=== PATIENT | female | born 1975 | race Caucasian/White ===

== ENCOUNTER 2019-06-28 21:01 | Emergency (ER) | payer SELFPAY ==
[2019-06-28 21:26] VITALS: BP 158/90; PULSE 108; RESP 18; TEMP 36.6; O2SAT 98; BMI 19.5
--- NOTE | 2019-06-28 21:28 | W.ED.SKABFB ---
HPI - Skin/Abscess/Foreign Bdy General: Chief complaint: General Medical Stated complaint: skin irritation on scalp Time Seen by Provider: 06/28/19 21:28 Source: patient Mode of arrival: ambulatory Limitations: no limitations History of Present Illness: HPI narrative: 43-year-old female states she had irritation to her posterior scalp roughly 2 hours ago. She said it was very pruritic in nature and some pain to. States that it is gradually resolved and now is very minimal pain. Denies any use of dye. MD complaint: rash Onset (ago): hour(s) Tetanus up to date: yes Location: head Severity: mild Quality: burning Pain Consistency: now resolved Relieving factors: none Exacerbating factors: none Context: none Associated symptoms: Reports itching; Deny chills, fever(s), nausea or vomiting Review of Systems Const: Denies: fever, chills, body aches or change in appetite Eyes: Denies: blurry vision or eye discomfort ENMT: Denies: throat pain or dental pain Card: Denies: chest pain Resp: Denies: shortness of breath GI: Denies: abdominal pain, nausea, vomiting or diarrhea : Denies: painful urination Musc: Denies: neck pain or back pain Skin/Breast: Reports: rash Neuro: Denies: headache Psych: Denies: depression Ervin/Lymph: Denies: easy bruising All/Imm: Denies: hives PFSH ED PFSH: Social History Smoking and tobacco status: current every day smoker Physical Exam Const: COMMON NORMALS: no apparent distress, oriented x3 and healthy appearing HENMT: COMMON NORMALS: normocephalic and head/scalp atraumatic HEAD & SCALP: normocephalic and atraumatic Eye: COMMON NORMALS: PERRL and EOMs intact bilaterally PUPIL: Yes PERRL Neck/C-Spine: COMMON NORMALS: full ROM and supple Chest: COMMONS NORMALS: inspection of chest normal and palpation of chest normal Resp: COMMON NORMALS: normal respiratory effort, no retractions, no use of accessory muscles and clear to auscultation bilaterally AUSCULTATION: clear to auscultation bilaterally Cardio: COMMON NORMALS: regular rate, regular rhythm and no murmurs RATE: regular rate RHYTHM: regular rhythm GI: COMMON NORMALS: normal to inspection, nondistended, normoactive bowel sounds, soft to palpation, non-tender and no masses PALPATION: Yes soft Extremity: COMMON NORMALS: normal to inspection and full ROM Neuro: COMMON NORMALS: oriented x3, moves all extremities and no focal motor deficits Psych: COMMON NORMALS: mental status grossly normal, thought process normal and cooperative THOUGHT PROCESS: normal thought process Skin: COMMON NORMALS: no rashes or lesions noted and no wounds NARRATIVE SKIN EXAM: Irritation to posterior scalp. Very minimal area the very base of her hairline. No signs of abscess or infection. Appears to be dry skin in nature. GENERAL SKIN EXAM: no rashes or lesions noted MDM - Skin/Abscess/Foreign Bdy MDM Narrative: Medical decision making narrative: Patient presents for scalp irritation likely dry skin. Patient has no signs of major rash or abscess. Patient is to use lotion. She is stable for discharge and return if worsening. Discharge Plan Discharge Patient Disposition: Home, Self-Care Clinical Impression: Scalp irritation Condition: Stable Prescriptions: No Action Prilosec OTC 20 mg Tablet,Delayed Release (Dr/Ec) 20 mg PO DAILY RF: 0 Discharge Orders: Discharge Order (Routine); Ordered 06/28/19 Ordered By: Colleen Garcia Discharge Diet: Advance as tolerated Discharge Activity: Resume usual activity Patient Instructions: Acute Rash (ED) Coding Level of Care Code ED Executive Vice President for Dax Min
[2019-06-28] MEDS: diphenhydrAMINE 50 mg Capsule PO (21:36)
[2019-06-28 21:44] VITALS: BP 120/67; PULSE 74; RESP 18; O2SAT 99
== END 2019-06-28 21:44 | disposition home or self-care (01) ==
PROVIDERS: Emergency Provider Emergency Medicine
DX: R23.8 Other skin changes (principal); F17.200 Nicotine dependence, unspecified, uncomplicated
CPT/HCPCS: 12345; 99281; 99283; Q0163

== ENCOUNTER 2019-07-28 17:17 | Emergency (ER) | payer SELFPAY ==
[2019-07-28 18:09] VITALS: BP 145/77; PULSE 114; RESP 18; TEMP 36.6; O2SAT 99; BMI 19.5
--- NOTE | 2019-07-28 18:39 | W.ED.GENADLT ---
HPI - General Adult General: Chief complaint: General Medical Stated complaint: spot on neck Time Seen by Provider: 07/28/19 18:20 Source: patient Mode of arrival: ambulatory Limitations: no limitations History of Present Illness: HPI narrative: Patient is a 43-year-old female who presents to ED today with complaints of pain to the left posterior scalp that she has had for at least 6 months now. Patient tells me pain seems to be intermittent and describes as a sharp brief sensation. Patient tells me she has shaved her head because she thought the hair touching the area caused pain. She has not noticed any rashes or lesions to the area. She does not describe any radicular symptoms into her face or down her back or arm. She has not sought any evaluation as an outpatient for this. Onset (ago): month(s) Location: head and neck Radiation: non-radiation Severity: moderate Quality: stabbing and sharp Pain Consistency: intermittent Relieving factors: none Associated symptoms: Reports no associated symptoms; Deny chest pain, dyspnea, headache(s), malaise, nausea, rash, palpitations, syncope or vomiting Treatments prior to arrival: none Review of Systems Const: Denies: fever, chills, body aches, change in appetite, change in weight, fatigue or malaise Eyes: Denies: change in vision, blurry vision, photophobia, eye discomfort, eye discharge, eye redness, floaters or seeing flashes ENMT: Denies: throat pain, enlarged tonsils, painful swallowing, hoarseness, mouth pain, oral sores/lesions, dental pain, ear pain, tinnitus, disequilibrium, nasal discharge, nasal congestion or nose bleeds Card: Denies: chest pain, palpitations, irregular heart rhythm, edema, lightheadedness, syncope or pre-syncope Resp: Denies: shortness of breath GI: Denies: nausea or vomiting Musc: Reports: neck pain; Denies: back pain, extremity pain, extremity swelling, joint pain or joint swelling Skin/Breast: Denies: rash Neuro: Denies: headache, numbness in extremities, weakness in extremities, changes in sensation, lack of coordination, difficulty walking, frequent falls, dizziness, vertigo or slurred speech PFS ED PFSH: Social History Smoking and tobacco status: current every day smoker Female Reproductive History: Date of last menstrual period: 06/13/19 Physical Exam Const: COMMON NORMALS: no apparent distress, average body habitus, oriented x3, no limitations, healthy appearing, alert and well nourished ORIENTATION/CONSCIOUSNESS: Yes oriented to person, Yes oriented to place and Yes oriented to time HENMT: COMMON NORMALS: normocephalic, head/scalp atraumatic, hearing grossly normal bilaterally, external ears normal, EAC's normal, TM's normal bilaterally, external nose normal, nasal mucous membranes and turbinates normal, moist oral mucous membranes, oropharynx normal and gingiva normal HEAD & SCALP: normal to inspection, normocephalic and atraumatic FACE & SINUS: normal facial exam and sinuses nontender NOSE: external nose normal and nasal mucous membranes and turbinates normal EXTERNAL EAR: Yes external ears normal EXTERNAL AUDITORY CANAL: EAC's normal TYMPANIC MEMBRANE: TM's normal bilaterally MOUTH: lip normal and tongue normal THROAT: posterior oropharynx normal, tonsils normal and uvula midline Eye: COMMON NORMALS: PERRL, EOMs intact bilaterally, conjunctivae normal and no scleral icterus CONJUNCTIVA: Yes conjunctivae normal PUPIL: Yes PERRL Neck/C-Spine: COMMON NORMALS: full ROM, no lymphadenopathy and no meningeal signs OTHER: Patient not having any pain currently but points to the area of pain about her left occipital region. She does have a few 1-2 cm cysts along the left cervical spine a little further down that she states are chronic Resp: COMMON NORMALS: normal respiratory effort and clear to auscultation bilaterally AUSCULTATION: clear to auscultation bilaterally Cardio: COMMON NORMALS: regular rate and regular rhythm RATE: regular rate RHYTHM: regular rhythm Neuro: MAGALY COMA SCALE: document GCS findings Magaly coma scale eye opening: Spontaneous Hewett coma scale verbal response: Orientated Magaly coma scale motor response: Obey commands Hewett coma scale total score: 15 COMMON NORMALS: oriented x3, CN's II-XII intact bilaterally, moves all extremities, no focal motor deficits, no sensory deficits noted and gait normal SENSORIUM/ORIENTATION: Yes alert, Yes oriented to person, Yes oriented to place and Yes oriented to time MENINGEAL SIGNS: Yes no meningeal signs Skin: COMMON NORMALS: no rashes or lesions noted GENERAL SKIN EXAM: no rashes or lesions noted Course Vital Signs: Vital signs: Vital Signs Temperature 98 F 07/28/19 18:09 Pulse Rate 114 H 07/28/19 18:09 Respiratory Rate 18 07/28/19 18:09 Blood Pressure 145/77 07/28/19 18:09 Pulse Oximetry 99 07/28/19 18:09 MDM - General Adult MDM Narrative: Medical decision making narrative: What patient describes sounds like an occipital neuralgia. She has had these symptoms intermittently for approximately 6 months. Ultimately I recommend she follow-up with PCP for further evaluation so they can start medications such as Tegretol/Gabapentin if indicated. She also has some additional cysts to the left of her lower cervical spine. I do not palpate any cystic-like structures near her occipital region that could be causing symptoms. I do not feel patient needs any ED work-up today as her complaint is non-emergent in nature. Her information was placed with case management for further follow-up. Discharge Plan Discharge Patient Disposition: Home, Self-Care Clinical Impression: Occipital neuralgia of left side Condition: Stable Prescriptions: No Action Prilosec OTC 20 mg Tablet,Delayed Release (Dr/Ec) 20 mg PO DAILY RF: 0 Discharge Orders: Discharge Order (Routine); Ordered 07/28/19 Ordered By: Honey Quintana Discharge Diet: Usual diet Discharge Activity: Resume usual activity Activity Restrictions/Additional Instructions: As discussed case management should contact you to set you up with a primary care provider for further evaluation. Discharge Date/Time: 07/28/19 19:37 Coding Level of Care Code ED Regional Owner Operator Truck Driver for Dax Min
--- NOTE | 2019-07-29 13:14 | DCPLANNER ---
quality compliance manager had message to speak with patient about getting established with a primary care physician. quality compliance manager was unable to speak with patient at this time, a voicemail was left for patient to return onsite case manager phone call.
== END 2019-07-28 19:37 | disposition home or self-care (01) ==
PROVIDERS: Emergency Provider Physician Assistant
DX: M54.81 Occipital neuralgia (principal); F17.210 Nicotine dependence, cigarettes, uncomplicated
CPT/HCPCS: 12345; 99281

== ENCOUNTER 2019-09-13 15:02 | Emergency (ER) | payer SELFPAY ==
[2019-09-13 15:47] VITALS: BP 121/62; PULSE 69; RESP 18; TEMP 36.4; O2SAT 99; BMI 19.5
--- NOTE | 2019-09-13 17:08 | W.ED.EYEPROB ---
HPI - Eye Problem General: Chief complaint: Eye Problems Stated complaint: cant see out of r eye Time Seen by Provider: 09/13/19 16:55 History of Present Illness: HPI Narrative: 43-year-old female who was washing her hair today got some soap in her eye and is been unable to open her eyes since then is been extremely photophobic and tender. She denies any other trauma or injury to the eye when she is able to open her eyes she can distinguish light and see with it. chief complaint: eye pain Onset (ago): hour(s) Onset description: sudden Duration: constant Location: right eye Eye Symptoms: burning, redness, pain, foreign body sensation, blurry vision and photophobia Place: home Mechanism: chemical exposure Severity: severe If Pain, Quality: sharp Associated symptoms: Reports no associated symptoms; Denies fever(s) Treatments Prior to Arrival: none Review of Systems Const: Denies: fever(s), chills, body aches, change in appetite, fatigue or malaise ENMT: Denies: throat pain, ear or mastoid pain, nasal discharge or nasal congestion Card: Denies: chest pain, edema, dyspnea on exertion or orthopnea Resp: Denies: dyspnea, productive cough or non-productive cough Skin/Breast: Denies: rash or pruritus PFSH ED PFSH: Social History Smoking and tobacco status: current every day smoker Female Reproductive History: Date of last menstrual period: 09/10/19 Physical Exam Const: COMMON NORMALS: no acute distress GENERAL APPEARANCE: cooperative and comfortable ORIENTATION/CONSCIOUSNESS: Yes awake, Yes oriented to person, Yes oriented to place and Yes oriented to time HENMT: COMMON NORMALS: normocephalic, atraumatic, hearing grossly normal bilaterally, external ears normal, EAC's normal, TM's normal bilaterally, Normal nasal mucous membranes and turbinates present, moist oral mucous membranes and oropharynx normal HEAD & SCALP: normocephalic and atraumatic NOSE: Normal nasal mucous membranes and turbinates present EXTERNAL EAR: Yes external ears normal EXTERNAL AUDITORY CANAL: EAC's normal TYMPANIC MEMBRANE: TM's normal bilaterally Eye: OTHER: Moderate swelling of the right upper eyelid the patient is holding her eyes shut when eyes open sclera and conjunctiva mildly reddened pupil reactive patient is able to distinguish light and dark but she has moderately photophobic. Subsequently tetracaine topical applied and then fluorescein applied I examined with Wood's lamp. No foreign bodies no corneal abrasions. Neck/C-Spine: COMMON NORMALS: full ROM, no lymphadenopathy, supple and no JVD Lymph: LYMPHATIC: no lymphadenopathy noted and no lymphedema noted Resp: COMMON NORMALS: normal respiratory effort, No retractions, No use of accessory muscles and clear to auscultation bilaterally AUSCULTATION: clear to auscultation bilaterally Cardio: COMMON NORMALS: no JVD, regular rate, regular rhythm and No murmurs present (Cardio) RATE: regular rate RHYTHM: regular rhythm GI: COMMON NORMALS: Soft to palpation and No hepatosplenomegaly present AUSCULTATION: Yes normoactive bowel sounds PALPATION: Yes Soft to palpation, No Tenderness to palpation present (GI), No Guarding due to palpation present (GI) and Yes No hepatosplenomegaly present Extremity: COMMON NORMALS: normal to inspection, capillary refill normal, no clubbing, cyanosis or edema, no calf tenderness and no pedal edema Neuro: SENSORIUM/ORIENTATION: Yes oriented to person, Yes oriented to place and Yes oriented to time Skin: COMMON NORMALS: no rashes or lesions noted GENERAL SKIN EXAM: no rashes or lesions noted Course Vital Signs: Vital signs: Vital Signs Temperature 97.6 F 09/13/19 15:47 Pulse Rate 70 09/13/19 18:00 Respiratory Rate 15 09/13/19 18:00 Blood Pressure 112/64 09/13/19 18:00 Pulse Oximetry 98 09/13/19 18:00 MDM - Eye Problem MDM Narrative: Medical decision making narrative: Acute iritis. He was started on topical TobraDex. Have her follow-up with ophthalmology or optometry in the next 2 to 3 days return if worsens Discharge Plan Discharge Patient Disposition: Home, Self-Care Clinical Impression: Acute iritis Condition: Stable Prescriptions: New TobraDex 0.3-0.1 % drops,suspension 2 drop ophthalmic (eye) Q6H 5 Days Qty: 10 RF: 0 No Action Prilosec OTC 20 mg Tablet,Delayed Release (Dr/Ec) 20 mg PO DAILY RF: 0 Discharge Orders: Discharge Order (Routine); Ordered 09/13/19 Ordered By: Poncho Mason Activity Restrictions/Additional Instructions: This management will call to refer you to the electrician apprentice powerhouse Discharge Date/Time: 09/13/19 18:01 Coding Level of Care Code ED Drywall Metal Stud Worker for Chg Fwd Exam Comprehensive
[2019-09-13] MEDS: tetanus-dipt-pertussis 0.5 mL SDV IM (17:43)
[2019-09-13 18:00] VITALS: BP 112/64; PULSE 70; RESP 15; O2SAT 98
--- NOTE | 2019-09-13 18:02 | PC.NURSE ---
Read and agree with assessment
--- NOTE | 2019-09-14 11:16 | DCPLANNER ---
business change manager had message to schedule a follow up appointment for patient with an consumer analyst. business change manager called the phone number [phone], was told that the wireless customer is unavailable at this time. business change manager was unable to speak with patient at this time, and unable to leave a voicemail for patient.
== END 2019-09-13 18:01 | disposition home or self-care (01) ==
PROVIDERS: Emergency Provider Family Medicine
DX: H20.00 Unspecified acute and subacute iridocyclitis (principal); F17.210 Nicotine dependence, cigarettes, uncomplicated; Z23 Encounter for immunization
CPT/HCPCS: 12345; 90715; 99281; 99283

== ENCOUNTER 2020-01-19 11:27 | Emergency (ER) | payer SELFPAY ==
[2020-01-19 11:44] VITALS: BP 124/69; PULSE 96; RESP 14; TEMP 36.4; O2SAT 100; BMI 19.5
--- NOTE | 2020-01-19 11:51 | ED_ITS ---
HPI - Eye Problem General: Chief complaint: Eye Problems Stated complaint: left eye pain Time Seen by Provider: 01/19/20 11:48 Source: patient Mode of arrival: ambulatory Limitations: no limitations History of Present Illness: HPI Narrative: Eunice is a very nice 44-year-old female who presents to the ER with a complaint of left eye pain. She states she woke up this way. She has a history of similar symptoms that she said she had to be placed on an antibiotic for. She thinks it is possible she could have scratched her eye but does not remember anything specifically flying into her eye. Patient has no headache or nausea or vomiting. She states her vision is just blurry but she does have photophobia associated with this. Patient states this is like when she had similar pain in the past. Associated symptoms: Denies fever(s), headache(s), nausea, neck pain or vomiting Review of Systems Const: Denies: fever(s), chills, body aches, fatigue, malaise or diaphoresis Eyes: Reports: blurry vision, photophobia, eye discomfort, eye discharge and eye redness ENMT: Denies: throat pain, odynophagia, hoarseness, swelling of lips/tongue, ear or mastoid pain, ear discharge, change in hearing or nasal discharge Card: Denies: chest pain, palpitations, irregular heart rhythm, edema, lightheadedness, syncope, pre-syncope, dyspnea on exertion or orthopnea Resp: Denies: dyspnea, productive cough, non-productive cough, wheezing, hemoptysis or chest congestion GI: Denies: abdominal pain, nausea, vomiting, hematemesis, coffee ground emesis, heartburn, diarrhea, constipation, GI cramping, hematochezia or melena : Denies: flank pain, dysuria, urinary frequency, urinary urgency or jim turia Musc: Denies: neck pain, back pain, extremity pain, extremity swelling, joint pain, joint swelling, joint redness, joint warmth or joint stiffness Skin/Breast: Denies: rash, pruritus, erythema, skin pain or skin tenderness Neuro: Denies: headache(s), numbness in extremities, weakness in extremities, sensory changes, lack of coordination, difficulty walking, dizziness, vertigo, confusion, Slurred speech present or seizure-like activity Jim/Lymph: Denies: easy bruising, easy bleeding, petechiae, purpura or enlarged lymph nodes All/Imm: Denies: urticaria, throat swelling, tongue swelling, facial swelling or acute wheezing PFSH ED PFSH: Medical History (Updated 01/19/20 @ 12:19 by Keiry Littlejohn) No pertinent past medical history Social History Smoking and tobacco status: current every day smoker Female Reproductive History: Date of last menstrual period: 09/10/19 Physical Exam Const: COMMON NORMALS: no acute distress, patient oriented x3, no limitations and alert GENERAL APPEARANCE: cooperative HENMT: COMMON NORMALS: normocephalic, atraumatic, external ears normal, EAC's normal and Normal external nose present HEAD & SCALP: normal to inspection, normocephalic and atraumatic FACE & SINUS: normal facial exam and face symmetric NOSE: Normal external nose present and Normal nares present EXTERNAL EAR: Yes external ears normal EXTERNAL AUDITORY CANAL: EAC's normal MOUTH: Normal oral and palatal mucosa present, lip normal and tongue normal Eye: COMMON NORMALS: Equal, round and reactive pupils present, EOMs intact bilaterally, conjunctivae normal, no scleral icterus and normal visual chester by confrontation VISUAL ACUITY: Yes acuity normal (Once tetracaine given normal vision acuity from the left eye) ALIGNMENT: Yes alignment normal PERIORBITAL: periorbital findings normal EYELID: eyelids normal CONJUNCTIVA: Yes conjunctivae normal PUPIL: Yes Equal, round and reactive pupils present SLIT LAMP EXAM: Yes slit lamp exam performed with fluorescein OTHER: Large corneal abrasion noted in the r inferior portion of the cornea to the lateral aspect of the left eye. No definitive evidence of foreign body present. Neck/C-Spine: COMMON NORMALS: full ROM, no lymphadenopathy, supple, no meningeal signs and no JVD GENERAL: Yes normal visual inspection and Yes trachea midline Chest: COMMONS NORMALS: normal inspection of the chest and normal palpation of entire chest wall Resp: COMMON NORMALS: normal respiratory effort, No retractions, No use of accessory muscles and clear to auscultation bilaterally EFFORT & INSPECTION: Yes able to speak in complete sentences and Yes symmetric chest movement AUSCULTATION: clear to auscultation bilaterally, no crackles, no rales, no rhonchi and no wheezes Cardio: COMMON NORMALS: no JVD, regular rate, regular rhythm, S1 normal heart sound present and S2 normal heart sound present RATE: regular rate RHYTHM: regular rhythm HEART SOUNDS: S1 normal heart sound present, S2 normal heart sound present, no click, no gallops, no murmurs and no rubs GI: COMMON NORMALS: Soft to palpation and No hepatosplenomegaly present PALPATION: Yes Soft to palpation, No Tenderness to palpation present (GI), No Guarding due to palpation present (GI), No Rigid due to palpation, Yes No hepatosplenomegaly present, No Hernia present, No Palpable mass present and No Pulsatile mass present : COMMON NORMALS: Yes no CVA tenderness BLADDER/KIDNEY EXAM: Yes no CVA tenderness EXTERNAL FEMALE EXAM: No Hernia present Back/Pelvis: COMMON NORMALS: no CVA tenderness, thoracic and lumbar spine normal to inspection, no thoracic nor lumbar tenderness and thoraco-lumbar ROM normal Extremity: COMMON NORMALS: normal to inspection, full ROM, capillary refill normal, no joint enlargement, no clubbing, cyanosis or edema and no calf tenderness Neuro: COMMON NORMALS: patient oriented x3, CN's II-XII intact bilaterally, moves all extremities, no focal motor deficits and no sensory deficits noted SENSORIUM/ORIENTATION: Yes alert MENINGEAL SIGNS: Yes no meningeal signs SPEECH: speech normal Psych: COMMON NORMALS: mental status grossly normal, Normal thought process present, cooperative, normal affect, speech normal and activity/motor behavior normal SPEECH: Yes normal speech THOUGHT PROCESS: Normal thought process present Skin: COMMON NORMALS: no rashes or lesions noted, turgor normal, no jaundice, no petechiae and no mottling GENERAL SKIN EXAM: no rashes or lesions noted and turgor normal Course Vital Signs: Vital signs: Vital Signs Temperature 97.5 F L 01/19/20 11:44 Pulse Rate 96 01/19/20 11:44 Respiratory Rate 14 01/19/20 11:44 Blood Pressure 124/69 01/19/20 11:44 Pulse Oximetry 100 01/19/20 11:44 MDM - Eye Problem MDM Narrative: Medical decision making narrative: The case was reviewed with ASUNCION Rai, on-call for Dr. Malagon. He agrees that the patient can be seen in the office today for recheck. Concern is the degree of corneal abrasion that is present plus the purulent discharge. Patient agrees that she can make this appointment and we will discharge her to Dr. Malagon's office soon as that time was given to us. Dr. Malagon's office is called back and they will see the patient today at 2:00. Patient declines to wait here for further numbing medicine but would take 1 or 2 drops just before she goes and she will follow-up with Dr. Malagon today for recheck. Discharge Plan Discharge Patient Disposition: Home Clinical Impression: Corneal abrasion Qualifiers: Encounter type: initial encounter Laterality: left Qualified Code(s): S05.02XA - Injury of conjunctiva and corneal abrasion without foreign body, left eye, initial encounter Condition: Stable Prescriptions: No Action Prilosec OTC 20 mg Tablet,Delayed Release (Dr/Ec) 20 mg PO DAILY RF: 0 Discharge Orders: Discharge Order (Routine); Ordered 01/19/20 Ordered By: Keiry Littlejohn Discharge Diet: Usual diet Discharge Activity: Limit activity as instructed Patient Instructions: Corneal Abrasion (ED) Activity Restrictions/Additional Instructions: Please return to the ER immediately for any of the signs or symptoms listed on your discharge instruction sheets, worsening/changing of your symptoms, you are not getting better as quickly as expected, or for ANY other cause or concerns. Go directly to Dr. Malagon office for an appointment to be seen at 2:00. You should be there early so they can be certain that you can see him immediately at 2 PM. If for any reason this falls through return to the ER for recheck. Discharge Date/Time: 01/19/20 12:44 Coding Level of Care Code ED Gear Machine Operator General for Dax Fwrinku Exam Comprehensive
[2020-01-19] MEDS: fluorescein 1 mg Strip EYE-LEFT (11:59)
[2020-01-19] MEDS: tetracaine 0.5% Op Soln 4 mL Btl 1 DROP EYE-LEFT (12:00)
--- NOTE | 2020-01-19 12:37 | PC.NURSE ---
slit lamp in room along with the monson lamp
== END 2020-01-19 12:44 | disposition home or self-care (01) ==
PROVIDERS: Emergency Provider Emergency Medicine
DX: S05.02XA Injury of conjunctiva and corneal abrasion without foreign body, left eye, initial encounter (principal); F17.210 Nicotine dependence, cigarettes, uncomplicated; X58.XXXA Exposure to other specified factors, initial encounter
CPT/HCPCS: 12345; 99281; 99282

== ENCOUNTER 2021-05-07 04:17 | Emergency (ER) | payer SELFPAY ==
[2021-05-07 04:30] VITALS: BP 115/51; PULSE 108; RESP 18; TEMP 37.3; O2SAT 99; BMI 20.3
--- NOTE | 2021-05-07 04:40 | W.ED.NECK ---
HPI - Neck Pain/Injury General: Chief Complaint: Neck Pain/Injury Stated Complaint: Knots on back of neck Time Seen by Provider: 05/07/21 04:37 Source: patient Mode of arrival: ambulatory Limitations: no limitations History of Present Illness: 45-year-old female who states she has had a knot to her left upper neck has been going on for 5 to 6 years. States its been slowly growing is currently the size of a large marble she states that she started to get concerned that was going to go into her neck states it does cause some slight pain at times but typically it is pain-free she denies any drainage from it denies any erythema or fevers denies any drainage. Associated symptoms: Denies headache(s) or nausea Review of Systems Const: Denies: fever(s), chills, body aches or change in appetite Eyes: Denies: blurry vision or eye discomfort ENMT: Denies: throat pain or dental pain Card: Denies: chest pain Resp: Denies: dyspnea GI: Denies: abdominal pain, nausea, vomiting or diarrhea : Denies: dysuria Musc: Denies: neck pain or back pain Skin/Breast: Reports: lesions; Denies: rash Neuro: Denies: headache(s) Psych: Denies: depression Ervin/Lymph: Denies: easy bruising All/Imm: Denies: urticaria PFSH ED PFSH: Medical History (Updated 05/07/21 @ 04:43 by Colleen Garcia MD) No pertinent past medical history Social History Smoking and tobacco status: current every day smoker Female Reproductive History: Date of last menstrual period: 09/10/19 Physical Exam Const: COMMON NORMALS: no acute distress, patient oriented x3 and healthy appearing HENMT: COMMON NORMALS: normocephalic and atraumatic HEAD & SCALP: normocephalic and atraumatic Eye: COMMON NORMALS: Equal, round and reactive pupils present and EOMs intact bilaterally PUPIL: Yes Equal, round and reactive pupils present Neck/C-Spine: COMMON NORMALS: full ROM and supple Chest: COMMONS NORMALS: normal inspection of the chest and normal palpation of entire chest wall Resp: COMMON NORMALS: normal respiratory effort, No retractions, No use of accessory muscles and clear to auscultation bilaterally AUSCULTATION: clear to auscultation bilaterally Cardio: COMMON NORMALS: regular rate, regular rhythm and No murmurs present (Cardio) RATE: regular rate RHYTHM: regular rhythm GI: COMMON NORMALS: Normal to inspection, nondistended, normoactive bowel sounds present, Soft to palpation, non-tender and no masses PALPATION: Yes Soft to palpation Extremity: COMMON NORMALS: normal to inspection and full ROM Neuro: COMMON NORMALS: patient oriented x3, moves all extremities and no focal motor deficits Psych: COMMON NORMALS: mental status grossly normal, Normal thought process present and cooperative THOUGHT PROCESS: Normal thought process present Skin: COMMON NORMALS: no rashes or lesions noted and no wounds NARRATIVE SKIN EXAM: Large marble size lipoma to the left side of her upper back no warmth or erythema GENERAL SKIN EXAM: no rashes or lesions noted Course Vital Signs: Vital signs: Vital Signs Temperature 99.2 F 05/07/21 04:30 Pulse Rate 108 H 05/07/21 04:30 Respiratory Rate 18 05/07/21 04:30 Blood Pressure 115/51 05/07/21 04:30 Pulse Oximetry 99 05/07/21 04:30 MDM - Neck Pain/Injury Medical Decision Making Patient presents here with a likely lipoma to the back of her neck that is been there for roughly 5 to 6 years soft no signs of abscess or cellulitis we will get her follow-up with dermatology for likely removal she was stable for discharge. Discharge Plan Discharge Patient Disposition: Home Clinical Impression: Lipoma Condition: Stable Prescriptions: No Action Prilosec OTC 20 mg Tablet,Delayed Release (Dr/Ec) 20 mg PO DAILY 0RF Discharge Orders: Discharge ED (Routine); Ordered 05/07/21 Ordered By: Colleen Garcia Referrals: Shobha Burden DO [Physician] - 1-3 days Discharge Diet: Advance as tolerated Discharge Activity: Resume usual activity Patient Instructions: Lipoma (ED) Coding Level of Care Code ED Peat Shredder Tender for Dax Min
--- NOTE | 2021-05-07 09:15 | DCPLANNER ---
Addendum entered by Halima Delgado 05/10/21 05:33: Patient has a follow up appointment scheduled with Dermatology scheduled for Sunday, June 13, [address] at 2:[address] Burden. Clinic will call patient with appointment information. Original Note: manager of sustainability had message to schedule a follow up appointment for patient with dermatology. manager of sustainability called the dermatology clinic, spoke with Mary, gave clinic patients information. manager of sustainability was told that patients information would be printed and reviewed. Clinic will call patient with appointment information.
== END 2021-05-07 04:51 | disposition home or self-care (01) ==
PROVIDERS: Emergency Provider Emergency Medicine
DX: D17.9 Benign lipomatous neoplasm, unspecified (principal); F17.210 Nicotine dependence, cigarettes, uncomplicated
CPT/HCPCS: 99281

== ENCOUNTER 2023-01-10 16:54 | Inpatient (IN) | payer MEDICAID, SELFPAY ==
[2023-01-10] VITALS (8 sets, daily range): BP systolic 115–128; BP diastolic 61–98; PULSE 100–129; RESP 18–24; TEMP 36.4–36.7; O2SAT 9–100; BMI 19.5
--- NOTE | 2023-01-10 17:21 | XRR_ITS ---
PROCEDURE INFORMATION: Exam: XR Chest Exam date and time: 01/10/2023 5:41 PM Age: 47 years old Clinical indication: Shortness of breath; Additional info: Dyspnea/cough TECHNIQUE: Imaging protocol: Radiologic exam of the chest. Views: 1 view. COMPARISON: CR XR KUB [id number] 05/15/2018 10:06 PM FINDINGS: Lungs: Irregular opacities in the lung bases bilaterally. Pleural spaces: Unremarkable. No pleural effusion. No pneumothorax. Heart/Mediastinum: Unremarkable. No cardiomegaly. Bones/joints: Unremarkable. XR/XR chest 1V portable [id number] IMPRESSION: Irregular opacities in the lung bases bilaterally.
--- NOTE | 2023-01-10 17:21 | ED_ITS ---
HPI - SOB/Dyspnea General: Chief Complaint: Shortness of Breath/Dyspnea Stated Complaint: SOB/anxiety Time Seen by Provider: 01/10/23 17:19 Source: patient Mode of arrival: ambulatory History of Present Illness: Associated symptoms: Deny abdominal pain, chest pain or fever(s) Review of Systems Const: Denies: fever(s) or chills Card: Denies: chest pain Resp: Reports: dyspnea, non-productive cough and wheezing GI: Denies: abdominal pain : Denies: dysuria, urinary frequency or urinary urgency Musc: Denies: neck pain or back pain Skin/Breast: Denies: rash PFSH ED PFSH: Medical History No pertinent past medical history Social History Smoking and tobacco/nicotine status: current every day tobacco/nicotine user Physical Exam Const: COMMON NORMALS: no acute distress GENERAL APPEARANCE: cooperative and comfortable ORIENTATION/CONSCIOUSNESS: Yes awake, Yes oriented to person, Yes oriented to place and Yes oriented to time HENMT: COMMON NORMALS: normocephalic, atraumatic and hearing grossly normal bilaterally HEAD & SCALP: normocephalic and atraumatic Resp: COMMON NORMALS: normal respiratory effort, No retractions, No use of accessory muscles and clear to auscultation bilaterally AUSCULTATION: clear to auscultation bilaterally Cardio: COMMON NORMALS: regular rate, regular rhythm and No murmurs present (Cardio) RATE: regular rate RHYTHM: regular rhythm GI: COMMON NORMALS: Soft to palpation and No hepatosplenomegaly present AUSCULTATION: Yes normoactive bowel sounds PALPATION: Yes Soft to palpation, No Tenderness to palpation present (GI), No Guarding due to palpation present (GI) and Yes No hepatosplenomegaly present Extremity: COMMON NORMALS: normal to inspection, capillary refill normal, no clubbing, cyanosis or edema, no calf tenderness and no pedal edema Neuro: SENSORIUM/ORIENTATION: Yes oriented to person, Yes oriented to place and Yes oriented to time Skin: COMMON NORMALS: no rashes or lesions noted GENERAL SKIN EXAM: no ra shes or lesions noted Course Vital Signs: Vital signs: Vital Signs Temperature 97.5 F L 01/10/23 17:10 Pulse Rate 129 H 01/10/23 17:10 Respiratory Rate 18 01/10/23 17:10 Blood Pressure 120/61 01/10/23 17:10 Pulse Oximetry 93 01/10/23 17:10 Oxygen Delivery Me thod Room Air 01/10/23 17:10 Discharge Plan Discharge Condition: Stable Prescriptions: No Action Prilosec OTC 20 mg Tablet,Delayed Release (Dr/Ec) 20 mg PO DAILY Coding Level of Care Code ED Toggle Press Folder And Feeder for Dax Min
[2023-01-10] MEDS: ipratropium-albuterol 3 mL Neb INHALATION (17:56)
--- NOTE | 2023-01-10 17:58 | ECG_ITS ---
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 Measurements Intervals [place] Rate: 108 P: 44 [place]: 165 QRS: -50 QRSD: 169 T: 108 QT: 385 QTc: 516 Interpretive Statements SINUS TACHYCARDIA LEFT ATRIAL ENLARGEMENT [-0.15mV P-WAVE IN V1/V2] LEFT AXIS DEVIATION [QRS AXIS < -30] LEFT BUNDLE BRANCH BLOCK [120+ ms QRS DURATION, 80+ ms Q/S IN V1/V2, 85+ ms R IN I/aVL/V5/V6] No previous ECG available for comparison Electronically Signed On 01-10-2023 21:27:54 CDT by Ron Graham M.D. [id number]
--- NOTE | 2023-01-10 17:59 | W.ED.SOB ---
HPI - SOB/Dyspnea General: Chief Complaint: Shortness of Breath/Dyspnea Stated Complaint: SOB/anxiety Time Seen by Provider: 01/10/23 17:19 Source: patient Mode of arrival: ambulatory Limitations: no limitations History of Present Illness: HPI Narrative: 47-year-old female who has a history of asthma states that she had ran out of her inhaler states been having some shortness of breath for 2 weeks it got much worse this morning at 7 AM. She is wheezing here she has had a slight cough she denies any fever she denies any chest pain she denies any worsening improving factors. Associated symptoms: Deny abdominal pain, chest pain, fever(s), nausea or vomiting Review of Systems Const: Denies: fever(s), chills, body aches or change in appetite Eyes: Denies: blurry vision or eye discomfort ENMT: Denies: throat pain or dental pain Card: Denies: chest pain Resp: Reports: dyspnea, non-productive cough and wheezing GI: Denies: abdominal pain, nausea, vomiting or diarrhea : Denies: dysuria Musc: Denies: neck pain or back pain Skin/Breast: Denies: rash Neuro: Denies: headache(s) Psych: Denies: depression Ervin/Lymph: Denies: easy bruising All/Imm: Denies: urticaria PFSH ED PFSH: Medical History No pertinent past medical history Social History Smoking and tobacco/nicotine status: current every day tobacco/nicotine user Physical Exam Const: COMMON NORMALS: patient oriented x3 HENMT: COMMON NORMALS: normocephalic and atraumatic HEAD & SCALP: normocephalic and atraumatic Eye: COMMON NORMALS: Equal, round and reactive pupils present and EOMs intact bilaterally PUPIL: Yes Equal, round and reactive pupils present Neck/C-Spine: COMMON NORMALS: full ROM and supple Chest: COMMONS NORMALS: normal inspection of the chest and normal palpation of entire chest wall Resp: COMMON NORMALS: No retractions and No use of accessory muscles AUSCULTATION: wheezes Cardio: COMMON NORMALS: regular rhythm and No murmurs present (Cardio) RATE: tachycardic RHYTHM: regular rhythm GI: COMMON NORMALS: Normal to inspection, nondistended, normoactive bowel sounds present, Soft to palpation, non-tender and no masses PALPATION: Yes Soft to palpation Extremity: COMMON NORMALS: normal to inspection and full ROM Neuro: COMMON NORMALS: patient oriented x3, moves all extremities and no focal motor deficits Psych: COMMON NORMALS: mental status grossly normal, Normal thought process present and cooperative THOUGHT PROCESS: Normal thought process present Skin: COMMON NORMALS: no rashes or lesions noted and no wounds GENERAL SKIN EXAM: no rashes or lesions noted Course Vital Signs: Vital signs: Vital Signs Temperature 97.5 F L 01/10/23 17:10 Pulse Rate 114 H 01/10/23 19:07 Respiratory Rate 22 H 01/10/23 19:07 Blood Pressure 128/98 01/10/23 19:07 Pulse Oximetry 93 01/10/23 19:07 Oxygen Delivery Me thod Room Air 01/10/23 19:07 MDM - SOB/Dyspnea Medical Decision Making Patient presents here with dyspnea likely from new onset CHF CT shows vascular congestion with cardiomegaly her BNP is elevated she had no chest pain here we will treat with Ave almeida to the hospitalist will admit to [facility] Medical Records I reviewed the patient's medical records. Lab Data I reviewed the patient's lab results. 01/10/23 17:50 01/10/23 17:50 Labs/Radiology: Radiology Impressions Chest X-Ray 01/10/23 17:21 IMPRESSION: Irregular opacities in the lung bases bilaterally. Chest CTA 01/10/23 18:11 IMPRESSION: 1. No pulmonary embolus. 2. Cardiomegaly with bilateral pleural effusions and pulmonary vascular congestion consistent with CHF exacerbation. Laboratory Results WBC 7.38 10^3/uL (3.29-11.43) 01/10/23 17:50 RBC 4.64 10^6/uL (3.85-5.65) 01/10/23 17:50 Hgb 12.30 g/dL (11.27-16.99) 01/10/23 17:50 Hct 40.4 % (36-47) 01/10/23 17:50 MCV 87.1 fl (85-98) 01/10/23 17:50 MCH 26.5 pg (27-33) L 01/10/23 17:50 MCHC 30.4 g/dL (30-55) 01/10/23 17:50 RDW 17.2 % (12.1-15.1) H 01/10/23 17:50 Plt Count 474 10^3/cmm (157-399) H 01/10/23 17:50 MPV 8.2 fL (7.4-10.4) 01/10/23 17:50 Neut % (Auto) 74.0 % 01/10/23 17:50 Lymph % (Auto) 17.9 % 01/10/23 17:50 [place] % (Auto) 6.1 % 01/10/23 17:50 Eos % (Auto) 1.1 % 01/10/23 17:50 Baso % (Auto) 0.4 % 01/10/23 17:50 Neut # (Auto) 5.46 10^3/uL (1.8-7.7) 01/10/23 17:50 Lymph # (Auto) 1.3 10^3/uL (0.8-4.8) 01/10/23 17:50 [place] # (Auto) 0.5 10^3/uL (0.2-0.9) 01/10/23 17:50 Eos # (Auto) 0.1 10^3/uL (0.0-0.8) 01/10/23 17:50 Baso # (Auto) 0.0 10^3/uL (0.0-0.1) 01/10/23 17:50 Nucleated RBC % (auto) 0 % 01/10/23 17:50 Nucleated RBCs # 0.0 /100WBC 01/10/23 17:50 Sodium 137 mmol/L (136-145) 01/10/23 17:50 Potassium 4.3 mmol/L (3.5-5.1) 01/10/23 17:50 Chloride 104 mmol/L (98-107) 01/10/23 17:50 Carbon Dioxide 24 mmol/L (22-29) 01/10/23 17:50 Anion Gap 13.3 (5-19) 01/10/23 17:50 BUN 15 mg/dL (6-20) 01/10/23 17:50 Creatinine 0.6 mg/dL (0.5-0.9) 01/10/23 17:50 GFR Calculation 106.7 mL/min (90-130) 01/10/23 17:50 Glucose 116 mg/dL (65-115) H 01/10/23 17:50 Calculated Osmolality 286 mOsm/kg (285-295) 01/10/23 17:50 Calcium 8.6 mg/dL (8.5-10.5) 01/10/23 17:50 Total Bilirubin 0.3 mg/dL (0.15-1.2) 01/10/23 17:50 AST 37 U/L (0-32) H 01/10/23 17:50 ALT 40 U/L (0-33) H 01/10/23 17:50 Alkaline Phosphatase 112 U/L (35-105) H 01/10/23 17:50 Troponin T Baseline 26 ng/L (0-10) H 01/10/23 17:50 NT-Pro-B Natriuret Pep 09850 pg/mL (0-125) H 01/10/23 17:50 Total Protein 6.3 g/dL (6.6-8.7) L 01/10/23 17:50 Albumin 3.7 g/dL (3.5-5.2) 01/10/23 17:50 Globulin 2.6 g/dL (1.3-4.6) 01/10/23 17:50 All radiology interpretation(s) finalized by discharge Critical Care Time Critical Care Time: Critical Care Time: Yes Total Critical Care Time: 45 Attestation: The high probability of a clinically significant, sudden or life threatening deterioration of the patient's cv system(s) required my full and direct attention, intervention and personal management. The critical care time is as shown. This time is in addition to time spent performing any reported procedures but includes the following: [x] Data and vital sign review and interpretation [x] Patient assessment, examination and intervention [x] Documentation [x] Medication orders and management Discharge Plan Discharge Patient Disposition: Admitted As Inpatient Clinical Impression: CHF exacerbation Condition: Stable Prescriptions: No Action Prilosec OTC 20 mg Tablet,Delayed Release (Dr/Ec) 20 mg PO DAILY Coding Level of Care Code ED Supervisor Beater Room for Dax Min
[2023-01-10] MEDS: dexamethasone 10 mg/mL INJ IM (18:06)
--- NOTE | 2023-01-10 18:11 | CTR_ITS ---
PROCEDURE INFORMATION: Exam: CTA Chest With Contrast Exam date and time: 01/10/2023 6:27 PM Age: 47 years old Clinical indication: Shortness of breath; Additional info: SOB TECHNIQUE: Imaging protocol: Computed tomographic angiography of the chest with contrast. Exam focused on the arteries. 3D rendering (Not supervised by radiologist): MIP and/or 3D reconstructed images were created by the technologist. Radiation optimization: All CT scans at this facility use at least one of these dose optimization techniques: automated exposure control; mA and/or kV adjustment per patient size (includes targeted exams where dose is matched to clinical indication); or iterative reconstruction. Contrast material: OMNI 350; Contrast volume: 81 ml; Contrast route: INTRAVENOUS (IV); REPORTING DATA: Count of CT and Cardiac NM exams in prior 12 months: This patient has received 0 known CTs and 0 known cardiac nuclear medicine studies in the 12 months prior to the current study. COMPARISON: CR (CHEST, ) 01/10/2023 5:41 PM RADIATION DOSE METRICS: Total DLP (mGy-cm): 211.66 FINDINGS: Pulmonary arteries: No pulmonary embolus. Aorta: Unremarkable. No aortic aneurysm. No aortic dissection. Lungs: Large right and small left pleural effusions with diffuse smooth increased septal markings throughout both lungs. No focal consolidation. The heart is enlarged. Pleural spaces: See Lungs finding. Heart: Cardiomegaly with bilateral pleural effusions and pulmonary vascular congestion consistent with CHF exacerbation. Lymph nodes: Unremarkable. No enlarged lymph nodes. Bones/joints: Unremarkable. No acute fracture. Soft tissues: Unremarkable. CT/CT angio chest PE protcl [id number] IMPRESSION: 1. No pulmonary embolus. 2. Cardiomegaly with bilateral pleural effusions and pulmonary vascular congestion consistent with CHF exacerbation.
[2023-01-10 18:26] LABS: Basophils % 0.4 %; Eosinophils # 0.1 10^3/uL (0.0-0.8); Eosinophils % 1.1 %; Hematocrit 40.4 % (36-47); Lymphocytes # 1.3 10^3/uL (0.8-4.8); Lymphocytes % 17.9 %; Mean Corpuscular HGB Conc 30.4 g/dL (30-55); Mean Corpuscular Hemoglobin 26.5 pg (27-33); Mean Corpuscular Volume 87.1 fl (85-98); Mean Platelet Volume 8.2 fL (7.4-10.4); Monocytes # 0.5 10^3/uL (0.2-0.9); Monocytes % 6.1 %; Neutrophils # 5.46 10^3/uL (1.8-7.7); Nucleated Red Blood Cells % 0 %; Platelet Count 474 10^3/cmm (157-399); Red Blood Count 4.64 10^6/uL (3.85-5.65); Red Cell Distribution Width 17.2 % (12.1-15.1); White Blood Count 7.38 10^3/uL (3.29-11.43)
[2023-01-10] MEDS: iohexol 350 mg/mL 500 mL Btl (per mL) IV (18:31)
[2023-01-10 18:37] LABS: Troponin(5th) Baseline 26 ng/L (0-10)
[2023-01-10 18:39] LABS: Alanine Aminotransferase 40 U/L (0-33); Albumin Level 3.7 g/dL (3.5-5.2); Alkaline Phosphatase 112 U/L (35-105); Anion Gap 13.3 (5-19); Aspartate Amino Transferase 37 U/L (0-32); Blood Urea Nitrogen 15 mg/dL (6-20); Calcium 8.6 mg/dL (8.5-10.5); Carbon Dioxide 24 mmol/L (22-29); Chloride 104 mmol/L (98-107); Globulin 2.6 g/dL (1.3-4.6); Glomerular Filtration Rate 106.7 mL/min (90-130); Glucose 116 mg/dL (65-115); Osmolality Calculated 286 mOsm/kg (285-295); Potassium 4.3 mmol/L (3.5-5.1); Sodium 137 mmol/L (136-145); Total Bilirubin 0.3 mg/dL (0.15-1.2); Total Protein 6.3 g/dL (6.6-8.7)
[2023-01-10 19:14] LABS: NT Pro B Type Natriuretic Pept 19060 pg/mL (0-125)
[2023-01-10] MEDS: FUROsemide 10 mg/mL SDV 4mL 40 MG IVP (19:23)
--- NOTE | 2023-01-10 20:11 | ECG_ITS ---
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 Measurements Intervals [place] Rate: 103 P: 51 [place]: 178 QRS: -53 QRSD: 170 T: 108 QT: 406 QTc: 532 Interpretive Statements SINUS TACHYCARDIA LEFT ATRIAL ENLARGEMENT [-0.15mV P-WAVE IN V1/V2] LEFT AXIS DEVIATION [QRS AXIS < -30] LEFT BUNDLE BRANCH BLOCK [120+ ms QRS DURATION, 80+ ms Q/S IN V1/V2, 85+ ms R IN I/aVL/V5/V6] Compared to ECG 01/10/2023 18:06:28 No significant changes Electronically Signed On 01-10-2023 21:30:09 CDT by Ron Graham M.D. [id number]
[2023-01-10 20:23] LABS: Troponin 5 2HR 45.79 ng/L (0-10)
[2023-01-10 20:25] LABS: Troponin 5 2HR Delta 19.79 ABS# (0-10)
[2023-01-10] MEDS: enoxaparin 60 mg/0.6 mL Syringe 50 MG SUBCUT (20:33)
[2023-01-10 20:46] LABS: Adenovirus Not Detected (NOT DETECT); Chlamydia Pneumoniae Not Detected (NOT DETECT); Coronavirus 229E,HKU1,NL63,OC4 Not Detected (NOT DETECT); Human Metapneumovirus Not Detected (NOT DETECT); Human Rhinovirus/Enterovirus Not Detected (NOT DETECT); Influenza A Not Detected (NOT DETECT); Influenza A H1 Not Detected (NOT DETECT); Influenza A H1-2009 Not Detected (NOT DETECT); Influenza A H3 Not Detected (NOT DETECT); Influenza B Not Detected (NOT DETECT); Mycoplasma Pneumoniae Not Detected (NOT DETECT); Parainfluenza Virus Type 1 Not Detected (NOT DETECT); Parainfluenza Virus Type 2 Not Detected (NOT DETECT); Parainfluenza Virus Type 3 Not Detected (NOT DETECT); Parainfluenza Virus Type 4 Not Detected (NOT DETECT); Respiratory Syncytial Virus A Not Detected (NOT DETECT); Respiratory Syncytial Virus B Not Detected (NOT DETECT); SARS-COV-2 Not Detected (NOT DETECT)
--- NOTE | 2023-01-10 21:23 | P.HP_ITS ---
Providers/Chief Complaint Admitting Physician: Thi Burnette MD Chief Complaint: SOB/anxiety History of Present Illness Eunice Miranda is a 47 year old female with history of GERD active smoker 1 pack/day, presented with complaint of shortness of breath gradually progressing since 2 weeks. She reports she usually has shortness of breath secondary to her panic attack but this was different than her usual episode. Shortness of breath was associated with dizziness and substernal chest discomfort. She denied any fever cold cough abdominal pain or urinary complaints. Last visit to PCP was 2 years ago. He denied any history of heart disease/asthma. He also reports smoking marijuana. In ER utox was positive for amphetamine and marijuana. Review of Systems Narrative: As per HPI Medications/Allergies Home Medications Medication Instructions Recorded Confirmed Last Taken Type omeprazole magnesium 20 mg 20 mg PO DAILY 06/28/19 01/10/23 06/28/19 History tablet,delayed release (Prilosec OTC) Allergies Allergy/AdvReac Type Severity Reaction Status Date / Time Penicillins Allergy Unresponsiv Verified 06/28/19 21:30 e PFSH Acute PFSH: Medical History (Updated 01/10/23 @ 21:30 by Thi Burnette MD) GERD (gastroesophageal reflux disease) No pertinent past medical history Social History Smoking and tobacco/nicotine status: current every day tobacco/nicotine user Vitals/I&O/Wt Last Vital Signs Temp 97.5 F L 01/10/23 17:10 Pulse 105 H 01/10/23 20:39 Resp 22 H 01/10/23 20:39 BP 125/86 01/10/23 20:39 Pulse Ox 93 01/10/23 20:39 O2 Del Method Room Air 01/10/23 19:38 Weight last 48 hrs Weight 49.895 kg Physical Exam Narrative: She is alert awake oriented x3 not in acute distress Chest clear to auscultation bilaterally decreased air entry in bilateral bases Cardiovascular normal heart sounds no murmurs Abdomen NAD Extremities 1+ pitting bilateral lower extremity edema Data 01/10/23 17:50 01/10/23 17:50 CXR: Radiologist's impression: IMPRESSION: Irregular opacities in the lung bases bilaterally. ? CTA Chest: Radiologist's impression: IMPRESSION: 1. ? No pulmonary embolus. 2. ? Cardiomegaly with bilateral pleural effusions and pulmonary vascular congestion consistent with CHF exacerbation. EKG 1: My Interpretation: Normal sinus rhythm Left axis deviation Left bundle branch block No acute ST-T changes EKG 2: My Interpretation: Normal sinus rhythm Left axis deviation Left bundle branch block No acute ST-T changes No new changes compared to EKG 1 A&P Assessment and plan (1) CHF exacerbation: 47 year old female with history of GERD active smoker 1 pack/day, presented with complaint of shortness of breath gradually progressing since 2 weeks associated with dizziness and chest discomfort since this morning and was found to have elevated troponins EKG consistent with left bundle branch block and BNP of 19,000, chest x-ray and CT chest consistent with bilateral pleural effusions cardiomegaly and pulmonary vascular congestion likely secondary to new onset con gestive heart failure. Will need further cardiac work-up to evaluate for new onset CHF Check 2D echo in a.m. Follow-up troponins Will give IV Lasix 40 mg every 8 hours for diuresis Give PO aspirin 324mg stat. Start aspirin 81 mg daily P.o. atorvastatin 20 mg daily, check lipid profile in a.m. Cardiology consult in a.m. DuoNeb every 6 hours as needed (2) GERD (gastroesophageal reflux disease): Will give IV Pepcid 20 mg twice a day for now (3) Smoker: Counseled and educated about risk of smoking and smoking cessation. Plan Subcutaneous Lovenox 30 mg daily for DVT prophylaxis She is full code for now. Attestations Medical Necessity Statement*: She might need more than 2 days of continued hospitalization for further cardiac work-up for new onset congestive heart failure and diuresis. Time Spent in Patient Care: 30 minutes Coding Level of Care Code Acute Code for Chg Fwd Diagnoses CHF exacerbation I50.9 GERD (gastroesophageal reflux disease) K21.9 Smoker F17.200 Time Spent (min) 30
[2023-01-10] MEDS: famotidine 20 mg/2 mL INJ IVP (22:41)
[2023-01-10] MEDS: atorvastatin 40 mg Tablet 20 MG PO (22:41)
[2023-01-10] MEDS: cyclobenzaprine 10 mg Tablet 5 MG PO (23:04)
[2023-01-10 23:40] LABS: Magnesium 1.8 mg/dL (1.7-2.3)
[2023-01-11] VITALS (39 sets, daily range): BP systolic 90–137; BP diastolic 62–78; PULSE 0–157; RESP 12–28; TEMP 36.2–37.3; O2SAT 88–97
--- NOTE | 2023-01-11 00:40 | ECG_ITS ---
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 Measurements Intervals [place] Rate: 110 P: 27 [place]: 168 QRS: -60 QRSD: 169 T: 99 QT: 399 QTc: 540 Interpretive Statements SINUS TACHYCARDIA LEFT ATRIAL ENLARGEMENT [-0.15mV P-WAVE IN V1/V2] LEFT AXIS DEVIATION [QRS AXIS < -30] LEFT BUNDLE BRANCH BLOCK [120+ ms QRS DURATION, 80+ ms Q/S IN V1/V2, 85+ ms R IN I/aVL/V5/V6] Compared to ECG 01/10/2023 20:12:45 No significant changes Electronically Signed On 01-11-2023 19:26:33 CDT by Ron Graham M.D. [id number]
[2023-01-11 00:53] LABS: Troponin 5 6HR Delta 126.8 ng/L (0-12)
[2023-01-11 00:54] LABS: Troponin 5 6HR 152.8 ng/L (0-10)
--- NOTE | 2023-01-11 01:01 | PC.NURSE ---
Spoke with regarding patients 6hr troponin. Received order to give one time dose of 60mg Lovenox. D/C the order for daily 30mg Lovenox.
--- NOTE | 2023-01-11 01:32 | PC.NURSE ---
Clarified with , patient received dose of 50mg Lovenox in ED. said hold the 60mg dose and recheck Trop with am labs. May need heparin gtt depending on am Trop.
[2023-01-11] MEDS: aspirin 325 mg Tablet PO (04:11)
[2023-01-11 05:20] LABS: Basophils % 0.4 %; Hematocrit 41.9 % (36-47); Lymphocytes # 0.9 10^3/uL (0.8-4.8); Lymphocytes % 19.7 %; Mean Corpuscular Hemoglobin 26.1 pg (27-33); Mean Platelet Volume 8.3 fL (7.4-10.4); Monocytes # 0.2 10^3/uL (0.2-0.9); Monocytes % 4.3 %; Neutrophils # 3.49 10^3/uL (1.8-7.7); Neutrophils % 75.4 %; Nucleated Red Blood Cells % 0 %; Platelet Count 498 10^3/cmm (157-399); Red Blood Count 4.99 10^6/uL (3.85-5.65); Red Cell Distribution Width 16.7 % (12.1-15.1); White Blood Count 4.63 10^3/uL (3.29-11.43)
[2023-01-11 05:32] LABS: Estmated Average Glucose 114; Hemoglobin A1C 5.6 % (4.0-6.0); Troponin T (5th) Once 281 ng/L (0-10)
[2023-01-11 05:36] LABS: Alanine Aminotransferase 35 U/L (0-33); Albumin Level 3.3 g/dL (3.5-5.2); Alkaline Phosphatase 105 U/L (35-105); Anion Gap 12.8 (5-19); Aspartate Amino Transferase 49 U/L (0-32); Blood Urea Nitrogen 13 mg/dL (6-20); Calcium 8.4 mg/dL (8.5-10.5); Carbon Dioxide 26 mmol/L (22-29); Chloride 98 mmol/L (98-107); Globulin 2.9 g/dL (1.3-4.6); Glomerular Filtration Rate 89.3 mL/min (90-130); Glucose 119 mg/dL (65-115); Magnesium 1.7 mg/dL (1.7-2.3); Osmolality Calculated 277 mOsm/kg (285-295); Phosphorus 4.8 mg/dL (2.5-4.5); Potassium 3.8 mmol/L (3.5-5.1); Sodium 133 mmol/L (136-145); Total Bilirubin 0.6 mg/dL (0.15-1.2); Total Protein 6.2 g/dL (6.6-8.7)
[2023-01-11 05:44] LABS: Chol HDL Ratio 3.87 mg/dL (0.0-4.40); Cholesterol 174 mg/dL (0-200); HDL Cholesterol 45 mg/dL (60-100); LDL Cholesterol Calculated 116 mg/dL (50-129); LDL HDL Ratio 2.58 RATIO (0.00-3.22); Triglycerides 66 mg/dL (0-150)
[2023-01-11] MEDS: heparin 5,000 unit/mL INJ 1 mL IV ×3 (06:28→21:58)
[2023-01-11] MEDS: heparin drip 25,000 UNIT/500 ML PREMIX 16 UNIT IV (06:30)
[2023-01-11] MEDS: famotidine 20 mg/2 mL INJ IVP ×2 (09:04→20:39)
[2023-01-11] MEDS: FUROsemide 10 mg/mL SDV 4mL 40 MG IVP ×3 (09:04→20:38)
[2023-01-11] MEDS: aspirin 81 mg EC Tablet PO (09:04)
--- NOTE | 2023-01-11 09:14 | USCV_ITS ---
Eunice Miranda Age: 47 Gender: F : 1975 Exam Date: 01/11/2023 09:44 Ordering Phys: Catalino Cote MD Technologist: Aniket Chahal [place]am [place] [facility] [place]: AMI BP: 122 / 69 HR: 110 Rhythm: Sinus Technical Quality: Adequate MEASUREMENTS (Male / Female) Normal Values 2D ECHO LVOT Diameter 2.1 cm LV Ejection Fraction MOD 2C 14.3 % LV Ejection Fraction 2C AL 15.2 % LA Diameter 4.2 cm LA Width 4.1 cm LA Height 6.3 cm RA Width 3.2 cm RA Height 4.8 cm Aorta at Sinotubular Diameter 2.1 cm IVC Diameter 1.7 cm M-MODE Aortic Annulus Diameter 2.4 cm LA Ao Ratio MM 1.8 MV E Point Septal Separation 3.3 cm DOPPLER AV Peak Velocity 113.7 cm/s LVOT Peak Velocity 67.0 cm/s AV Area Cont Eq vti 1.8 cm squared AV Area Cont Eq pk 2.0 cm squared MV E' Velocity 3.0 cm/s TR Peak Velocity 180.1 cm/s TR Peak Gradient 13.0 mmHg TR Mean Velocity 145.7 cm/s TR Mean Gradient 9.1 mmHg TR Velocity Time Integral 50.4 cm Right Atrial Pressure 3.0 mmHg Pulmonary Artery Systolic Pressu 16.0 mmHg PV Peak Velocity 99.3 cm/s RV Acceleration Time 0.1 s RV Ejection Time 0.2 s RV AcT/ET 0.3 FINDINGS Left Ventricle Markedly dilated left-ventricular to severe diffuse hypokinesia. LV ejection fraction of 15%. Thinned out penaloza. Right Ventricle Appears to be mildly dilated with a slightly diminished ejection fraction Right Atrium Mildly dilated Left Atrium Moderately increased left atrial size. Mitral Valve Mild-moderate mitral valve regurgitation. Aortic Valve No gross abnormalities noted Tricuspid Valve Mild tricuspid valve regurgitation. Pulmonic Valve Trace pulmonary valve regurgitation. Pericardium No pericardial effusion. Aorta Normal aortic annulus size. IVC Normal size with diminished respiratory rate CONCLUSIONS Markedly dilated left-ventricular to severe diffuse hypokinesia. LV ejection fraction of 15%. Thinned out penaloza. Moderately increased left atrial size. Mildly dilated right atrium Right ventricular appears to be mildly dilated with a slightly diminished ejection fraction Mild-moderate mitral valve regurgitation. Mild tricuspid valve regurgitation. Estimated pulmonary artery peak systolic pressure probably within normal limits-poor Doppler signals There is no pericardial effusion. No obvious intracardiac masses. No similar previous studies are available for comparison Features may suggest some form of nonischemic cardiomyopathy Dr Ron Graham MD [facility] (Electronically Signed) Final Date: 11 January 2023 10:20 S
[2023-01-11 13:37] LABS: Partial Thromboplastin Time 27.1 SECONDS (23.9-36.7)
--- NOTE | 2023-01-11 14:52 | P.CONIM_ITS ---
Providers/Reason For Consult Consulting Physician/Specialty*: ADRI Graham MD/cardiology Reason for Consult*: The patient will chest pain, irregular troponin T, left bundle branch block by EKG Requesting Physician: Dr. Cote Attending Physician: Catalino Cote History of Present Illness History of Present Illness Eunice Miranda is a 47 year old female is admitted to hospital through the emergency room, where she presented with complaints of progressive shortness of breath. She was found to have elevated troponin T. She also was found to have an abnormal EKG. Cardiology consult is requested for further cardiac evaluation recommendations. This patient is a very poor historian. According to her, she denies shortness of breath for the last more than 6 months. The shortness of breath has been gradually getting worse. For the last few days, she been getting short of breath even with minimal activities. She also is having some chest discomfort/tightness lately. Did not have any palpitation, dizziness or syncopal episodes. No fever or chills. No severe cough. For the last 3 to 4 months, she also has been noticing swelling of the lower extremities. She may have some amount of orthopnea as well. She has no previous history for coronary disease, myocardial infarction or congestive heart failure. No history for any cardiac arrhythmia. No history for hypertension, diabetes or dyslipidemia. He has a questionable history of reactive airway disease. Also questionable history of anxiety disorder. Been smoking marijuana for the last 30 years or so. She also uses methamphetamine off and on. Smokes 1 to 1/2 pack a day for the last 30+ years. Drinks over the weekend. No other substance abuse. She has not been to any physician for the last more than 2 years since that her primary care physician retired Review of Systems Narrative: CONSTITUTIONAL: No fever or chills. EYES: No blurring of vision or other visual disturbances lately. ENT: No hoarseness of voice, auditory disturbances or sore throat. CARDIOVASCULAR: As mentioned above. RESPIRATORY: Shortness of breath as mentioned above GASTROINTESTINAL: No hematemesis or melena. GENITOURINARY: No dysuria or hematuria. INTEGUMENTARY: No skin rashes or history of skin cancer. NEURO: No transient ischemic attacks or amaurosis. PSYCHIATRIC:? Anxiety disorder HEMATOLOGIC: No bleeding disorders or significant anemia. ENDOCRINE: No history of polyuria or polydipsia. MUSCULOSKELETAL: Bilateral lower extremity swelling ALLERGY/IMMUNOLOGY: As mentioned above. Medications/Allergies Home Medications Medication Instructions Recorded Confirmed Last Taken Type omeprazole magnesium 20 mg 20 mg PO DAILY 06/28/19 01/10/23 06/28/19 History tablet,delayed release (Prilosec OTC) Allergies Allergy/AdvReac Type Severity Reaction Status Date / Time Penicillins Allergy Unresponsiv Verified 06/28/19 21:30 e Current Medications Generic Name Dose Route Start Last Admin Trade Name Freq PRN Reason Stop Dose Admin Aspirin 81 mg 01/11/23 09:00 01/11/23 09:04 Aspirin 81 Mg Ec Tablet PO 81 mg DAILY CHANNING Administration Atorvastatin Calcium 20 mg 01/10/23 21:45 01/10/23 22:41 Atorvastatin 40 Mg Tablet PO 20 mg BEDTIME CHANNING Administration Cyclobenzaprine HCl 5 mg 01/10/23 22:47 01/10/23 23:04 Cyclobenzaprine 10 Mg Tablet PO 5 mg ONCE PRN Administration MUSCLE SPASMS Famotidine 20 mg 01/10/23 21:45 01/11/23 09:04 Famotidine 20 Mg/2 Ml Inj IVP 20 mg Q12H CHNANING Administration Furosemide 40 mg 01/11/23 09:00 01/11/23 09:04 Furosemide 10 Mg/Ml Sdv 4ml IVP 40 mg TID CHANNING Administration Heparin Sodium (Porcine) 0 unit 01/11/23 05:45 01/11/23 06:28 Heparin 5,000 Unit/Ml Inj 1 Ml IV 2,800 unit PRN PRN Administration Heparin weight-base protocol Protocol Heparin Sodium/Sodium Chloride 25,000 unit in 500 mls @ 0 mls/hr 01/11/23 05:45 01/11/23 06:30 Heparin Drip IV 14.36 unit/kg/hr .Q0M CHANNING 16 mls/hr Administration Protocol Per Protocol PFSH Acute PFSH: Medical History GERD (gastroesophageal reflux disease) No pertinent past medical history Social History Smoking and tobacco/nicotine status: current every day tobacco/nicotine user Vitals/I&O/Wt Last Vital Signs Temp 99.1 F 01/11/23 13:29 Pulse 117 H 01/11/23 13:29 Resp 22 H 01/11/23 13:29 BP 90/74 01/11/23 13:29 Pulse Ox 97 01/11/23 13:29 O2 Del Method Nasal Cannula 01/11/23 04:00 O2 Flow Rate 2 01/11/23 04:00 01/10/23 01/11/23 01/11/23 22:59 06:59 14:59 Intake Total 60 / 60 240 / 300 Output Total 400 / 400 900 / 900 Balance 60 / 60 -160 / -100 -900 / -900 Weight last 48 hrs Weight 122 lb 12.8 oz Weight 110 lb Physical Exam Narrative: GENERAL: The patient is alert and oriented times three. Not in any acute distress. HEENT: No significant pallor, icterus or lymphadenopathy.Oral cavity: There are no mucous membrane lesions. NECK: Trachea appears to be central. No masses noted. No JVD or thyromegaly appreciated. RESPIRATORY: Chest is symmetrical. No intercostals muscle retraction or any accessory muscle activation. There is no chest wall tenderness. Breath sounds are heard bilaterally. No rales or rhonchi heard. No evidence of any consolidation. BREASTS: Deferred. HEART: Patient has a healing apical impulse. First Significant heart sounds are normal. She has a soft S3. Short systolic murmur in the left sternal border. No diastolic murmurs. No pericardial rub ABDOMEN: No vessel pulsations or distention. No tenderness. No organomegaly appreciated. Bowel sounds are normally heard. : Deferred. RECTAL: Deferred. LYMPHATIC: No lymphadenopathy noted in the neck. EXTREMITIES: 1-2+ edema both lower extremities with no cyanosis MUSCULOSKELETAL: No acute joint deformities or swelling SKIN: There are no significant rashes or ecchymosis NEUROPSYCHIATRIC: The patient is alert and oriented x3. Appears to be in a good mood. No tremors or rigidity noted. Data 01/11/23 04:26 01/11/23 04:26 Micro: Laboratory Last Values WBC 4.63 10^3/uL (3.29-11.43) 01/11/23 04:26 RBC 4.99 10^6/uL (3.85-5.65) 01/11/23 04:26 Hgb 13.00 g/dL (11.27-16.99) 01/11/23 04:26 Hct 41.9 % (36-47) 01/11/23 04:26 MCV 84.0 fl (85-98) L 01/11/23 04:26 MCH 26.1 pg (27-33) L 01/11/23 04:26 MCHC 31.0 g/dL (30-55) 01/11/23 04:26 RDW 16.7 % (12.1-15.1) H 01/11/23 04:26 Plt Count 498 10^3/cmm (157-399) H 01/11/23 04:26 MPV 8.3 fL (7.4-10.4) 01/11/23 04:26 Neut % (Auto) 75.4 % 01/11/23 04:26 Lymph % (Auto) 19.7 % 01/11/23 04:26 [place] % (Auto) 4.3 % 01/11/23 04:26 Eos % (Auto) 0.0 % 01/11/23 04:26 Baso % (Auto) 0.4 % 01/11/23 04:26 Neut # (Auto) 3.49 10^3/uL (1.8-7.7) 01/11/23 04:26 Lymph # (Auto) 0.9 10^3/uL (0.8-4.8) 01/11/23 04:26 [place] # (Auto) 0.2 10^3/uL (0.2-0.9) 01/11/23 04:26 Eos # (Auto) 0.0 10^3/uL (0.0-0.8) 01/11/23 04:26 Baso # (Auto) 0.0 10^3/uL (0.0-0.1) 01/11/23 04:26 Nucleated RBC % (auto) 0 % 01/11/23 04:26 Nucleated RBCs # 0.0 /100WBC 01/11/23 04:26 APTT 27.1 SECONDS (23.9-36.7) 01/11/23 12:58 Sodium 133 mmol/L (136-145) L 01/11/23 04:26 Potassium 3.8 mmol/L (3.5-5.1) 01/11/23 04:26 Chloride 98 mmol/L (98-107) 01/11/23 04:26 Carbon Dioxide 26 mmol/L (22-29) 01/11/23 04:26 Anion Gap 12.8 (5-19) 01/11/23 04:26 BUN 13 mg/dL (6-20) 01/11/23 04:26 Creatinine 0.7 mg/dL (0.5-0.9) 01/11/23 04:26 GFR Calculation 89.3 mL/min (90-130) L 01/11/23 04:26 Glucose 119 mg/dL (65-115) H 01/11/23 04:26 Estimat Average Glucose 114 01/11/23 04:26 Hemoglobin A1c 5.6 % (4.0-6.0) 01/11/23 04:26 Calculated Osmolality 277 mOsm/kg (285-295) L 01/11/23 04:26 Calcium 8.4 mg/dL (8.5-10.5) L 01/11/23 04:26 Phosphorus 4.8 mg/dL (2.5-4.5) H 01/11/23 04:26 Magnesium 1.7 mg/dL (1.7-2.3) 01/11/23 04:26 Total Bilirubin 0.6 mg/dL (0.15-1.2) 01/11/23 04:26 AST 49 U/L (0-32) H 01/11/23 04:26 ALT 35 U/L (0-33) H 01/11/23 04:26 Alkaline Phosphatase 105 U/L (35-105) 01/11/23 04:26 Troponin T Gen 5 ng/L 281 ng/L (0-10) H* 01/11/23 04:26 Troponin T Baseline 26 ng/L (0-10) H 01/10/23 17:50 Troponin T 120 Minute 45.79 ng/L (0-10) H 01/10/23 19:57 Delta Troponin T 19.79 ABS# (0-10) H* 01/10/23 19:57 Troponin T Hi Sens 6Hr 152.8 ng/L (0-10) H 01/11/23 00:20 Troponin T Hi Sens 6Hr Delta 126.8 ng/L (0-12) H* 01/11/23 00:20 NT-Pro-B Natriuret Pep 57156 pg/mL (0-125) H 01/11/23 04:26 Total Protein 6.2 g/dL (6.6-8.7) L 01/11/23 04:26 Albumin 3.3 g/dL (3.5-5.2) L 01/11/23 04:26 Globulin 2.9 g/dL (1.3-4.6) 01/11/23 04:26 Triglycerides 66 mg/dL (0-150) 01/11/23 04:26 Cholesterol 174 mg/dL (0-200) 01/11/23 04:26 LDL Cholesterol, Calc 116 mg/dL (50-129) 01/11/23 04:26 HDL Cholesterol 45 mg/dL (60-100) L 01/11/23 04:26 LDL/HDL Ratio 2.58 RATIO (0.00-3.22) 01/11/23 04:26 Cholesterol/HDL Ratio 3.87 mg/dL (0.0-4.40) 01/11/23 04:26 Coronavirus 229E (PCR) Not detected (NOT DETECT) 01/10/23 18:30 SARS-CoV-2 (PCR) Not detected (NOT DETECT) 01/10/23 18:30 Other data: The EKG showed Sinus tachycardia with a rate of 110 bpm. Left bundle branch block pattern. Left atrial enlargement. Echocardiogram from today 01/11/2023 markedly dilated left-ventricular to severe diffuse hypokinesia.? ?LV ejection fraction of 15%.? Thinned out penaloza. ?Moderately increased left atrial size. ?Mildly dilated right atrium ?Right ventricular appears to be mildly dilated with a slightly ?diminished ejection fraction ?Mild-moderate mitral valve regurgitation. ?Mild tricuspid valve regurgitation. ?Estimated pulmonary artery peak systolic pressure probably ?within normal limits-poor Doppler signals ?There is no pericardial effusion. ?No obvious intracardiac masses. ?No similar previous studies are available for comparison ?Features may suggest some form of nonischemic cardiomyopathy A&P Assessment and plan (1) Acute on chronic systolic heart failure: Patient apparently has been having shortness of breath for the last more than 6 months. She seems to have features of chronic heart failure with an acute exacerbation. Currently she seems to be stable hemodynamically. She will be carefully treated with diuretics. I may start her on a low-dose of ARB, spironolactone 25 mg p.o. daily and Jardiance 10 mg p.o. daily. If the blood pressure tolerates may is started on low-dose of beta-warren as well based on the clinical progress, further recommendations will be made. (2) Cardiomyopathy: Etiologies of cardiomyopathy is not clear. Patient may require a cardiac catheterization, to further evaluate her coronary status as well as the hemodynamics and decide on further management. It is very possible that she may have a nonischemic form of cardiomyopathy. (3) Hypotension: Systolic blood pressure is in the low normal side. If the patient is able to tolerate the ARB, may start her on a low-dose of beta-warren as well. (4) LBBB (left bundle branch block): Possibility of underlying coronary artery disease cannot be excluded but my clinical suspicion may be low. (5) Elevated troponin: Most likely from type II VT. May continue on the current measures for the time being. (6) GERD (gastroesophageal reflux disease): May continue on the current treatment measures. Plan Based on the patient's clinical progress and the results of the above, further recommendations will be made. Thank you for the opportunity to evaluate this patient and make these recommendations Consult Attestations Medical Necessity Statement: Patient requires continued hospital stay for close monitoring and further management Coding Level of Care Code 27054 Diagnoses Acute on chronic systolic heart failure I50.23 Cardiomyopathy I42.9 Hypotension I95.9 LBBB (left bundle branch block) I44.7 Elevated troponin R79.89 GERD (gastroesophageal reflux disease) K21.9
[2023-01-11] MEDS: spironolactone 25 mg Tablet PO (17:51)
--- NOTE | 2023-01-11 19:24 | P.PN_ITS ---
Subjective Subjective: History of chest pain apart from slight heaviness when she takes a deep breath. Overall doing better. Later on having nicotine cravings. Does not go out to smoke a cigarette outside. Still to have nicotine patch, lozenges. Vitals/I&O/Wt Last Vital Signs Temp 99.1 F 01/11/23 13:29 Pulse 104 H 01/11/23 16:00 Resp 26 H 01/11/23 16:00 BP 101/62 01/11/23 16:00 Pulse Ox 93 01/11/23 14:00 O2 Del Method Nasal Cannula 01/11/23 04:00 O2 Flow Rate 2 01/11/23 04:00 01/11/23 01/11/23 01/11/23 06:59 14:59 22:59 Intake Total 240 / 300 151.467 / 151.467 Output Total 400 / 400 900 / 900 Balance -160 / -100 -900 / -900 151.467 / -748.533 Weight last 48 hrs Weight 55.701 kg Weight 49.895 kg Physical Exam Const: COMMON NORMALS: patient oriented x3 and alert GENERAL APPEARANCE: cooperative ORIENTATION/CONSCIOUSNESS: Yes awake HENMT: COMMON NORMALS: oropharynx normal Neck/C-Spine: COMMON NORMALS: no JVD Resp: COMMON NORMALS: normal respiratory effort and clear to auscultation bilaterally AUSCULTATION: clear to auscultation bilaterally Cardio: COMMON NORMALS: no JVD, regular rhythm, S1 normal heart sound present, S2 normal heart sound present and No murmurs present (Cardio) RHYTHM: regular rhythm HEART SOUNDS: S1 normal heart sound present and S2 normal heart sound present GI: COMMON NORMALS: Normal to inspection, nondistended, normoactive bowel sounds present, Soft to palpation and non-tender PALPATION: Yes Soft to palpation Extremity: COMMON NORMALS: no joint enlargement and no pedal edema Neuro: COMMON NORMALS: patient oriented x3 and moves all extremities SENSORIUM/ORIENTATION: Yes alert Skin: COMMON NORMALS: no rashes or lesions noted GENERAL SKIN EXAM: no graham hes or lesions noted Data 01/11/23 04:26 01/11/23 04:26 A&P Assessment and plan (1) Elevated troponin: Reviewed troponin series, troponin with elevation To 281 this morning. Reviewed EKG. She is free of chest pain apart from some heaviness with deep inspiration. No PE noted on CTA. Suspect secondary to congestive changes with decompensated CHF. Unclear timing with regards to left bundle branch block. I do not see prior EKGs, BBB persistent throughout hospital stay. No chest pain on presentation. Discussed with cardiology. Requested cardiology consultation. Requested stat TTE. Noted cardiomyopathy, severely diminished EF 15%. Reported history of known cardiomyopathy for possibly about 6 months. On heparin drip, continue. Monitor APTT, risk of bleeding. Continue aspirin. Cardiology also added spironolactone, losartan. Further discussed smoking cessation with her, encouraged optimization of cardiovascular risk factors. Cardiology considering coronary angiography once volume status optimized to further assess for possibility of ischemic cardiomyopathy versus nonischemic. On review of prior UDS amphetamine noted positive back in 2019. (2) CHF exacerbation: Decompensated systolic and diastolic CHF. Noted cardiomyopathy on review of echo, severely diminished EF 15%. With new hypoxia. Per discussion with cardiology has history of cardiomyopathy possibly for about 6 months, when asked about CHF on discussion with me denies having history of CHF. Appreciate cardiology consultation. Continue Lasix. Spironolactone and losartan added. Continue statin. Further assessment for etiology as above. Obtained, reviewed magnesium level. 1.7. Replacement requested. Reviewed potassium, renal function. Repeat chemistry requested. Repeat magnesium. With IV diuresis at risk of electrolyte deficiency. Arrhythmia. Monitor on telemetry. (3) GERD (gastroesophageal reflux disease): IV Pepcid 20 mg twice a day for now (4) Smoker: Spent 4 minutes on smoking cessation, discussed with her smoking abstinence, however, was found going outside to smoke. Did request for nicotine replacement, added. Continue to encourage abstinence. (5) LBBB (left bundle branch block): Unknown timing of LBBB but noted on all EKGs this visit. Did not find EKGs in [employer]. (6) Hypotension: (7) Cardiomyopathy: Optimization of CHF as above. Additional assessment of etiology as above. Consider LifeVest prior to discharge. Plan Depressed mood: Become somewhat tearful when discussing results of cardiac studies, suspected NSTEMI. Seems may have been under some stress recently. Please consider revisiting with her again. Subcutaneous Lovenox 30 mg daily for DVT prophylaxis Attestations Medical Necessity Statement*: Continue admission for assessment management of decompensated systolic and diastolic CHF with severely reduced ejection fraction of 15%, suspected NSTEMI, on heparin drip. Additional medical problems as above. Diagnoses Elevated troponin R79.89 CHF exacerbation I50.9 GERD (gastroesophageal reflux disease) K21.9 Smoker F17.200 LBBB (left bundle branch block) I44.7 Hypotension I95.9 Cardiomyopathy I42.9
[2023-01-11] MEDS: ALPRAZolam 0.5 mg Tablet 0.25 MG PO (20:37)
[2023-01-11] MEDS: atorvastatin 40 mg Tablet 20 MG PO (20:38)
[2023-01-11] MEDS: magnesium sulfate premix 1 GM/100 ML PIGGYBACK IV (20:38)
[2023-01-11 21:47] LABS: Partial Thromboplastin Time 32.7 SECONDS (23.9-36.7)
[2023-01-12] VITALS (10 sets, daily range): BP systolic 86–113; BP diastolic 56–70; PULSE 56–110; RESP 16–24; TEMP 36.4–36.5; O2SAT 93–96
[2023-01-12 05:20] LABS: Basophils % 0.4 %; Eosinophils # 0.1 10^3/uL (0.0-0.8); Eosinophils % 1.1 %; Hematocrit 41.8 % (36-47); Lymphocytes # 2.7 10^3/uL (0.8-4.8); Lymphocytes % 37.7 %; Mean Corpuscular HGB Conc 30.9 g/dL (30-55); Mean Corpuscular Volume 84.3 fl (85-98); Mean Platelet Volume 8.4 fL (7.4-10.4); Monocytes # 0.8 10^3/uL (0.2-0.9); Monocytes % 10.6 %; Neutrophils # 3.62 10^3/uL (1.8-7.7); Neutrophils % 50.1 %; Nucleated Red Blood Cells % 0 %; Platelet Count 524 10^3/cmm (157-399); Red Blood Count 4.96 10^6/uL (3.85-5.65); Red Cell Distribution Width 16.7 % (12.1-15.1); White Blood Count 7.24 10^3/uL (3.29-11.43)
[2023-01-12 05:35] LABS: Partial Thromboplastin Time 46.5 SECONDS (23.9-36.7)
[2023-01-12 05:40] LABS: Albumin Level 3.3 g/dL (3.5-5.2); Alkaline Phosphatase 101 U/L (35-105); Aspartate Amino Transferase 47 U/L (0-32); Blood Urea Nitrogen 27 mg/dL (6-20); Calcium 8.8 mg/dL (8.5-10.5); Carbon Dioxide 33 mmol/L (22-29); Chloride 99 mmol/L (98-107); Globulin 2.8 g/dL (1.3-4.6); Glomerular Filtration Rate 66.8 mL/min (90-130); Glucose 94 mg/dL (65-115); Osmolality Calculated 297 mOsm/kg (285-295); Sodium 141 mmol/L (136-145); Total Bilirubin 0.3 mg/dL (0.15-1.2); Total Protein 6.1 g/dL (6.6-8.7)
[2023-01-12 06:03] LABS: Alanine Aminotransferase 31 U/L (0-33)
[2023-01-12] MEDS: heparin 5,000 unit/mL INJ 1 mL IV ×2 (06:40→21:41)
[2023-01-12] MEDS: losartan 50 mg Tablet 25 MG PO (08:46)
[2023-01-12] MEDS: aspirin 81 mg EC Tablet PO (08:46)
[2023-01-12] MEDS: spironolactone 25 mg Tablet PO (08:48)
[2023-01-12] MEDS: FUROsemide 10 mg/mL SDV 4mL 40 MG IVP (08:50)
[2023-01-12 09:14] LABS: Thyroid Stimulating Hormone 1.27 uIU/mL (0.27-4.20); Vitamin B12 370 pg/mL (232-1245)
[2023-01-12] MEDS: famotidine 20 mg/2 mL INJ IVP ×2 (10:57→21:40)
[2023-01-12] MEDS: nicotine 21 mg Patch 1 PATCH TRANSDERMA (10:57)
[2023-01-12] MEDS: heparin drip 25,000 UNIT/500 ML PREMIX 23 UNIT IV (10:58)
--- NOTE | 2023-01-12 11:18 | PC.NURSE ---
Provider was notified of othostatic blood pressures and ordered metoprolol 12.5 BID, first dose now.
[2023-01-12] MEDS: metoprolol tartrate 25 mg Tablet 12.5 MG PO ×2 (11:25→21:41)
[2023-01-12 12:15] LABS: Partial Thromboplastin Time 41.3 SECONDS (23.9-36.7)
[2023-01-12 12:19] LABS: Blood Urea Nitrogen 25 mg/dL (6-20); Calcium 8.7 mg/dL (8.5-10.5); Carbon Dioxide 30 mmol/L (22-29); Chloride 99 mmol/L (98-107); Glomerular Filtration Rate 76.6 mL/min (90-130); Glucose 90 mg/dL (65-115); Osmolality Calculated 290 mOsm/kg (285-295); Sodium 138 mmol/L (136-145)
--- NOTE | 2023-01-12 13:58 | P.PN_ITS ---
Subjective Subjective: Hospital course, labs appreciated. Examination patient laying comfortably in bed with family at bedside with head of the bed elevated by 10 degrees saturating well on room air. As per nursing staff patient having occasional episodes of tachycardia without any symptoms. Also complaining of mild dizziness while sitting up which resolved on laying down. Patient herself denies any chest pain. Blood work appreciated for a stable CBC, CMP showing creatinine of 0.8, stable potassium. Document urine output of around 3 L yesterday, overall patient is 1800 cc negative. Vitals/I&O/Wt Last Vital Signs Temp 97.7 F 01/12/23 04:00 Pulse 102 H 01/12/23 08:00 Resp 24 H 01/12/23 08:00 BP 90/60 01/12/23 10:55 Pulse Ox 94 01/12/23 08:00 O2 Del Method Room Air 01/12/23 08:00 O2 Flow Rate 2 01/11/23 04:00 01/11/23 01/12/23 01/12/23 22:59 06:59 14:59 Intake Total 844.200 / 844.200 186.267 / 1030.467 331.250 / 331.250 Output Total 1800 / 2700 400 / 3100 Balance -955.800 / -1855.800 -213.733 / -2069.533 331.250 / 331.250 Weight last 48 hrs Weight 53.127 kg Weight 55.701 kg Weight 49.895 kg Physical Exam Const: COMMON NORMALS: patient oriented x3 and alert GENERAL APPEARANCE: cooperative ORIENTATION/CONSCIOUSNESS: Yes awake HENMT: COMMON NORMALS: oropharynx normal Neck/C-Spine: COMMON NORMALS: no JVD Resp: COMMON NORMALS: normal respiratory effort and clear to auscultation bi laterally AUSCULTATION: clear to auscultation bilaterally Cardio: COMMON NORMALS: no JVD, regular rhythm, S1 normal heart sound present, S2 normal heart sound present and No murmurs present (Cardio) RHYTHM: regular rhythm HEART SOUNDS: S1 normal heart sound present and S2 normal heart sound present GI: COMMON NORMALS: Normal to inspection, nondistended, normoactive bowel sounds present, Soft to palpation and non-tender PALPATION: Yes Soft to palpation Extremity: COMMON NORMALS: no joint enlargement and no pedal edema Neuro: COMMON NORMALS: patient oriented x3 and moves all extremities SENSORIUM/ORIENTATION: Yes alert Skin: COMMON NORMALS: no rashes or lesions noted GENERAL SKIN EXAM: no rashes or lesions noted Data 01/12/23 04:11 01/12/23 11:55 A&P Assessment and plan (1) Cardiomyopathy: Questionable mildly dilated LV with severe diffuse hypokinesia of LV with EF of 15%, increased LA size, mildly dilated RA with RV dilatation and slightly diminished function, mild to moderate MR, mild TR. High likelihood of nonischemic cardiomyopathy though patient still needs further work-up to rule out ischemic cardiomyopathy. Cardiology on board. Plan for cardiac catheterization for further work-up once patient is more euvolemic. Patient will most likely need LifeVest at discharge. (2) CHF exacerbation: Acute systolic and diastolic congestive heart failure. Strict input output charting. Monitor electrolytes. Target potassium around 4, magnesium around 2. IV Lasix 40 mg twice daily. Fluid restriction up to 1500 cc. Continue with losartan 25 mg daily, spironolactone 12.5 mg daily. Add low-dose metoprolol at 12.5 mg twice daily. We will continue with guideline directed heart failure therapy. 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 Appreciate echocardiogram. Continue with heparin drip for now. Further ACS work-up as per cardiology. Continue with aspirin, statin. Appreciate A1c, lipid panel. (4) GERD (gastroesophageal reflux disease): IV Pepcid 20 mg twice a day for now (5) Smoker: Discussed in detail about smoking cessation. Nicotine patch as needed. (6) LBBB (left bundle branch block): Old versus new. No records from past. (7) Hypotension: (8) Amphetamine abuse: Urine drug screen past positive for amphetamines. Not done on current admissions. As per family members was recently possibly incarcerated for amphetamine possession though patient herself denies recent use. Plan Heparin drip-DVT prophylaxis Cardiac diet, n.p.o. after midnight for possible cardiac catheterization Famotidine for PUD prophylaxis. Attestations Medical Necessity Statement*: Requires further hospitalization for evaluation and management of cardiomyopathy while ischemic etiology is ruled out, congestive heart failure Diagnoses Cardiomyopathy I42.9 CHF exacerbation I50.43 Heart failure type: combined systolic and diastolic Elevated troponin R79.89 GERD (gastroesophageal reflux disease) K21.9 Smoker F17.200 LBBB (left bundle branch block) I44.7 Hypotension I95.9 Amphetamine abuse F15.10
[2023-01-12 15:15] LABS: Iron 20 ug/dL (37-145); Percent Saturation 4.9 % (20-50); Total Iron Binding Capacity 402 mcg/dl; Unsaturated Iron Binding 382 ug/dL (112-347)
--- NOTE | 2023-01-12 17:47 | P.PN_ITS ---
Subjective Subjective: Patient is feeling better. The shortness of breath is improving. Blood pressure seems to be stable. No chest pain. No fever, chills or cough Medications: Medication Review Details: Current Medications Alprazolam (Alprazolam 0.5 Mg Tablet) 0.25 mg PO BID PRN PRN Reason: ANXIETY Stop: 01/13/23 17:04 Last Admin: 01/11/23 20:37 Dose: 0.25 mg Aspirin (Aspirin 81 Mg Ec Tablet) 81 mg PO DAILY [facility] Last Admin: 01/12/23 08:46 Dose: 81 mg Atorvastatin Calcium (Atorvastatin 40 Mg Tablet) 20 mg PO BEDTIME [facility] Last Admin: 01/11/23 20:38 Dose: 20 mg Cyclobenzaprine HCl (Cyclobenzaprine 10 Mg Tablet) 5 mg PO ONCE PRN PRN Reason: MUSCLE SPASMS Last Admin: 01/10/23 23:04 Dose: 5 mg Famotidine (Famotidine 20 Mg/2 Ml Inj) 20 mg IVP Q12H [facility] Last Admin: 01/12/23 10:57 Dose: 20 mg Heparin Sodium (Porcine) (Heparin 5,000 Unit/Ml Inj 1 Ml) 0 unit IV PRN PRN; Protocol PRN Reason: Heparin weight-base protocol Last Admin: 01/12/23 06:40 Dose: 1,100 unit Heparin Sodium/Sodium Chloride (Heparin Drip) 25,000 unit in 500 mls @ 0 mls/hr IV .Q0M [facility]; Protocol Last Titration: 01/12/23 13:39 Dose: 25 unit/kg/hr, 27.85 mls/hr Losartan Potassium (Losartan 50 Mg Tablet) 25 mg PO DAILY [facility] Last Admin: 01/12/23 08:46 Dose: 25 mg Metoprolol Tartrate (Metoprolol Tartrate 25 Mg Tablet) 12.5 mg PO BID@0900,2100 [facility] Last Admin: 01/12/23 11:25 Dose: 12.5 mg Nicotine (Nicotine 21 Mg Patch) 1 patch TRANSDERMA DAILY [facility] Last Admin: 01/12/23 10:57 Dose: 1 patch Spironolactone (Spironolactone 25 Mg Tablet) 12.5 mg PO DAILY [facility] Vitals/I&O/Wt Last Vital Signs Temp 97.7 F 01/12/23 04:00 Pulse 107 H 01/12/23 16:00 Resp 20 H 01/12/23 16:00 BP 101/62 01/12/23 16:00 Pulse Ox 96 01/12/23 16:00 O2 Del Method Room Air 01/12/23 16:00 O2 Flow Rate 2 01/11/23 04:00 01/12/23 01/12/23 01/12/23 06:59 14:59 22:59 Intake Total 186.267 / 1030.467 331.250 / 331.250 Output Total 400 / 3100 Balance -213.733 / -2069.533 331.250 / 331.250 Weight last 48 hrs Weight 117 lb 2 oz Weight 122 lb 12.8 oz Physical Exam Narrative: GENERAL: The patient is alert and oriented times three. Not in any acute distress. HEENT: No significant pallor, icterus or lymphadenopathy.Oral cavity: There are no mucous membrane lesions. NECK: Trachea appears to be central. No masses noted. No JVD or thyromegaly appreciated. RESPIRATORY: Chest is symmetrical. No intercostals muscle retraction or any accessory muscle activation. There is no chest wall tenderness. Breath sounds are heard bilaterally. No rales or rhonchi heard. No evidence of any consolid ation. BREASTS: Deferred. HEART: Patient has a healing apical impulse. First Significant heart sounds are normal. She has a soft S3. Short systolic murmur in the left sternal border. No diastolic murmurs. No pericardial rub ABDOMEN: No vessel pulsations or distention. No tenderness. No organomegaly appreciated. Bowel sounds are normally heard. : Deferred. RECTAL: Deferred. LYMPHATIC: No lymphadenopathy noted in the neck. EXTREMITIES: 1-2+ edema both lower extremities with no cyanosis MUSCULOSKELETAL: No acute joint deformities or swelling SKIN: There are no significant rashes or ecchymosis NEUROPSYCHIATRIC: The patient is alert and oriented x3. Appears to be in a good mood. No tremors or rigidity noted. Data 01/12/23 04:11 01/12/23 11:55 Other Labs: Laboratory Last Values WBC 7.24 10^3/uL (3.29-11.43) 01/12/23 04:11 RBC 4.96 10^6/uL (3.85-5.65) 01/12/23 04:11 Hgb 12.90 g/dL (11.27-16.99) 01/12/23 04:11 Hct 41.8 % (36-47) 01/12/23 04:11 MCV 84.3 fl (85-98) L 01/12/23 04:11 MCH 26.0 pg (27-33) L 01/12/23 04:11 MCHC 30.9 g/dL (30-55) 01/12/23 04:11 RDW 16.7 % (12.1-15.1) H 01/12/23 04:11 Plt Count 524 10^3/cmm (157-399) H 01/12/23 04:11 MPV 8.4 fL (7.4-10.4) 01/12/23 04:11 Neut % (Auto) 50.1 % 01/12/23 04:11 Lymph % (Auto) 37.7 % 01/12/23 04:11 [place] % (Auto) 10.6 % 01/12/23 04:11 Eos % (Auto) 1.1 % 01/12/23 04:11 Baso % (Auto) 0.4 % 01/12/23 04:11 Neut # (Auto) 3.62 10^3/uL (1.8-7.7) 01/12/23 04:11 Lymph # (Auto) 2.7 10^3/uL (0.8-4.8) 01/12/23 04:11 [place] # (Auto) 0.8 10^3/uL (0.2-0.9) 01/12/23 04:11 Eos # (Auto) 0.1 10^3/uL (0.0-0.8) 01/12/23 04:11 Baso # (Auto) 0.0 10^3/uL (0.0-0.1) 01/12/23 04:11 Nucleated RBC % (auto) 0 % 01/12/23 04:11 Nucleated RBCs # 0.0 /100WBC 01/12/23 04:11 APTT 41.3 SECONDS (23.9-36.7) H 01/12/23 11:55 Sodium 138 mmol/L (136-145) 01/12/23 11:55 Potassium 4.0 mmol/L (3.5-5.1) 01/12/23 11:55 Chloride 99 mmol/L (98-107) 01/12/23 11:55 Carbon Dioxide 30 mmol/L (22-29) H 01/12/23 11:55 Anion Gap 13.0 (5-19) 01/12/23 11:55 BUN 25 mg/dL (6-20) H 01/12/23 11:55 Creatinine 0.8 mg/dL (0.5-0.9) 01/12/23 11:55 GFR Calculation 76.6 mL/min (90-130) L 01/12/23 11:55 Glucose 90 mg/dL (65-115) 01/12/23 11:55 Estimat Average Glucose 114 01/11/23 04:26 Hemoglobin A1c 5.6 % (4.0-6.0) 01/11/23 04:26 Calculated Osmolality 290 mOsm/kg (285-295) 01/12/23 11:55 Calcium 8.7 mg/dL (8.5-10.5) 01/12/23 11:55 Phosphorus 4.8 mg/dL (2.5-4.5) H 01/11/23 04:26 Magnesium 2.0 mg/dL (1.7-2.3) 01/12/23 04:11 Iron 20 ug/dL (37-145) L 01/12/23 11:55 TIBC 402 mcg/dl 01/12/23 11:55 % Saturation 4.9 % (20-50) L 01/12/23 11:55 Unsat Iron Binding 382 ug/dL (112-347) H 01/12/23 11:55 Total Bilirubin 0.3 mg/dL (0.15-1.2) 01/12/23 04:11 AST 47 U/L (0-32) H 01/12/23 04:11 ALT 31 U/L (0-33) 01/12/23 04:11 Alkaline Phosphatase 101 U/L (35-105) 01/12/23 04:11 Troponin T Gen 5 ng/L 281 ng/L (0-10) H* 01/11/23 04:26 Troponin T Baseline 26 ng/L (0-10) H 01/10/23 17:50 Troponin T 120 Minute 45.79 ng/L (0-10) H 01/10/23 19:57 Delta Troponin T 19.79 ABS# (0-10) H* 01/10/23 19:57 Troponin T Hi Sens 6Hr 152.8 ng/L (0-10) H 01/11/23 00:20 Troponin T Hi Sens 6Hr Delta 126.8 ng/L (0-12) H* 01/11/23 00:20 NT-Pro-B Natriuret Pep 71783 pg/mL (0-125) H 01/11/23 04:26 Total Protein 6.1 g/dL (6.6-8.7) L 01/12/23 04:11 Albumin 3.3 g/dL (3.5-5.2) L 01/12/23 04:11 Globulin 2.8 g/dL (1.3-4.6) 01/12/23 04:11 Triglycerides 66 mg/dL (0-150) 01/11/23 04:26 Cholesterol 174 mg/dL (0-200) 01/11/23 04:26 LDL Cholesterol, Calc 116 mg/dL (50-129) 01/11/23 04:26 HDL Cholesterol 45 mg/dL (60-100) L 01/11/23 04:26 LDL/HDL Ratio 2.58 RATIO (0.00-3.22) 01/11/23 04:26 Cholesterol/HDL Ratio 3.87 mg/dL (0.0-4.40) 01/11/23 04:26 Vitamin B12 370 pg/mL (232-1245) 01/12/23 04:11 TSH 1.27 uIU/mL (0.27-4.20) 01/12/23 04:11 Coronavirus 229E (PCR) Not detected (NOT DETECT) 01/10/23 18:30 SARS-CoV-2 (PCR) Not detected (NOT DETECT) 01/10/23 18:30 A&P Assessment and plan (1) Acute on chronic systolic heart failure: The heart failure seems to be getting compensated. She is tolerating the medications so far well (2) Cardiomyopathy: We are initiating the GDMT. We will go ahead and start her on a low-dose of beta-warren namely metoprolol 12.5 mg p.o. twice daily. If the blood pressure tolerates, we may also start on Entresto tomorrow (3) Hypotension: The blood pressure seems to be in the normal range today. (4) LBBB (left bundle branch block): Possibility of underlying coronary artery disease cannot be excluded but my cli nical suspicion may be low. (5) Elevated troponin: Most likely from type II OK. May continue on the current measures for the time being. (6) GERD (gastroesophageal reflux disease): May continue on the current treatment measures. (7) Substance abuse: History of methamphetamine and fentanyl abuse Plan In order to further evaluate the patient's the coronary status as well as hemodynamics, a right and left heart catheterization would be appropriate. The risk of bleeding, hematoma, vascular injury, myocardial infarction, myocardial perforation, malignant cardiac arrhythmias ,CVA, renal failure and other concomitant complications were explained in detail. Patient understood this well and consented to proceed. She will be scheduled for this procedure tomorrow. Based on the results of the above tests and the patient's clinical progress, further recommendations will be made. Attestations Medical Necessity Statement*: Patient requires continued hospital stay for close monitoring and further management Coding Level of Care Code 04548 Diagnoses Acute on chronic systolic heart failure I50.23 Cardiomyopathy I42.9 Hypotension I95.9 LBBB (left bundle branch block) I44.7 Elevated troponin R79.89 GERD (gastroesophageal reflux disease) K21.9 Substance abuse F19.10
[2023-01-12 20:52] LABS: Partial Thromboplastin Time 52.2 SECONDS (23.9-36.7)
[2023-01-12] MEDS: atorvastatin 40 mg Tablet 20 MG PO (21:40)
[2023-01-12] MEDS: ALPRAZolam 0.5 mg Tablet 0.25 MG PO (21:40)
[2023-01-13] VITALS (11 sets, daily range): BP systolic 83–107; BP diastolic 54–72; PULSE 84–110; RESP 17–20; TEMP 36.1–36.6; O2SAT 92–94; BMI 20.7
[2023-01-13 02:00] LABS: Basophils % 0.3 %; Eosinophils # 0.2 10^3/uL (0.0-0.8); Eosinophils % 2.2 %; Hematocrit 44.4 % (36-47); Lymphocytes # 2.7 10^3/uL (0.8-4.8); Lymphocytes % 39.8 %; Mean Corpuscular HGB Conc 30.9 g/dL (30-55); Mean Corpuscular Hemoglobin 26.3 pg (27-33); Mean Corpuscular Volume 85.4 fl (85-98); Mean Platelet Volume 8.2 fL (7.4-10.4); Monocytes # 0.8 10^3/uL (0.2-0.9); Monocytes % 11.3 %; Neutrophils # 3.14 10^3/uL (1.8-7.7); Nucleated Red Blood Cells % 0 %; Platelet Count 479 10^3/cmm (157-399); Red Cell Distribution Width 16.4 % (12.1-15.1); White Blood Count 6.83 10^3/uL (3.29-11.43)
[2023-01-13 02:19] LABS: Alanine Aminotransferase 28 U/L (0-33); Albumin Level 3.3 g/dL (3.5-5.2); Alkaline Phosphatase 98 U/L (35-105); Anion Gap 10.6 (5-19); Aspartate Amino Transferase 35 U/L (0-32); Blood Urea Nitrogen 19 mg/dL (6-20); Calcium 8.7 mg/dL (8.5-10.5); Carbon Dioxide 31 mmol/L (22-29); Chloride 100 mmol/L (98-107); Glomerular Filtration Rate 89.3 mL/min (90-130); Glucose 82 mg/dL (65-115); Osmolality Calculated 287 mOsm/kg (285-295); Potassium 3.6 mmol/L (3.5-5.1); Sodium 138 mmol/L (136-145); Total Bilirubin 0.2 mg/dL (0.15-1.2); Total Protein 6.3 g/dL (6.6-8.7)
[2023-01-13 04:54] LABS: Folate Level 9.5 ng/mL (4.8-37.3)
[2023-01-13] MEDS: aspirin 325 mg Tablet PO (05:50)
[2023-01-13] MEDS: diphenhydrAMINE 50 mg Capsule PO (05:50)
[2023-01-13] MEDS: sodium chloride 0.9% 1,000 ML 50 ML IV (05:51)
--- NOTE | 2023-01-13 07:00 | XACV_ITS ---
Exam Room: [facility] Ht: 160 cm Wt: 53 kg BSA: 1.54 m2 Gender: Female : 1975 Any Known Allergies: Penicillins Exam Priority: Routine Procedure(s): Procedure Description: Diagnostic procedure Procedure Description: Left Heart Catheterization Procedure Description: Right Heart Catheterization Procedure Description: Left ventriculography Procedure Description: O2 saturation Procedure Description: Coronary Angiography [facility]; Diagnostic Cath Status: Elective Diagnostic Findings * The left main is a medium caliber vessel with no significant stenotic lesions. * The left anterior descending artery is a medium caliber elongated vessel which appears to have mild diffuse intimal ileocolitis in the proximal segment. There was mild to moderate coronary calcification as well. No significant lesions were noted in the diagonal branches. * The left circumflex artery is a medium caliber vessel which also was found to have minimal intimal irregularities. No significant stenotic lesions were noted. * The intermedius artery is a high obtuse marginal branch which also was found to have minimal intimal irregularities proximally with no significant stenotic lesions. * The right coronary artery is a medium caliber dominant vessel which was found to have no significant stenotic lesions. Conclusions 1. 47-year-old white female with no significant past medical history, history of multiple substance abuse, presenting with progressive shortness of breath for the last more than 6 months. She was found to have severe LV systolic dysfunction with ejection fraction of around 15%. She also was found to be in congestive heart failure. She underwent left heart catheterization with a left and right coronary angiogram and LV angiogram today. The findings are as follows. 2. Mild diffuse intimal irregularities in the proximal segments of the LAD, intermedius and circumflex artery. Mild to moderate calcification in the proximal left anterior descending artery. The left main and the right coronary artery were found to have no significant lesions. The LV gram revealed markedly dilated left ventricular with severe diffuse hypokinesia . The LV ejection fraction was 10 to 15%. LVEDP was 16 mmHg.. 3. The right heart catheterization revealed PA pressure of 37/18 with a mean of 24. Pulmonary capillary wedge pressure was 21. RV pressure of 33/5. The mean right atrial pressure was 6. Cardiac output by Massiel's was 2.0 with an index of 1.0. Diagnostic RX Recommendation: medical therapy and/or counseling LV EDP: 16 mmHg Ventriculography Ejection Fraction: 15.0 % Left Ventriculography Findings: * Markedly dilated left ventricle. Severe diffuse hypokinesia. No filling defects were noted. LVEDP was 16 mmHg which went up to 29 mmHg after the LV gram. Pressures Phase:Rest AO : 91 / 68 ( 75 ) @ 8:45:00 AM 78 / 69 ( 73 ) @ 8:46:00 AM 88 / 76 ( 79 ) @ 8:51:00 AM 100 / 74 ( 84 ) @ 8:59:00 AM 99 / 74 ( 83 ) @ 8:59:00 AM LV : 85 / 5 / 16 @ 8:58:00 AM 97 / 21 / 33 @ 8:59:00 AM 95 / 17 / 29 @ 8:59:00 AM RV : 33 / 5 / 8 @ 8:41:00 AM PA : 38 / 18 ( 23 ) @ 8:39:00 AM 37 / 18 ( 24 ) @ 8:40:00 AM RA : a wave = 8 v wave = 6 mean = 5 @ 8:42:00 AM PCW : a wave = 19 v wave = 30 mean = 21 @ 8:39:00 AM a wave = 19 v wave = 27 mean = 22 @ 8:39:00 AM O2 Content Phase:Rest PA : O2 Content O2: 50.9 @ 8:59:00 AM Saturations Phase:Rest AO : 90 @ 8:46:00 AM RA : 53 @ 8:45:00 AM RV : 51 @ 8:51:00 AM PA : 51 @ 8:59:00 AM Cardiac Output Phase:Rest Massiel : 2 @ 8:11:30 AM Massiel Cardiac Index: 1 @ 8:11:30 AM Flow Phase:Rest Qp : 2 @ 8:11:30 AM Qs : 2 @ 8:11:30 AM Valves Phase:DefaultPhase AV : 0.0 @ 8:11:30 AM 0.0 @ 8:11:30 AM AV Mean Gradient: 0.0 @ 8:11:30 AM 0.0 @ 8:11:30 AM AV Flow: 247 @ 8:11:30 AM Clinical Evaluation EBL: 5mL-10mL Procedural Details Procedure Consent Obtained. Pre-Procedure Time Out. Identified patient by full name and date of as verbalized by the patient/guarantor. Does the consent match the physician's order: Yes. Accurate & Complete Informed Consent: Yes. Inpatient/Outpatient History & Physical on Chart: Yes. If H&P is completed, is and addenduem needed: Yes; If yes, is the addendum complete: N/A. Visualize and Verify Site with Patient/Guarantor: N/A. Relevant Radiology Images available: Yes. Pre-op teaching completed and patient verbalized understanding. The risks, benefits, and alternatives of sedation and/or procedure were discussed by physician. The patient agrees to continue. Procedure started. [facility] Clinical Fraility Score: 3: Managing Well. 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 Chest Pain Symptom Assessment: Non-anginal Chest Pain. Correct patient, site and procedure confirmed by cath team. PERRLA. Strong, equal hand sanitor bilaterally. Lungs clear x 5 lobes. IV Site on Arrival: 18 gauge in the right anticubital. IV Fluids: 0.9% NaCl at KVO. 0 mL infused prior to systems testing laboratory technician. Pre Procedural Pulses: bilateral dorsalis pedis was 2+. Pre Procedural Pulses: bilateral posterior tibial was 2+. bilateral groins was prepped with chloroprep then draped in the usual sterile fashion. Baseline sample Acquired. HR: 87 BPM. Physician arrived. Physician scrubbed in. Immediate Pre-Procedure Time Out. Correct Patient: Yes; Correct Procedure: Yes; Correct Site: Yes; Correct Patient Position: Yes; Correct Supplies: Yes; Dried Flammable Prep: Yes; Blood Products Available: N/A;. Lidocaine 1% infiltrated to the right groin. Venous access obtained with a micropuncture set. Arterial access obtained with micropuncture set. ACT drawn. Results 169 seconds. Therapeutic limits - pre-heparin administration 90-150 seconds and monitoring heparin during a vascular procedure >250 seconds. [place] MON catheter inserted. Oximetry samples were obtained. Normal venous range: 60-85%. Normal arterial range: 95-100%. Pressure measurements obtained. [place] out. Respiratory called to run the O2 saturations. A 5 [place] JL4 catheter in over wire. Multiple views taken of left coronary artery. Catheter removed over the standard wire. A 5 [place] JR4 catheter in over wire. Multiple views taken of right coronary artery. Catheter removed over the standard wire. A 5 [place] Ang[place] catheter in over wire. Oxygen started at 2liters/min via nasal canula. EDP Sample taken: LV 85/5,16; HR: 77 BPM; SpO2: 100%. LV gram performed in JAQUEZ @ 12 mL/second for a total of 36 mL. EDP Sample taken: LV 97/21,33; HR: 80 BPM; SpO2: 99%. Pullback taken: LV 95/17,29; AO 100/74(84); Mean: 0mmHg, Peak to Peak: 0mmHg, SEP: 9sec/min; HR: 101 BPM; SpO2: 98%. Catheter removed over the standard wire. Physician scrubbed out. A Suture was successful obtaining hemostatsis at the Femoral vein insertion site. A Suture was successful obtaining hemostatsis at the Right Femoral artery insertion site. Arterial sheath flushed and connected to tranducer and pressure bag with heparinized saline. Post Procedure: Pulses reassessed and unchanged. PERRLA. Strong, equal hand sanitor bilaterally. No VTE prophylaxis required. Medication's Wasted: Other = Fentanyl 25 mcg. Total IV fluids: 57.8 mL. Vital chart was stopped. Post-op diagnosis: Cardiomyopathy, Low EF, Mild Pulmonary Hypertension. Complications: None. Estimated blood loss: 5mL-10mL. Responsiveness - Normal response to verbal stimuli; alert and oriented, PERRLA. Airway - Unaffected, no intervention required; spontaneous ventilation. Circulation: W/N/L, pulses unchanged. Nausea/Vomiting: No. Procedure completed. Patient transferred by bed to 1st floor. Access Site Site: Femoral vein Sheath Size: 6 Fr Hemostasis Method: Suture Hemostasis Success: Successful Site: Right Femoral artery Sheath Size: 5 Fr Hemostasis Method: Suture Hemostasis Success: Successful Procedure Medications Start: 7:19 AM Stop: 7:19 AM Medication: Versed Amount: 1 mg Route: I.V. Start: 7:19 AM Stop: 7:19 AM Medication: Fentanyl Amount: 25 mcg Route: I.V. Start: 7:55 AM Stop: 7:55 AM Medication: Versed Amount: 1 mg Route: I.V. I, the attending physician, have reviewed and verified all procedure medications. Yes, all medications given per verbal order History/Risk Factors Hypertension: No Dyslipidemia: No Peripheral Arterial Disease (PAD): No Myocardial Infarction ([place]): No Obesity: No Renal Disease: No Tobacco Use: Current/Recent(w/in 1 year) Prior Interventions PCI: No CABG: No Valve Surgery: No Report Signatures Finalized by Dr Ron Graham MD [facility] on 01/13/2023 08:29 AM
--- NOTE | 2023-01-13 07:09 | W.PM.OPSUD ---
Surgery/Procedure H&P Update DATE OF PROCEDURE: January 13, 2023 DATE H&P PERFORMED: 01/11/23 H&P UPDATE INFORMATION: I have reviewed H&P completed within last 30 days, I have examined patient prior to procedure and No changes to prior documentation PREOP DIAGNOSIS: suspected ASHD PRIMARY INDICATION FOR PROCEDURE: CHF/ Cardiomyopathy PLANNED PROCEDURE: Operation Date: 01/13/23 07:00 Proposed Procedures p Left and right heart cath(Bilateral) - Ron Graham MD PATIENT REASSESSED PRIOR TO SEDATION, WITH NO CHANGE NOTED: Yes PHYSICAL EXAM: alert, oriented x 3, clear to auscultation bilaterally and regular rate & rhythm AIRWAY EVAL/ANESTHESIA PLAN: normal airway, see other exam findings, ASA III, Monitored Anesthesia, Local Anesthesia, Risks, benefits & alternatives of sedation and/or procedure discussed and Patient agrees to continue as planned
--- NOTE | 2023-01-13 07:12 | PM.PN ---
Subjective Subjective: The patient is feeling okay. Her shortness of breath significant improved. No chest pain or palpitations. Remains afebrile. No significant arrhythmias on the monitor Medications: Medication Review Details: Current Medications Alprazolam (Alprazolam 0.5 Mg Tablet) 0.25 mg PO BID PRN PRN Reason: ANXIETY Stop: 01/13/23 17:04 Last Admin: 01/12/23 21:40 Dose: 0.25 mg Aspirin (Aspirin 81 Mg Ec Tablet) 81 mg PO DAILY [facility] Last Admin: 01/12/23 08:46 Dose: 81 mg Atorvastatin Calcium (Atorvastatin 40 Mg Tablet) 20 mg PO BEDTIME [facility] Last Admin: 01/12/23 21:40 Dose: 20 mg Cyclobenzaprine HCl (Cyclobenzaprine 10 Mg Tablet) 5 mg PO ONCE PRN PRN Reason: MUSCLE SPASMS Last Admin: 01/10/23 23:04 Dose: 5 mg Famotidine (Famotidine 20 Mg/2 Ml Inj) 20 mg IVP Q12H [facility] Last Admin: 01/12/23 21:40 Dose: 20 mg Furosemide (Furosemide 20 Mg Tablet) 20 mg PO DAILY@0800 [facility] Heparin Sodium (Porcine) (Heparin 5,000 Unit/Ml Inj 1 Ml) 0 unit IV PRN PRN; Protocol PRN Reason: Heparin weight-base protocol Last Admin: 01/12/23 21:41 Dose: 1,100 unit Heparin Sodium/Sodium Chloride (Heparin Drip) 25,000 unit in 500 mls @ 0 mls/hr IV .Q0M [facility]; Protocol Last Titration: 01/13/23 02:59 Dose: 22.44 unit/kg/hr, 25 mls/hr Sodium Chloride (Sodium Chloride 0.9%) 1,000 mls @ 50 mls/hr IV .Q20H [facility] Stop: 01/14/23 01:59 Last Admin: 01/13/23 05:51 Dose: 50 mls/hr Losartan Potassium (Losartan 50 Mg Tablet) 25 mg PO DAILY [facility] Last Admin: 01/12/23 08:46 Dose: 25 mg Metoprolol Tartrate (Metoprolol Tartrate 25 Mg Tablet) 12.5 mg PO BID@0900,2100 [facility] Last Admin: 01/12/23 21:41 Dose: 12.5 mg Nicotine (Nicotine 21 Mg Patch) 1 patch TRANSDERMA DAILY [facility] Last Admin: 01/12/23 10:57 Dose: 1 patch Spironolactone (Spironolactone 25 Mg Tablet) 12.5 mg PO DAILY [facility] Vitals/I&O/Wt Last Vital Signs Temp 97.8 F 01/13/23 04:33 Pulse 91 01/13/23 06:00 Resp 18 01/13/23 04:33 BP 99/59 01/13/23 04:33 Pulse Ox 94 01/13/23 04:33 O2 Del Method Room Air 01/13/23 04:33 O2 Flow Rate 2 01/11/23 04:00 01/12/23 01/13/23 01/13/23 22:59 06:59 14:59 Intake Total 680 / 1011.250 371.333 / 1382.583 Output Total 3400 / 3400 Balance 680 / 1011.250 -3028.667 / -2017.417 Weight last 48 hrs Weight 117 lb 2 oz Weight 117 lb 2 oz Physical Exam Narrative: GENERAL: The patient is alert and oriented times three. Not in any acute distress. HEENT: No significant pallor, icterus or lymphadenopathy.Oral cavity: There are no mucous membrane lesions. NECK: Trachea appears to be central. No masses noted. No JVD or thyromegaly appreciated. RESPIRATORY: Chest is symmetrical. No intercostals muscle retraction or any accessory muscle activation. There is no chest wall tenderness. Breath sounds are heard bilaterally. No rales or rhonchi heard. No evidence of any consolidation. BREASTS: Deferred. HEART: Patient has a healing apical impulse. First Significant heart sounds are normal. She has a soft S3. Short systolic murmur in the left sternal border. No diastolic murmurs. No pericardial rub ABDOMEN: No vessel pulsations or distention. No tenderness. No organomegaly appreciated. Bowel sounds are normally heard. : Deferred. RECTAL: Deferred. LYMPHATIC: No lymphadenopathy noted in the neck. EXTREMITIES: 1-2+ edema both lower extremities with no cyanosis MUSCULOSKELETAL: No acute joint deformities or swelling SKIN: There are no significant rashes or ecchymosis NEUROPSYCHIATRIC: The patient is alert and oriented x3. Appears to be in a good mood. No tremors or rigidity noted. Data 01/13/23 01:55 01/13/23 01:55 A&P Assessment and plan (1) Acute on chronic systolic heart failure: The heart failure seems to be getting compensated. She is tolerating the medications so far well (2) Cardiomyopathy: May continue on the current medications. We will consider starting her on Entresto, if the blood pressure tolerates. (3) Hypotension: The blood pressure seems to be staying in the normal range, most of the times. (4) LBBB (left bundle branch block): Possibility of underlying coronary artery disease cannot be excluded but my clinical suspicion may be low. (5) Elevated troponin: Most likely from type II PR. May continue on the current measures for the time being. (6) GERD (gastroesophageal reflux disease): May continue on the current treatment measures. (7) Substance abuse: History of methamphetamine and fentanyl abuse. Cardiovascular implications were discussed. Patient is planning to make lifestyle changes Plan The BUN/creatinine ratio are in the normal range. Cardiac catheterization today. The risk of bleeding, hematoma, vascular injury, myocardial infarction, myocardial perforation, malignant cardiac arrhythmias ,CVA, renal failure and other concomitant complications were explained in detail. Patient understood this well and consented to proceed. Based on the catheterization findings, further recommendations will be made Attestations Medical Necessity Statement*: Patient requires continued hospital stay for close monitoring and further management Coding Level of Care Code Acute Code for [facility] Diagnoses Acute on chronic systolic heart failure I50.23 Cardiomyopathy I42.9 Hypotension I95.9 LBBB (left bundle branch block) I44.7 Elevated troponin R79.89 GERD (gastroesophageal reflux disease) K21.9 Substance abuse F19.10
[2023-01-13 07:59] LABS: Alveolar-Arterial Oxygen Gradi 2.4 mmHg (5-10); Arterial Blood Gas Hematocrit 41.2 % (37-47); Blood Gas Allen Test Pos; Blood Gas Operator Identificat MONRO; Blood Gas Sample Site AO; Blood Gas Sample Type Arterial; Carboxyhemoglobin 1.5 %THgb (0.4-20.1); HGB O2 Sat 88.2 % (95-100); Methemoglobin 0.7 % (0.4-1.5); Oxygen Device ROOM AIR; Total Hemoglobin 13.4 g/dL (12-16)
[2023-01-13 08:01] LABS: Alveolar-Arterial Oxygen Gradi 5.6 mmHg (5-10); Arterial Blood Gas Hematocrit 39.7 % (37-47); Blood Gas Allen Test Pos; Blood Gas Operator Identificat MONRO; Blood Gas Sample Site RA; Blood Gas Sample Type Arterial; Carboxyhemoglobin 1.3 %THgb (0.4-20.1); HGB O2 Sat 51.4 % (95-100); Oxygen Device ROOM AIR; Total Hemoglobin 12.9 g/dL (12-16)
[2023-01-13 08:02] LABS: Alveolar-Arterial Oxygen Gradi 5.2 mmHg (5-10); Arterial Blood Gas Hematocrit 40.1 % (37-47); Blood Gas Allen Test Pos; Blood Gas Operator Identificat MONRO; Blood Gas Sample Site RV; Blood Gas Sample Type Arterial; Carboxyhemoglobin 1.2 %THgb (0.4-20.1); HGB O2 Sat 50.2 % (95-100); Methemoglobin 0.9 % (0.4-1.5); Oxygen Device ROOM AIR; Total Hemoglobin 13.1 g/dL (12-16)
[2023-01-13 08:04] LABS: Arterial Blood Gas Hematocrit 40.8 % (37-47); Blood Gas Allen Test Pos; Blood Gas Operator Identificat MONRO; Blood Gas Sample Site PA; Blood Gas Sample Type Arterial; Carboxyhemoglobin 1.3 %THgb (0.4-20.1); HGB O2 Sat 49.8 % (95-100); Methemoglobin 0.9 % (0.4-1.5); Oxygen Device ROOM AIR; Total Hemoglobin 13.3 g/dL (12-16)
--- NOTE | 2023-01-13 08:28 | PC.NURSE ---
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
[2023-01-13] MEDS: famotidine 20 mg/2 mL INJ IVP ×2 (09:26→20:52)
[2023-01-13] MEDS: aspirin 81 mg EC Tablet PO (09:26)
[2023-01-13] MEDS: sacubitril/valsartan 24-26 mg Tablet 1 EACH PO ×2 (09:27→17:54)
[2023-01-13] MEDS: FUROsemide 20 mg Tablet PO (09:27)
[2023-01-13] MEDS: metoprolol tartrate 25 mg Tablet 12.5 MG PO ×2 (09:27→20:52)
[2023-01-13] MEDS: spironolactone 25 mg Tablet 12.5 MG PO (09:27)
[2023-01-13] MEDS: nicotine 21 mg Patch 1 PATCH TRANSDERMA (09:34)
--- NOTE | 2023-01-13 09:42 | PC.NURSE ---
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 Her sheath site is bloody with no hematoma. Dr. Graham did come and see the site. He just ordered to pull the sheaths as soon as possible. Patient is told that she must lay flat and not move her right leg until we tell her it is safe. Patient states understanding.
[2023-01-13 09:59] LABS: Partial Thromboplastin Time 31.1 SECONDS (23.9-36.7)
[2023-01-13] MEDS: ALPRAZolam 0.5 mg Tablet 0.25 MG PO ×2 (13:20→20:53)
--- NOTE | 2023-01-13 16:05 | PC.NURSE ---
Patient comes from [facility] to [facility] with a right arterial sheath and a right venous sheath. Patients right arterial sheath is pulled at 1025 with hemostasis at 1025. Manual pressure is held for 20 minutes, until 1045. No hematoma is noted. The patients venous sheath is pulled at 1045 with hemostasis at 1045. Manual pressure is held for 10 minutes, until 1055. No hematoma is noted. A 4 x 4 and tegaderm dressing is applied. Vitals were stable throughout. Patient tolerated well.
--- NOTE | 2023-01-13 16:13 | PC.NURSE ---
Nurse enters room to help her set up to 20 degrees for lunch and to check her sheath site. Patient said that she thought maybe it was bleeding. Upon viewing the site her bandage is saturated with blood and oozing down her right hip. Bandage is removed and manual pressure is applied x 20 minutes. Hemastasis is obtained at 1245, pressure held until 1305. No hematoma is noted. Patients vials were stable throughout. A 4 x 4 and tegaderm is applied. Patient tolerated well. Patient is reminded that she needs to not move her right leg or sit up until 1900. She stated understanding.
--- NOTE | 2023-01-13 17:36 | PM.PN ---
Subjective Subjective: No acute events overnight. Patient states she is feeling fine. Underwent cardiac catheterization today. Denies any nausea, vomiting, headache. Remains on room air. Hemodynamically stable. Vitals/I&O/Wt Last Vital Signs Temp 97.2 F L 01/13/23 15:32 Pulse 89 01/13/23 15:32 Resp 17 01/13/23 15:32 BP 103/60 01/13/23 15:32 Pulse Ox 92 01/13/23 15:32 O2 Del Method Room Air 01/13/23 15:32 O2 Flow Rate 2 01/11/23 04:00 01/13/23 01/13/23 01/13/23 06:59 14:59 22:59 Intake Total 371.333 / 1382.583 606.95 / 606.95 Output Total 3400 / 3400 Balance -3028.667 / -2017.417 606.95 / 606.95 Weight last 48 hrs Weight 53.127 kg Weight 53.127 kg Physical Exam Const: COMMON NORMALS: patient oriented x3 and alert GENERAL APPEARANCE: cooperative ORIENTATION/CONSCIOUSNESS: Yes awake HENMT: COMMON NORMALS: oropharynx normal Neck/C-Spine: COMMON NORMALS: no JVD Resp: COMMON NORMALS: normal respiratory effort and clear to auscultation bilaterally AUSCULTATION: clear to auscultation bilaterally Cardio: COMMON NORMALS: no JVD, regular rhythm, S1 normal heart sound present, S2 normal heart sound present and No murmurs present (Cardio) RHYTHM: regular rhythm HEART SOUNDS: S1 normal heart sound present and S2 normal heart sound present GI: COMMON NORMALS: Normal to inspection, nondistended, normoactive bowel sounds present, Soft to palpation and non-tender PALPATION: Yes Soft to palpation Extremity: COMMON NORMALS: no joint enlargement and no pedal edema Neuro: COMMON NORMALS: patient oriented x3 and moves all extremities SENSORIUM/ORIENTATION: Yes alert Skin: COMMON NORMALS: no rashes or lesions noted GENERAL SKIN EXAM: no rashes or lesions noted Data 01/13/23 01:55 01/13/23 01:55 A&P Assessment and plan (1) Cardiomyopathy: Questionable mildly dilated LV with severe diffuse hypokinesia of LV with EF of 15%, increased LA size, mildly dilated RA with RV dilatation and slightly diminished function, mild to moderate MR, mild TR. High likelihood of nonischemic cardiomyopathy though patient still needs further work-up to rule out ischemic cardiomyopathy. Cardiology on board. Plan for cardiac catheterization for further work-up once patient is more euvolemic. Patient will most likely need LifeVest at discharge. (2) CHF exacerbation: Acute systolic and diastolic congestive heart failure. Strict input output charting. Monitor electrolytes. Target potassium around 4, magnesium around 2. IV Lasix 40 mg twice daily. Fluid restriction up to 1500 cc. Continue with losartan 25 mg daily, spironolactone 12.5 mg daily. Add low-dose metoprolol at 12.5 mg twice daily. We will continue with guideline directed heart failure therapy. Qualifiers: Heart failure type: combined systolic and diastolic Qualified Code(s): I50.43 - Acute on chronic combined systolic (congestive) and diastolic (congestive) heart failure (3) Elevated troponin: Cannot rule out demand ischemia. Appreciate echocardiogram. Continue with heparin drip for now. Further ACS work-up as per cardiology. Continue with aspirin, statin. Appreciate A1c, lipid panel. (4) GERD (gastroesophageal reflux disease): IV Pepcid 20 mg twice a day for now (5) Smoker: Discussed in detail about smoking cessation. Nicotine patch as needed. (6) LBBB (left bundle branch block): Old versus new. No records from past. (7) Hypotension: (8) Amphetamine abuse: Urine drug screen past positive for amphetamines. Not done on current admissions. As per family members was recently possibly incarcerated for amphetamine possession though patient herself denies recent use. Plan Heparin drip-DVT prophylaxis Cardiac diet, n.p.o. after midnight for possible cardiac catheterization Famotidine for PUD prophylaxis. Plan for the day: Follow-up cardiac catheterization report. Continue with guideline directed medical therapy for severe cardiomyopathy with congestive heart failure. Switch from losartan to Entresto as per cardiology recommendations. Monitor electrolytes and vitals given changes in medications. Repeat CMP in AM. Continue with low-dose metoprolol. Lasix switched to oral as per cardiology recommendations. Continue with fluid restriction. LifeVest ordered as per cardiology services. Plan to discharge the next 24 hours to home on medical therapy with close follow-up with PCP and cardiology services. Attestations Medical Necessity Statement*: Requires further hospitalization for management of severe cardiomyopathy with LV dysfunction while guideline directed medical therapy is further adjusted and vitals are monitored Diagnoses Cardiomyopathy I42.9 CHF exacerbation I50.43 Heart failure type: combined systolic and diastolic Elevated troponin R79.89 GERD (gastroesophageal reflux disease) K21.9 Smoker F17.200 LBBB (left bundle branch block) I44.7 Hypotension I95.9 Amphetamine abuse F15.10
[2023-01-13 19:58] LABS: Amphetamines Screen Urine Positive (Negative); Barbiturates Screen Urine Negative (Negative); Benzodiazepines Screen Urine Positive (Negative); Cocaine Screen Urine Negative (Negative); Opiate Screen Urine Negative (Negative); PCP Screen Urine Negative (Negative); THC Screen Urine Positive (Negative)
[2023-01-13] MEDS: atorvastatin 40 mg Tablet 20 MG PO (20:53)
[2023-01-14 04:19] LABS: Basophils % 0.3 %; Eosinophils # 0.2 10^3/uL (0.0-0.8); Eosinophils % 2.5 %; Hematocrit 44.4 % (36-47); Lymphocytes % 27.4 %; Mean Corpuscular HGB Conc 31.1 g/dL (30-55); Mean Corpuscular Hemoglobin 26.3 pg (27-33); Mean Corpuscular Volume 84.6 fl (85-98); Mean Platelet Volume 8.1 fL (7.4-10.4); Monocytes # 0.8 10^3/uL (0.2-0.9); Monocytes % 10.6 %; Neutrophils % 58.8 %; Nucleated Red Blood Cells % 0 %; Platelet Count 462 10^3/cmm (157-399); Red Blood Count 5.25 10^6/uL (3.85-5.65); Red Cell Distribution Width 16.2 % (12.1-15.1); White Blood Count 7.15 10^3/uL (3.29-11.43)
[2023-01-14] MEDS: acetaminophen 325 mg Tablet 650 MG PO (04:19)
[2023-01-14 04:46] LABS: Alanine Aminotransferase 25 U/L (0-33); Albumin Level 3.1 g/dL (3.5-5.2); Alkaline Phosphatase 86 U/L (35-105); Anion Gap 12.6 (5-19); Aspartate Amino Transferase 25 U/L (0-32); Blood Urea Nitrogen 14 mg/dL (6-20); Calcium 8.4 mg/dL (8.5-10.5); Carbon Dioxide 23 mmol/L (22-29); Chloride 102 mmol/L (98-107); Globulin 2.9 g/dL (1.3-4.6); Glomerular Filtration Rate 106.7 mL/min (90-130); Glucose 148 mg/dL (65-115); Osmolality Calculated 279 mOsm/kg (285-295); Potassium 4.6 mmol/L (3.5-5.1); Sodium 133 mmol/L (136-145); Total Bilirubin 0.2 mg/dL (0.15-1.2)
[2023-01-14 05:20] VITALS: BP 107/62; PULSE 95; RESP 21; TEMP 36.4; O2SAT 95
[2023-01-14 06:00] VITALS: PULSE 96; BMI 20.9
--- NOTE | 2023-01-14 08:20 | PM.PN ---
Subjective Subjective: Patient is feeling okay. She had a cardiac catheterization yesterday. She was found to have mild disease in the proximal segments of the left anterior descending artery and circumflex artery. Mild to moderate calcification was noted in the proximal LAD. Mild pulmonary hypertension. Based on the angiogram findings, it was opted to treat her medically. She was started on Entresto yesterday. The blood pressure seems to be staying in the normal range. Medications: Medication Review Details: Current Medications Acetaminophen (Acetaminophen 325 Mg Tablet) 650 mg PO Q6H PRN PRN Reason: MILD PAIN Last Admin: 01/14/23 04:19 Dose: 650 mg Al Hydrox/Mg Hydrox/Simethicone (Sumy-Npr-Ldobclkds-Myles 30 Ml Udc) 30 ml PO Q15M PRN PRN Reason: INDIGESTION Alprazolam (Alprazolam 0.5 Mg Tablet) 0.25 mg PO TID PRN PRN Reason: ANXIETY Last Admin: 01/13/23 20:53 Dose: 0.25 mg Aspirin (Aspirin 81 Mg Ec Tablet) 81 mg PO DAILY [facility] Last Admin: 01/13/23 09:26 Dose: 81 mg Atorvastatin Calcium (Atorvastatin 40 Mg Tablet) 20 mg PO BEDTIME [facility] Last Admin: 01/13/23 20:53 Dose: 20 mg Atropine Sulfate (Atropine 1 Mg/Ml Sdv 1 Ml) 0.5 mg IVP PRN PRN PRN Reason: Symptomatic bradycardia Cyclobenzaprine HCl (Cyclobenzaprine 10 Mg Tablet) 5 mg PO ONCE PRN PRN Reason: MUSCLE SPASMS Last Admin: 01/10/23 23:04 Dose: 5 mg Famotidine (Famotidine 20 Mg/2 Ml Inj) 20 mg IVP Q12H CHANNING Last Admin: 01/13/23 20:52 Dose: 20 mg Furosemide (Furosemide 20 Mg Tablet) 20 mg PO DAILY@0800 [facility] Last Admin: 01/13/23 09:27 Dose: 20 mg Heparin Sodium (Porcine) (Heparin 5,000 Unit/Ml Inj 1 Ml) 0 unit IV PRN PRN; Protocol PRN Reason: Heparin weight-base protocol Last Admin: 01/12/23 21:41 Dose: 1,100 unit Heparin Sodium/Sodium Chloride (Heparin Drip) 25,000 unit in 500 mls @ 0 mls/hr IV .Q0M CHANNING; Protocol Last Titration: 01/13/23 07:26 Dose: Infused Magnesium Hydroxide (Magnesium Hydroxide 30 Ml Udc) 30 ml PO DAILY PRN PRN Reason: CONSTIPATION Metoprolol Tartrate (Metoprolol Tartrate 25 Mg Tablet) 12.5 mg PO BID@0900,2100 [facility] Last Admin: 01/13/23 20:52 Dose: 12.5 mg Naloxone HCl (Naloxone 0.4 Mg/Ml Sdv) 0.1 mg IVP Q2M PRN PRN Reason: RESPIRATORY RATE < 8/MIN Nicotine (Nicotine 21 Mg Patch) 1 patch TRANSDERMA DAILY [facility] Last Admin: 01/13/23 09:34 Dose: 1 patch Nitroglycerin (Nitroglycerin 0.4 Mg Sublingual Tablet) 0.4 mg SUBLINGUAL Q5M PRN PRN Reason: CHEST PAIN Sacubitril/Valsartan (Sacubitril/Valsartan 24-26 Mg Tablet) 1 each PO BID [facility] Last Admin: 01/13/23 17:54 Dose: 1 each Spironolactone (Spironolactone 25 Mg Tablet) 12.5 mg PO DAILY [facility] Last Admin: 01/13/23 09:27 Dose: 12.5 mg Temazepam (Temazepam 15 Mg Capsule) 15 mg PO BEDTIME PRN PRN Reason: INSOMNIA Vitals/I&O/Wt Last Vital Signs Temp 97.5 F L 01/14/23 05:20 Pulse 96 01/14/23 06:00 Resp 21 H 01/14/23 05:20 BP 107/62 01/14/23 05:20 Pulse Ox 95 01/14/23 05:20 O2 Del Method Room Air 01/13/23 15:32 O2 Flow Rate 2 01/11/23 04:00 01/13/23 01/14/23 01/14/23 22:59 06:59 14:59 Intake Total 1000 / 1606.95 Output Total 750 / 750 1200 / 1950 Balance -750 / -143.05 -200 / -343.05 Weight last 48 hrs Weight 118 lb 4 oz Weight 117 lb 2 oz Physical Exam Narrative: GENERAL: The patient is alert and oriented times three. Not in any acute distress. HEENT: No significant pallor, icterus or lymphadenopathy.Oral cavity: There are no mucous membrane lesions. NECK: Trachea appears to be central. No masses noted. No JVD or thyromegaly appreciated. RESPIRATORY: Chest is symmetrical. No intercostals muscle retraction or any accessory muscle activation. There is no chest wall tenderness. Breath sounds are heard bilaterally. No rales or rhonchi heard. No evidence of any consolidation. BREASTS: Deferred. HEART: Patient has a healing apical impulse. First Significant heart sounds are normal. She has a soft S3. Short systolic murmur in the left sternal border. No diastolic murmurs. No pericardial rub ABDOMEN: No vessel pulsations or distention. No tenderness. No organomegaly appreciated. Bowel sounds are normally heard. : Deferred. RECTAL: Deferred. LYMPHATIC: No lymphadenopathy noted in the neck. EXTREMITIES: No hematoma bleeding from the right groin. MUSCULOSKELETAL: No acute joint deformities or swelling SKIN: There are no significant rashes or ecchymosis NEUROPSYCHIATRIC: The patient is alert and oriented x3. Appears to be in a good mood. No tremors or rigidity noted. Data 01/14/23 04:11 01/14/23 04:11 Other Labs: Laboratory Last Values WBC 7.15 10^3/uL (3.29-11.43) 01/14/23 04:11 RBC 5.25 10^6/uL (3.85-5.65) 01/14/23 04:11 Hgb 13.80 g/dL (11.27-16.99) 01/14/23 04:11 Hct 44.4 % (36-47) 01/14/23 04:11 MCV 84.6 fl (85-98) L 01/14/23 04:11 MCH 26.3 pg (27-33) L 01/14/23 04:11 MCHC 31.1 g/dL (30-55) 01/14/23 04:11 RDW 16.2 % (12.1-15.1) H 01/14/23 04:11 Plt Count 462 10^3/cmm (157-399) H 01/14/23 04:11 MPV 8.1 fL (7.4-10.4) 01/14/23 04:11 Neut % (Auto) 58.8 % 01/14/23 04:11 Lymph % (Auto) 27.4 % 01/14/23 04:11 Becker % (Auto) 10.6 % 01/14/23 04:11 Eos % (Auto) 2.5 % 01/14/23 04:11 Baso % (Auto) 0.3 % 01/14/23 04:11 Neut # (Auto) 4.20 10^3/uL (1.8-7.7) 01/14/23 04:11 Lymph # (Auto) 2.0 10^3/uL (0.8-4.8) 01/14/23 04:11 Becker # (Auto) 0.8 10^3/uL (0.2-0.9) 01/14/23 04:11 Eos # (Auto) 0.2 10^3/uL (0.0-0.8) 01/14/23 04:11 Baso # (Auto) 0.0 10^3/uL (0.0-0.1) 01/14/23 04:11 Nucleated RBC % (auto) 0 % 01/14/23 04:11 Nucleated RBCs # 0.0 /100WBC 01/14/23 04:11 APTT 31.1 SECONDS (23.9-36.7) D 01/13/23 08:55 Specimen Type Arterial 01/13/23 08:03 Sample Site Pa 01/13/23 08:03 Haroldo Test Pos 01/13/23 08:03 A-a O2 Gradient 5.0 mmHg (5-10) 01/13/23 08:03 Hematocrit 40.8 % (37-47) 01/13/23 08:03 Hgb O2 Saturation 49.8 % (95-100) L 01/13/23 08:03 Carboxyhemoglobin 1.3 %THgb (0.4-20.1) 01/13/23 08:03 Methemoglobin 0.9 % (0.4-1.5) 01/13/23 08:03 Total Hemoglobin 13.3 g/dL (12-16) 01/13/23 08:03 O2 Delivery Device Room air 01/13/23 08:03 FiO2 21.0 % 01/13/23 08:03 Food Order Expediter ID Emro 01/13/23 08:03 Sodium 133 mmol/L (136-145) L 01/14/23 04:11 Potassium 4.6 mmol/L (3.5-5.1) 01/14/23 04:11 Chloride 102 mmol/L (98-107) 01/14/23 04:11 Carbon Dioxide 23 mmol/L (22-29) 01/14/23 04:11 Anion Gap 12.6 (5-19) 01/14/23 04:11 BUN 14 mg/dL (6-20) 01/14/23 04:11 Creatinine 0.6 mg/dL (0.5-0.9) 01/14/23 04:11 GFR Calculation 106.7 mL/min (90-130) 01/14/23 04:11 Glucose 148 mg/dL (65-115) H 01/14/23 04:11 Estimat Average Glucose 114 01/11/23 04:26 Hemoglobin A1c 5.6 % (4.0-6.0) 01/11/23 04:26 Calculated Osmolality 279 mOsm/kg (285-295) L 01/14/23 04:11 Calcium 8.4 mg/dL (8.5-10.5) L 01/14/23 04:11 Phosphorus 4.8 mg/dL (2.5-4.5) H 01/11/23 04:26 Magnesium 2.0 mg/dL (1.7-2.3) 01/12/23 04:11 Iron 20 ug/dL (37-145) L 01/12/23 11:55 TIBC 402 mcg/dl 01/12/23 11:55 % Saturation 4.9 % (20-50) L 01/12/23 11:55 Unsat Iron Binding 382 ug/dL (112-347) H 01/12/23 11:55 Total Bilirubin 0.2 mg/dL (0.15-1.2) 01/14/23 04:11 AST 25 U/L (0-32) 01/14/23 04:11 ALT 25 U/L (0-33) 01/14/23 04:11 Alkaline Phosphatase 86 U/L (35-105) 01/14/23 04:11 Troponin T Gen 5 ng/L 281 ng/L (0-10) H* 01/11/23 04:26 Troponin T Baseline 26 ng/L (0-10) H 01/10/23 17:50 Troponin T 120 Minute 45.79 ng/L (0-10) H 01/10/23 19:57 Delta Troponin T 19.79 ABS# (0-10) H* 01/10/23 19:57 Troponin T Hi Sens 6Hr 152.8 ng/L (0-10) H 01/11/23 00:20 Troponin T Hi Sens 6Hr Delta 126.8 ng/L (0-12) H* 01/11/23 00:20 NT-Pro-B Natriuret Pep 77102 pg/mL (0-125) H 01/11/23 04:26 Total Protein 6.0 g/dL (6.6-8.7) L 01/14/23 04:11 Albumin 3.1 g/dL (3.5-5.2) L 01/14/23 04:11 Globulin 2.9 g/dL (1.3-4.6) 01/14/23 04:11 Triglycerides 66 mg/dL (0-150) 01/11/23 04:26 Cholesterol 174 mg/dL (0-200) 01/11/23 04:26 LDL Cholesterol, Calc 116 mg/dL (50-129) 01/11/23 04:26 HDL Cholesterol 45 mg/dL (60-100) L 01/11/23 04:26 LDL/HDL Ratio 2.58 RATIO (0.00-3.22) 01/11/23 04:26 Cholesterol/HDL Ratio 3.87 mg/dL (0.0-4.40) 01/11/23 04:26 Vitamin B12 370 pg/mL (232-1245) 01/12/23 04:11 Folate 9.5 ng/mL (4.8-37.3) 01/13/23 01:55 TSH 1.27 uIU/mL (0.27-4.20) 01/12/23 04:11 Urine Opiates Screen Negative ng/mL (Negative) 01/13/23 19:26 Ur Barbiturates Screen Negative ng/mL (Negative) 01/13/23 19:26 Ur Phencyclidine Scrn Negative ng/mL (Negative) 01/13/23 19:26 Ur Amphetamines Screen Positive ng/mL (Negative) H 01/13/23 19:26 U Benzodiazepines Scrn Positive ng/mL (Negative) H 01/13/23 19:26 Urine Cocaine Screen Negative ng/mL (Negative) 01/13/23 19:26 U Marijuana (THC) Screen Positive ng/mL (Negative) H 01/13/23 19:26 Coronavirus 229E (PCR) Not detected (NOT DETECT) 01/10/23 18:30 SARS-CoV-2 (PCR) Not detected (NOT DETECT) 01/10/23 18:30 A&P Assessment and plan (1) Acute on chronic systolic heart failure: The heart failure seems to be getting compensated. She is tolerating the medications so far well. The angiogram findings were discussed with the patient once again. (2) Cardiomyopathy: Continue on the current dose of Entresto. We will be titrating up the dose of the Entresto as an outpatient. LifeVest was ordered. Most likely it will be put on today (3) Hypotension: Currently she is normotensive. Continue on the current medications. (4) LBBB (left bundle branch block): Mostly related to the structural heart disease (5) Elevated troponin: Most likely from type II GA. May continue on the current measures for the time being. (6) GERD (gastroesophageal reflux disease): May continue on the current treatment measures. (7) Substance abuse: The need for lifestyle modification was once again discussed with the patient detail which she understood well. Plan If the patient continues to remain stable, may be discharged home after the LifeVest. She need to be started on Jardiance as an outpatient. Make an appointment to be seen at the heart care clinic next week by the nurse practitioner. The dose of the Entresto will be titrated up as an outpatient. May continue on the other current medication for the time being. Disposition as per the primary Attestations Medical Necessity Statement*: Possible discharge home today Coding Level of Care Code 46900 Diagnoses Acute on chronic systolic heart failure I50.23 Cardiomyopathy I42.9 Hypotension I95.9 LBBB (left bundle branch block) I44.7 Elevated troponin R79.89 GERD (gastroesophageal reflux disease) K21.9 Substance abuse F19.10
[2023-01-14 08:21] VITALS: BP 107/70; PULSE 97; RESP 23
[2023-01-14] MEDS: spironolactone 25 mg Tablet 12.5 MG PO (09:17)
[2023-01-14] MEDS: FUROsemide 20 mg Tablet PO (09:22)
[2023-01-14] MEDS: sacubitril/valsartan 24-26 mg Tablet 1 EACH PO (09:23)
[2023-01-14] MEDS: aspirin 81 mg EC Tablet PO (09:23)
[2023-01-14] MEDS: metoprolol tartrate 25 mg Tablet 12.5 MG PO (09:24)
[2023-01-14] MEDS: nicotine 21 mg Patch 1 PATCH TRANSDERMA (09:24)
--- NOTE | 2023-01-14 10:14 | PM.DCS ---
Discharge Providers Date of Admission: 01/10/23 20:24 Date of Discharge: January 14, 2023 Attending Provider at Admission: Thi Burnette MD Attending Provider at Discharge: Andrew Hanson MD Consults: Cardiology: Dr. Graham Diagnoses at Discharge Discharge Diagnosis (1) Acute on chronic systolic heart failure: Status: Acute (2) Cardiomyopathy: Status: Acute (3) Hypotension: Status: Acute (4) LBBB (left bundle branch block): Status: Acute (5) Elevated troponin: Status: Acute (6) GERD (gastroesophageal reflux disease): Status: Acute (7) Substance abuse: Status: Acute Reason for Visit Reason for Visit: SOB/anxiety Brief History: History as per HPI: Eunice Miranda is a 47 year old female with history of GERD active smoker 1 pack/day, presented with complaint of shortness of breath gradually progressing since 2 weeks.? She reports she usually has shortness of breath secondary to her panic attack but this was different than her usual episode.? Shortness of breath was associated with dizziness and substernal chest discomfort.? She denied any fever cold cough abdominal pain or urinary complaints.? Last visit to PCP was 2 years ago.? He denied any history of heart disease/asthma.? He also reports smoking marijuana. Hospital Course Hospital Course Patient was admitted to the hospital further evaluation and management of shortness of breath in setting of congestive heart failure. She was started on aggressive IV diuresis. Echocardiogram was done which was consistent with severe cardiomyopathy with EF 15%, thinned out penaloza, moderate increased LA size, dilated RA, RV which was found to be mildly dehydrated and slightly diminished in ejection fraction with mild to moderate MR, mild TR. Cardiology was consulted. Patient gradually improved with IV diuresis. After achieving euvolemia she underwent cardiac catheterization on 01/13 which was consistent with nonischemic cardiomyopathy with mildly elevated PA pressures. Patient was gradually switched to guideline directed medical therapy. She is able to tolerate low-dose Entresto, spironolactone and diuresis. During hospitalization her urine drug screen came back positive for marijuana and amphetamines. Patient was counseled in detail about cessation of meth abuse. LifeVest has been ordered. She has been discharged in medically stable condition advised to follow-up with a primary care provider and with cardiology within next 1 month. She was counseled in detail about lifestyle modification along with fluid restriction. Physical Exam Const: COMMON NORMALS: patient oriented x3 and alert GENERAL APPEARANCE: cooperative ORIENTATION/CONSCIOUSNESS: Yes awake HENMT: COMMON NORMALS: oropharynx normal Neck/C-Spine: COMMON NORMALS: no JVD Resp: COMMON NORMALS: normal respiratory effort and clear to auscultation bilaterally AUSCULTATION: clear to auscultation bilaterally Cardio: COMMON NORMALS: no JVD, regular rhythm, S1 normal heart sound present, S2 normal heart sound present and No murmurs present (Cardio) RHYTHM: regular rhythm HEART SOUNDS: S1 normal heart sound present and S2 normal heart sound present GI: COMMON NORMALS: Normal to inspection, nondistended, normoactive bowel sounds present, Soft to palpation and non-tender PALPATION: Yes Soft to palpation Extremity: COMMON NORMALS: no joint enlargement and no pedal edema Neuro: COMMON NORMALS: patient oriented x3 and moves all extremities SENSORIUM/ORIENTATION: Yes alert Skin: COMMON NORMALS: no rashes or lesions noted GENERAL SKIN EXAM: no rashes or lesions noted Discharge Data Studies Completed and Pending Completed Studies During Hospitalization Category Date Time Status CTA chest [CT angio chest PE protcl [id number]] Stat Cat Scan 01/10/23 18:11 Completed MASS COMMUNICATIONS INSTRUCTOR request for service Routine Exams 01/13/23 07:00 Completed XR chest 1V portable [id number] Stat Exams 01/10/23 17:21 Completed CV. echo complete* [id number] Stat Ultrasound 01/11/23 09:14 Completed Pending at discharge Category Date Time Status Platelet Count Q2D Lab 01/15/23 04:00 Ordered Radiology Impressions Chest X-Ray 01/10/23 17:21 IMPRESSION: Irregular opacities in the lung bases bilaterally. Chest CTA 01/10/23 18:11 IMPRESSION: 1. No pulmonary embolus. 2. Cardiomegaly with bilateral pleural effusions and pulmonary vascular congestion consistent with CHF exacerbation. Laboratory Results WBC 7.15 10^3/uL (3.29-11.43) 01/14/23 04:11 RBC 5.25 10^6/uL (3.85-5.65) 01/14/23 04:11 Hgb 13.80 g/dL (11.27-16.99) 01/14/23 04:11 Hct 44.4 % (36-47) 01/14/23 04:11 MCV 84.6 fl (85-98) L 01/14/23 04:11 MCH 26.3 pg (27-33) L 01/14/23 04:11 MCHC 31.1 g/dL (30-55) 01/14/23 04:11 RDW 16.2 % (12.1-15.1) H 01/14/23 04:11 Plt Count 462 10^3/cmm (157-399) H 01/14/23 04:11 MPV 8.1 fL (7.4-10.4) 01/14/23 04:11 Neut % (Auto) 58.8 % 01/14/23 04:11 Lymph % (Auto) 27.4 % 01/14/23 04:11 [place] % (Auto) 10.6 % 01/14/23 04:11 Eos % (Auto) 2.5 % 01/14/23 04:11 Baso % (Auto) 0.3 % 01/14/23 04:11 Neut # (Auto) 4.20 10^3/uL (1.8-7.7) 01/14/23 04:11 Lymph # (Auto) 2.0 10^3/uL (0.8-4.8) 01/14/23 04:11 [place] # (Auto) 0.8 10^3/uL (0.2-0.9) 01/14/23 04:11 Eos # (Auto) 0.2 10^3/uL (0.0-0.8) 01/14/23 04:11 Baso # (Auto) 0.0 10^3/uL (0.0-0.1) 01/14/23 04:11 Nucleated RBC % (auto) 0 % 01/14/23 04:11 Nucleated RBCs # 0.0 /100WBC 01/14/23 04:11 APTT 31.1 SECONDS (23.9-36.7) D 01/13/23 08:55 Specimen Type Arterial 01/13/23 08:03 Sample Site Pa 01/13/23 08:03 Haroldo Test Pos 01/13/23 08:03 A-a O2 Gradient 5.0 mmHg (5-10) 01/13/23 08:03 Hematocrit 40.8 % (37-47) 01/13/23 08:03 Hgb O2 Saturation 49.8 % (95-100) L 01/13/23 08:03 Carboxyhemoglobin 1.3 %THgb (0.4-20.1) 01/13/23 08:03 Methemoglobin 0.9 % (0.4-1.5) 01/13/23 08:03 Total Hemoglobin 13.3 g/dL (12-16) 01/13/23 08:03 O2 Delivery Device Room air 01/13/23 08:03 FiO2 21.0 % 01/13/23 08:03 Sidewalk Inspector ID Emro 01/13/23 08:03 Sodium 133 mmol/L (136-145) L 01/14/23 04:11 Potassium 4.6 mmol/L (3.5-5.1) 01/14/23 04:11 Chloride 102 mmol/L (98-107) 01/14/23 04:11 Carbon Dioxide 23 mmol/L (22-29) 01/14/23 04:11 Anion Gap 12.6 (5-19) 01/14/23 04:11 BUN 14 mg/dL (6-20) 01/14/23 04:11 Creatinine 0.6 mg/dL (0.5-0.9) 01/14/23 04:11 GFR Calculation 106.7 mL/min (90-130) 01/14/23 04:11 Glucose 148 mg/dL (65-115) H 01/14/23 04:11 Estimat Average Glucose 114 01/11/23 04:26 Hemoglobin A1c 5.6 % (4.0-6.0) 01/11/23 04:26 Calculated Osmolality 279 mOsm/kg (285-295) L 01/14/23 04:11 Calcium 8.4 mg/dL (8.5-10.5) L 01/14/23 04:11 Phosphorus 4.8 mg/dL (2.5-4.5) H 01/11/23 04:26 Magnesium 2.0 mg/dL (1.7-2.3) 01/12/23 04:11 Iron 20 ug/dL (37-145) L 01/12/23 11:55 TIBC 402 mcg/dl 01/12/23 11:55 % Saturation 4.9 % (20-50) L 01/12/23 11:55 Unsat Iron Binding 382 ug/dL (112-347) H 01/12/23 11:55 Total Bilirubin 0.2 mg/dL (0.15-1.2) 01/14/23 04:11 AST 25 U/L (0-32) 01/14/23 04:11 ALT 25 U/L (0-33) 01/14/23 04:11 Alkaline Phosphatase 86 U/L (35-105) 01/14/23 04:11 Troponin T Gen 5 ng/L 281 ng/L (0-10) H* 01/11/23 04:26 Troponin T Baseline 26 ng/L (0-10) H 01/10/23 17:50 Troponin T 120 Minute 45.79 ng/L (0-10) H 01/10/23 19:57 Delta Troponin T 19.79 ABS# (0-10) H* 01/10/23 19:57 Troponin T Hi Sens 6Hr 152.8 ng/L (0-10) H 01/11/23 00:20 Troponin T Hi Sens 6Hr Delta 126.8 ng/L (0-12) H* 01/11/23 00:20 NT-Pro-B Natriuret Pep 40045 pg/mL (0-125) H 01/11/23 04:26 Total Protein 6.0 g/dL (6.6-8.7) L 01/14/23 04:11 Albumin 3.1 g/dL (3.5-5.2) L 01/14/23 04:11 Globulin 2.9 g/dL (1.3-4.6) 01/14/23 04:11 Triglycerides 66 mg/dL (0-150) 01/11/23 04:26 Cholesterol 174 mg/dL (0-200) 01/11/23 04:26 LDL Cholesterol, Calc 116 mg/dL (50-129) 01/11/23 04:26 HDL Cholesterol 45 mg/dL (60-100) L 01/11/23 04:26 LDL/HDL Ratio 2.58 RATIO (0.00-3.22) 01/11/23 04:26 Cholesterol/HDL Ratio 3.87 mg/dL (0.0-4.40) 01/11/23 04:26 Vitamin B12 370 pg/mL (232-1245) 01/12/23 04:11 Folate 9.5 ng/mL (4.8-37.3) 01/13/23 01:55 TSH 1.27 uIU/mL (0.27-4.20) 01/12/23 04:11 Urine Opiates Screen Negative ng/mL (Negative) 01/13/23 19:26 Ur Barbiturates Screen Negative ng/mL (Negative) 01/13/23 19:26 Ur Phencyclidine Scrn Negative ng/mL (Negative) 01/13/23 19:26 Ur Amphetamines Screen Positive ng/mL (Negative) H 01/13/23 19:26 U Benzodiazepines Scrn Positive ng/mL (Negative) H 01/13/23 19:26 Urine Cocaine Screen Negative ng/mL (Negative) 01/13/23 19:26 U Marijuana (THC) Screen Positive ng/mL (Negative) H 01/13/23 19:26 Coronavirus 229E (PCR) Not detected (NOT DETECT) 01/10/23 18:30 SARS-CoV-2 (PCR) Not detected (NOT DETECT) 01/10/23 18:30 Vitals Last Vital Signs Temp 97.5 F L 01/14/23 05:20 Pulse 97 01/14/23 08:21 Resp 23 H 01/14/23 08:21 BP 107/70 01/14/23 08:21 Pulse Ox 95 01/14/23 05:20 O2 Del Method Room Air 01/13/23 15:32 O2 Flow Rate 2 01/11/23 04:00 Discharge Plan Discharge Patient Disposition: Home Condition: Stable Prescriptions: New aspirin 81 mg Tablet,Delayed Release (Dr/Ec) 81 mg PO DAILY 30 Days Qty: 30 0RF metoprolol tartrate 25 mg Tablet 12.5 mg PO BID@0900,2100 30 Days Qty: 30 0RF spironolactone 25 mg Tablet 12.5 mg PO DAILY 30 Days Qty: 30 0RF Entresto 24-26 mg Tablet 1 tab PO BID Qty: 60 0RF furosemide 20 mg Tablet 20 mg PO DAILY@0800 Qty: 30 0RF Continued omeprazole magnesium [Prilosec OTC] 20 mg Tablet,Delayed Release (Dr/Ec) 20 mg PO DAILY Discharge Orders: Discharge Order (Routine); Ordered 01/14/23 Ordered By: Andrew Hanson Referrals: Calvin Sanderson MD [Physician] - Elsie Fisher FNP [Nurse Practitioner] - 3 weeks Discharge Diet: Cardiac Discharge Activity: Resume usual activity and Increase activity as tolerated Patient Instructions: Heart Catheterization (DC), Opioid Safety, Post Angiogram Home Care Instructions Activity Restrictions/Additional Instructions: She is to restrict fluid intake to less than 1500 cc, salt intake to less than 2 g daily. She was advised to check her weight daily at home. She is advised that her weight today would be her dry weight and if her body weight increases by around 5 pounds she is to take an extra dose of Lasix daily till her body weight comes down to her weight today. If she is not able to come down to her dry body weight in 1 week she is to call cardiology office for further recommendations. Patient was counseled in detail to take her medications regularly. Discharge Attestations Time Spent in Discharge Care*: greater than 30 min Status at Discharge: Cognitive status at discharge: cognitively intact, Behavioral status at discharge: cooperative, Functional status at discharge: independent ambulation, Overall status at discharge: patient is back to baseline Quality Metrics Clinical Quality Measures [ No reported AMI, CVA or VTE this stay] Coding Level of Care Code 94855 Total time (in minutes) for Discharge: 60 Diagnoses Acute on chronic systolic heart failure I50.23 Cardiomyopathy I42.9 Hypotension I95.9 LBBB (left bundle branch block) I44.7 Elevated troponin R79.89 GERD (gastroesophageal reflux disease) K21.9 Substance abuse F19.10
[2023-01-14] MEDS: famotidine 20 mg/2 mL INJ IVP (11:21)
[2023-01-14 12:56] VITALS: BP 107/70; PULSE 97; RESP 23; TEMP 37.1; O2SAT 95
== END 2023-01-14 14:33 | disposition home or self-care (01) | DRG 281 ==
LOC: ER 19:21 → CSU 20:26
PROVIDERS: Family Medicine; Internal Medicine; Internal Medicine Cardiovascular Disease; Admitting Provider Internal Medicine; Emergency Provider Emergency Medicine; Visit Provider Student in an Organized Health Care Education/Training Program
PROC: B2111ZZ Fluoroscopy of Multiple Coronary Arteries using Low Osmolar Contrast (ICD-10-PCS; principal; 2023-01-13 07:00)
DX: I50.23 Acute on chronic systolic (congestive) heart failure (principal); I21.A1 Myocardial infarction type 2; I42.8 Other cardiomyopathies; I27.20 Pulmonary hypertension, unspecified; K21.9 Gastro-esophageal reflux disease without esophagitis; F17.210 Nicotine dependence, cigarettes, uncomplicated; F41.0 Panic disorder [episodic paroxysmal anxiety]; F12.10 Cannabis abuse, uncomplicated; F15.10 Other stimulant abuse, uncomplicated; E86.0 Dehydration; I44.7 Left bundle-branch block, unspecified; I95.9 Hypotension, unspecified; I25.10 Atherosclerotic heart disease of native coronary artery without angina pectoris; F32.A Depression, unspecified
CPT/HCPCS: 36415; 36600; 71045; 71275; 80048; 80053; 80061; 80306; 82607; 82746; 82810; 83036; 83540; 83550; 83735; 83880; 84100; 84443; 84484; 85025; 85347; 85730; 87635; 93005; 93306; 93460; 94640; 96372; 96374; 96376; 99152; 99153; 99285; C1751; C1769; C1887; C1894; J1100; J1644; J1650; J1940; J2250; J3010; J3475; J3490; J7030; Q0163; Q9967

== ENCOUNTER → 2023-01-21 11:05 | Outpatient (BNVA) | payer MEDICAID, SELFPAY | PROVIDERS: Visit Provider Nurse Practitioner Family | DX: I50.23 Acute on chronic systolic (congestive) heart failure (principal); I42.8 Other cardiomyopathies | CPT/HCPCS: 36415; 80048; 83880 ==

== ENCOUNTER → 2023-02-02 15:44 | Outpatient (BNVA) | payer MEDICAID, SELFPAY | PROVIDERS: Visit Provider Nurse Practitioner Family | DX: I50.23 Acute on chronic systolic (congestive) heart failure (principal) | CPT/HCPCS: 36415; 80048; 83880 ==

== ENCOUNTER 2023-02-26 20:38 | Emergency (ER) | payer MEDICAID, SELFPAY ==
[2023-02-26 20:45] VITALS: BP 102/68; PULSE 102; RESP 24; TEMP 36.4; O2SAT 93; BMI 19.5
--- NOTE | 2023-02-26 20:46 | ECG_ITS ---
[facility] Test Date: 2023-02-26 Pat Name: Eunice Miranda Department: Room: Gender: Female Shank Threader: : 1975 Requested By: Colleen Garcia Order Number: [id number] Meme MD: Miranda Sidhu M.D. Measurements Intervals [place] Rate: 102 P: 51 [place]: 164 QRS: -64 QRSD: 161 T: 110 QT: 402 QTc: 525 Interpretive Statements SINUS TACHYCARDIA LEFT ATRIAL ENLARGEMENT [-0.15mV P-WAVE IN V1/V2] LEFT AXIS DEVIATION [QRS AXIS < -30] LEFT BUNDLE BRANCH BLOCK [120+ ms QRS DURATION, 80+ ms Q/S IN V1/V2, 85+ ms R IN I/aVL/V5/V6] Compared to ECG 01/11/2023 00:40:07 No significant changes Electronically Signed On 02-27-2023 6:51:19 STEWARD/STEWARDESS [employer]IRD CLASS by Miranda Sidhu M.D. [id number] f
--- NOTE | 2023-02-26 20:50 | XRR_ITS ---
PROCEDURE INFORMATION: Exam: XR Chest Exam date and time: 02/26/2023 9:06 PM Age: 47 years old Clinical indication: Shortness of breath; Additional info: SOB TECHNIQUE: Imaging protocol: Radiologic exam of the chest. Views: 1 view. COMPARISON: CT angio chest PE protcl [id number] 01/10/2023 6:27 PM FINDINGS: Lungs: There are scattered bands of linear atelectasis in the lung bases along with mild interstitial edema. Pleural spaces: No visible effusion on today's study. No pneumothorax. Heart/Mediastinum: The heart is significantly enlarged, similar to the recent chest CT. Bones/joints: Unremarkable. XR/XR chest 1V portable [id number] IMPRESSION: Cardiomegaly with bibasilar interstitial edema and atelectasis
--- NOTE | 2023-02-26 20:53 | ED_ITS ---
HPI - SOB/Dyspnea 2 General: Chief Complaint: Shortness of Breath/Dyspnea Stated Complaint: SOB Time Seen by Provider: 02/26/23 20:51 Source: patient Mode of arrival: ambulatory Limitations: no limitations History of Present Illness: HPI Narrative: 47-year-old female who has history of co ngestive heart failure she does wear LifeVest states over the last 2 days she has had some increasing dyspnea patient is currently resting comfortably pulse ox 97% on room air she has had some mild chest pains over the last 2 days denies any pain currently. Denies cough or fever Associated symptoms: Deny abdominal pain, chest pain, fever(s), nausea or vomiting Review of Systems 2 Const: Denies: fever(s), chills, body aches or change in appetite ENMT: Denies: throat pain or dental pain Card: Denies: chest pain Resp: Reports: dyspnea GI: Denies: abdominal pain, nausea, vomiting or diarrhea : Denies: dysuria Musc: Denies: neck pain or back pain Skin/Breast: Denies: rash Neuro: Denies: headache(s) PFSH ED 2 PFSH: Medical History Hypertension Varicose veins of both lower extremities Elevated troponin Smoker GERD (gastroesophageal reflux disease) Family History Father Suicide Mother No problems noted. Grandmother Heart attack Social History Smoking and tobacco/nicotine status: current every day tobacco/nicotine user Alcohol intake: former Substance/Drug Use: current Substance/Drug use frequency: few times a week Physical Exam 2 Const: COMMON NORMALS: no acute distress, patient oriented x3 and healthy appearing HENMT: COMMON NORMALS: normocephalic and atraumatic HEAD & SCALP: n ormocephalic and atraumatic Eye: COMMON NORMALS: Equal, round and reactive pupils present and EOMs intact bilaterally PUPIL: Yes Equal, round and reactive pupils present Neck/C-Spine: COMMON NORMALS: full ROM and supple Chest: COMMONS NORMALS: normal inspection of the chest and normal palpation of entire chest wall Resp: COMMON NORMALS: normal respiratory effort, No retractions, No use of accessory muscles and clear to auscultation bilaterally AUSCULTATION: clear to auscultation bilaterally Cardio: COMMON NORMALS: regular rate, regular rhythm and No murmurs present (Cardio) RATE: regular rate RHYTHM: regular rhythm Extremity: COMMON NORMALS: normal to inspection and full ROM Neuro: COMMON NORMALS: patient oriented x3, moves all extremities and no focal motor deficits Psych: COMMON NORMALS: mental status grossly normal, Normal thought process present and cooperative THOUGHT PROCESS: Normal thought process present Skin: COMMON NORMALS: no rashes or lesions noted and no wounds GENERAL SKIN EXAM: no rashes or lesions noted Course 2 Vital Signs: Vital signs: Vital Signs Temperature 97.6 F 02/26/23 20:45 Pulse Rate 96 02/26/23 22:05 Respiratory Rate 16 02/26/23 22:05 Blood Pressure 95/57 02/26/23 22:05 Pulse Oximetry 96 02/26/23 22:05 MDM - SOB/Dyspnea Medical Decision Making Patient presents with dyspnea likely CHF exacerbation give her IV Lasix here she is a normal pulse ox here is in no acute distress will have her double her Lasix over the next week 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 Medical Records I reviewed the patient's medical records. Lab Data I reviewed the patient's lab results. 02/26/23 20:56 02/26/23 20:56 Labs/Radiology: Radiology Impressions Chest X-Ray 02/26/23 20:50 IMPRESSION: Cardiomegaly with bibasilar interstitial edema and atelectasis Laboratory Results WBC 6.44 10^3/uL (3.29-11.43) 02/26/23 20:56 RBC 4.14 10^6/uL (3.85-5.65) 02/26/23 20:56 Hgb 10.70 g/dL (11.27-16.99) L 02/26/23 20:56 Hct 34.5 % (36-47) L 02/26/23 20:56 MCV 83.3 fl (85-98) L 02/26/23 20:56 MCH 25.8 pg (27-33) L 02/26/23 20:56 MCHC 31.0 g/dL (30-55) 02/26/23 20:56 RDW 18.3 % (12.1-15.1) H 02/26/23 20:56 Plt Count 443 10^3/cmm (157-399) H 02/26/23 20:56 MPV 8.0 fL (7.4-10.4) 02/26/23 20:56 Neut % (Auto) 56.0 % 02/26/23 20:56 Lymph % (Auto) 30.9 % 02/26/23 20:56 [place] % (Auto) 10.7 % 02/26/23 20:56 Eos % (Auto) 1.6 % 02/26/23 20:56 Baso % (Auto) 0.3 % 02/26/23 20:56 Neut # (Auto) 3.61 10^3/uL (1.8-7.7) 02/26/23 20:56 Lymph # (Auto) 2.0 10^3/uL (0.8-4.8) 02/26/23 20:56 [place] # (Auto) 0.7 10^3/uL (0.2-0.9) 02/26/23 20:56 Eos # (Auto) 0.1 10^3/uL (0.0-0.8) 02/26/23 20:56 Baso # (Auto) 0.0 10^3/uL (0.0-0.1) 02/26/23 20:56 Nucleated RBC % (auto) 0 % 02/26/23 20:56 Nucleated RBCs # 0.0 /100WBC 02/26/23 20:56 Sodium 138 mmol/L (136-145) 02/26/23 20:56 Potassium 4.3 mmol/L (3.5-5.1) 02/26/23 20:56 Chloride 103 mmol/L (98-107) 02/26/23 20:56 Carbon Dioxide 24 mmol/L (22-29) 02/26/23 20:56 Anion Gap 15.3 (5-19) 02/26/23 20:56 BUN 28 mg/dL (6-20) H 02/26/23 20:56 Creatinine 1.0 mg/dL (0.5-0.9) H 02/26/23 20:56 GFR Calculation 59.2 mL/min (90-130) L 02/26/23 20:56 Glucose 94 mg/dL (65-115) 02/26/23 20:56 Calculated Osmolality 291 mOsm/kg (285-295) 02/26/23 20:56 Calcium 8.9 mg/dL (8.5-10.5) 02/26/23 20:56 Total Bilirubin 0.2 mg/dL (0.15-1.2) 02/26/23 20:56 AST 26 U/L (0-32) 02/26/23 20:56 ALT 44 U/L (0-33) H 02/26/23 20:56 Alkaline Phosphatase 153 U/L (35-105) H 02/26/23 20:56 Troponin T Baseline 26 ng/L (0-10) H 02/26/23 20:56 Troponin T 120 Minute 25.70 ng/L (0-10) H 02/26/23 22:40 Delta Troponin T -0.30 ABS# (0-10) L 02/26/23 22:40 NT-Pro-B Natriuret Pep 76873 pg/mL (0-125) H 02/26/23 20:56 Total Protein 5.9 g/dL (6.6-8.7) L 02/26/23 20:56 Albumin 3.6 g/dL (3.5-5.2) 02/26/23 20:56 Globulin 2.3 g/dL (1.3-4.6) 02/26/23 20:56 All radiology interpretation(s) finalized by discharge EKG Data EKG 1: I personally reviewed and interpreted this EKG as follows: EKG Interpretation Date: 02/26/23 EKG interpretation time: 20:46 Interpretation: sinus tach hr [address] elevation qrs 161 qtc 461 no change from previous Discharge Plan Discharge Patient Disposition: Home Clinical Impression: Congestive heart failure Qualifiers: Heart failure type: unspecified Heart failure chronicity: acute Qualified Code(s): I50.9 - Heart failure, unspecified Condition: Stable Prescriptions: No Action Entresto 24-26 mg tablet 1 tab PO BID Qty: 60 5RF Hold Instructions: hypotension spironolactone 25 mg tablet 12.5 mg PO DAILY 30 Days Qty: 30 5RF furosemide 20 mg tablet 20 mg PO DAILY@0800 Qty: 30 5RF rabeprazole [AcipHex] 20 mg tablet,delayed release (DR/EC) 20 mg PO DAILY PRN (Reason: acid reflux) Qty: 30 1RF metoprolol tartrate 25 mg tablet 25 mg PO BID Qty: 60 5RF Discharge Orders: Discharge ED (Routine); Ordered 02/26/23 Ordered By: Colleen Garcia Referrals: Calvin Sanderson MD [Primary Care Provider] - Discharge Diet: Advance as tolerated Discharge Activity: Resume usual activity Patient Instructions: Heart Failure (ED) Coding Level of Care Code ED Sales Ledger Administrator for Dax Min
--- NOTE | 2023-02-26 21:03 | PC.NURSE ---
MD notified of BP of 99/72. MD gave verbal orders to give 20 mg of Lasix IVP.
[2023-02-26 21:09] LABS: Basophils % 0.3 %; Eosinophils # 0.1 10^3/uL (0.0-0.8); Eosinophils % 1.6 %; Hematocrit 34.5 % (36-47); Lymphocytes % 30.9 %; Mean Corpuscular Hemoglobin 25.8 pg (27-33); Mean Corpuscular Volume 83.3 fl (85-98); Monocytes # 0.7 10^3/uL (0.2-0.9); Monocytes % 10.7 %; Neutrophils # 3.61 10^3/uL (1.8-7.7); Nucleated Red Blood Cells % 0 %; Platelet Count 443 10^3/cmm (157-399); Red Blood Count 4.14 10^6/uL (3.85-5.65); Red Cell Distribution Width 18.3 % (12.1-15.1); White Blood Count 6.44 10^3/uL (3.29-11.43)
[2023-02-26] MEDS: FUROsemide 10 mg/mL SDV 2mL 20 MG IVP (21:12)
[2023-02-26 21:13] VITALS: BP 93/64; PULSE 99; RESP 16; O2SAT 93
[2023-02-26 21:33] LABS: Troponin(5th) Baseline 26 ng/L (0-10)
[2023-02-26 21:43] LABS: Alanine Aminotransferase 44 U/L (0-33); Albumin Level 3.6 g/dL (3.5-5.2); Alkaline Phosphatase 153 U/L (35-105); Anion Gap 15.3 (5-19); Aspartate Amino Transferase 26 U/L (0-32); Blood Urea Nitrogen 28 mg/dL (6-20); Calcium 8.9 mg/dL (8.5-10.5); Carbon Dioxide 24 mmol/L (22-29); Chloride 103 mmol/L (98-107); Globulin 2.3 g/dL (1.3-4.6); Glomerular Filtration Rate 59.2 mL/min (90-130); Glucose 94 mg/dL (65-115); NT Pro B Type Natriuretic Pept 28925 pg/mL (0-125); Osmolality Calculated 291 mOsm/kg (285-295); Potassium 4.3 mmol/L (3.5-5.1); Sodium 138 mmol/L (136-145); Total Bilirubin 0.2 mg/dL (0.15-1.2); Total Protein 5.9 g/dL (6.6-8.7)
[2023-02-26 22:05] VITALS: BP 95/57; PULSE 96; RESP 16; O2SAT 96
[2023-02-26] MEDS: FUROsemide 10 mg/mL SDV 4mL 40 MG IVP (22:05)
--- NOTE | 2023-02-26 22:39 | ECG_ITS ---
[facility] Test Date: 2023-02-26 Pat Name: Eunice Miranda Department: Room: Gender: Female Tuberculosis Specialist: : 1975 Requested By: Colleen Garcia Order Number: [id number] Meme MD: Miranda Sidhu M.D. Measurements Intervals [place] Rate: 98 P: 58 [place]: 177 QRS: -68 QRSD: 168 T: 102 QT: 408 QTc: 522 Interpretive Statements SINUS RHYTHM LEFT ATRIAL ENLARGEMENT [-0.15mV P-WAVE IN V1/V2] Left-axis deviation Left bundle-branch block Compared to ECG 02/26/2023 20:46:50 Sinus tachycardia no longer present Electronically Signed On 02-27-2023 6:54:09 ACTIONSCRIPT DEVELOPER by Miranda Sidhu M.D. [id number]
[2023-02-26 22:54] VITALS: BP 109/83; PULSE 101; O2SAT 93
[2023-02-26 23:00] VITALS: BP 109/77; PULSE 99
[2023-02-26 23:23] VITALS: BP 104/85; PULSE 100; RESP 18; O2SAT 93
== END 2023-02-26 23:23 | disposition home or self-care (01) ==
PROVIDERS: Emergency Provider Emergency Medicine; PCP Family Medicine Adult Medicine
DX: I11.0 Hypertensive heart disease with heart failure (principal); I50.9 Heart failure, unspecified; Z72.0 Tobacco use
CPT/HCPCS: 71045; 80053; 83880; 84484; 85025; 93005; 96374; 96375; 99285; J1940

== ENCOUNTER → 2023-03-11 12:42 | Outpatient (BNVA) | payer MEDICAID, SELFPAY | PROVIDERS: PCP Family Medicine Adult Medicine; Visit Provider Internal Medicine Cardiovascular Disease | DX: I10 Essential (primary) hypertension (principal); R06.02 Shortness of breath; I50.23 Acute on chronic systolic (congestive) heart failure; I44.7 Left bundle-branch block, unspecified; I42.8 Other cardiomyopathies; R03.0 Elevated blood-pressure reading, without diagnosis of hypertension | CPT/HCPCS: 36415; 80048; 83880 ==

== ENCOUNTER → 2023-04-14 13:08 | Outpatient (BNVA) | payer MEDICAID, SELFPAY | PROVIDERS: PCP Family Medicine Adult Medicine; Visit Provider Internal Medicine Cardiovascular Disease | DX: R06.02 Shortness of breath (principal); I10 Essential (primary) hypertension; Z79.899 Other long term (current) drug therapy | CPT/HCPCS: 36415; 80048; 83880 ==

== ENCOUNTER 2023-05-01 06:59 | Outpatient (CLI) | payer MEDICAID, SELFPAY ==
--- NOTE | 2023-05-01 07:15 | USCV_ITS ---
Eunice Miranad Age: 47 Gender: F : 1975 Exam Date: 05/01/2023 07:22 Ordering Phys: Ron Graham MD ([email or web address]) Technologist: Aniket Chahal [place] [facility] [place] Indication: cardiomyopathy BP: 99 / 52 HR: 104 Rhythm: Sinus Technical Quality: Adequate MEASUREMENTS (Male / Female) Normal Values 2D ECHO LVOT Diameter 2.0 cm LV Ejection Fraction MOD 2C 15.7 % LV Ejection Fraction 2C AL 13.8 % LA Diameter 3.5 cm LA Width 5.5 cm LA Height 5.9 cm RA Width 4.0 cm RA Height 5.0 cm Aorta at Sinotubular Diameter 1.8 cm IVC Diameter 1.8 cm M-MODE Aortic Annulus Diameter 2.5 cm LA Ao Ratio MM 1.5 MV E Point Septal Separation 2.5 cm DOPPLER Right Atrial Pressure 3.0 mmHg FINDINGS Left Ventricle Markedly dilated and thinned out left ventricle. Severe diffuse hypokinesia with a left ventricular ejection fraction of 14.5% Right Ventricle The right ventricle is normal in size and function. Right Atrium Mildly increased right atrial size. Left Atrium Mildly increased left atrial size. Mitral Valve Thickened mitral valve. Aortic Valve Thickened aortic valve. Tricuspid Valve No gross abnormalities noted no gross abnormalities noted Pulmonic Valve No gross abnormalities noted Pericardium Normal pericardium without effusion. Aorta Normal ascending aorta dimension. IVC Normal inferior vena cava. CONCLUSIONS Markedly dilated and thinned out left ventricle. Severe diffuse hypokinesia with a left ventricular ejection fraction of 14.5%. Mild biatrial enlargement Thickened aortic and mitral valves. There is no pericardial effusion. There are no intracardiac masses. Compared to the study from 01/11/2023, there may not be a significant change in the 2D findings Dr Ron Graham MD [facility] (Electronically Signed) Final Date: 18 May 2023 08:59 S
== END 2023-05-01 07:00 | disposition home or self-care (01) ==
LOC: RAD 07:00
PROVIDERS: PCP Family Medicine Adult Medicine; Visit Provider Internal Medicine Cardiovascular Disease
DX: I42.9 Cardiomyopathy, unspecified (principal); I08.0 Rheumatic disorders of both mitral and aortic valves
CPT/HCPCS: 93308

== ENCOUNTER → 2023-07-13 12:47 | Outpatient (BNVA) | payer MEDICAID, SELFPAY | PROVIDERS: PCP Family Medicine Adult Medicine; Visit Provider Internal Medicine Cardiovascular Disease | DX: R06.02 Shortness of breath (principal); I10 Essential (primary) hypertension | CPT/HCPCS: 80048; 83880 ==

== ENCOUNTER 2023-11-02 13:01 | Emergency (ER) | payer MEDICAID, SELFPAY ==
[2023-11-02 13:04] VITALS: BP 101/62; PULSE 78; TEMP 36.4; O2SAT 100; BMI 19.5
--- NOTE | 2023-11-02 13:11 | W.ED.SKABFB ---
HPI - Skin/Abscess/Foreign Bdy General: Chief complaint: Skin/Abscess/Foreign Body Stated complaint: Rash on neck Time Seen by Provider: 11/02/23 13:02 Source: patient Mode of arrival: ambulatory Limitations: no limitations History of Present Illness: Patient is a 48-year-old female who presents to ED today with a complaint of a rash on the anterior aspect of her neck that has been present for several weeks. She feels like rash has not changed at all over that time period. She states the rash sometimes will appear red in the mornings and when she gets out in the sun. Otherwise it seems very faded. She occasionally will notice a small amount of itching. No edema. MD complaint: rash Onset (ago): week(s) Tetanus up to date: yes Location: neck Severity: mild Relieving factors: none Exacerbating factors: none Context: none Associated symptoms: Deny chills or fever(s) Treatments prior to arrival: none Review of Systems Const: Denies: fever(s), chills, body aches, fatigue or malaise Musc: Denies: neck pain Skin/Breast: Reports: rash, pruritus and erythema; Denies: photosensitivity, skin pain, skin tenderness or skin swelling Neuro: Denies: headache(s), numbness in extremities, weakness in extremities, sensory changes or dizziness PFS ED PFSH: Medical History CKD (chronic kidney disease), stage II Congestive heart failure York Heart Association class III, [facility] Dyslipidemia (high LDL; low HDL) Hypertension Varicose veins of both lower extremities Smoker GERD (gastroesophageal reflux disease) Family History Father Suicide Mother No problems noted. Grandmother Heart attack Social History Smoking and tobacco/nicotine status: current every day tobacco/nicotine user (1 ppd) Alcohol intake: former Substance/Drug Use: current Substance/Drug use frequency: few times a week Physical Exam Const: COMMON NORMALS: no acute distress, average body habitus, patient oriented x3, no limitations, alert and well nourished GENERAL APPEARANCE: cooperative ORIENTATION/CONSCIOUSNESS: Yes awake, Yes oriented to person, Yes oriented to place and Yes oriented to time HENMT: COMMON NORMALS: normocephalic and atraumatic HEAD & SCALP: normocephalic and atraumatic FACE & SINUS: normal facial exam THROAT: posterior oropharynx normal Eye: GENERAL EYE: appearance normal, both eyes and all related structures Neck/C-Spine: COMMON NORMALS: full ROM, no lymphadenopathy, supple and no meningeal signs GENERAL: No anterior neck swelling and No submandibular swelling OTHER: very faint appearing areas of hyperpigmentation to anterior neck; no macular or papular formations; skin is very sun exposed in general-states she often using sun merino oil to try and merino in the sun Neuro: COMMON NORMALS: patient oriented x3 SENSORIUM/ORIENTATION: Yes alert, Yes oriented to person, Yes oriented to place and Yes oriented to time MENINGEAL SIGNS: Yes no meningeal signs Course Vital Signs: Vital signs: Vital Signs Temperature 97.5 F L 11/02/23 13:04 Pulse Rate 80 11/02/23 13:16 Respiratory Rate 16 11/02/23 13:16 Blood Pressure 106/58 11/02/23 13:16 Pulse Oximetry 97 11/02/23 13:16 Oxygen Delivery Me thod Room Air 11/02/23 13:16 MDM - Skin/Abscess/Foreign Bdy Medicial Decision Making Rash is very benign appearing. She was encouraged to follow-up with her primary care provider and they can refer her to dermatology if needed. She is cleared for discharge from an emergency standpoint. Medical Records I reviewed the patient's medical records. No radiology studies performed this visit Discharge Plan Discharge Patient Disposition: Home Clinical Impression: Hyperpigmentation of skin Condition: Stable Prescriptions: No Action metoprolol tartrate 50 mg tablet 50 mg PO BID Qty: 180 3RF sacubitril-valsartan 49-51 mg tablet 1 tab PO BID aspirin 81 mg tablet,delayed release (DR/EC) 81 mg PO DAILY Jardiance 10 mg tablet 10 mg PO DAILY 30 Days Qty: 30 5RF spironolactone 25 mg tablet 25 mg PO DAILY 30 Days Qty: 30 5RF Rx Instructions: increased to 25mg on 03/12/2023 metoclopramide HCl [Reglan] 10 mg tablet 10 mg PO Q6H PRN (Reason: nausea/acid reflux) Qty: 120 5RF potassium chloride 10 mEq capsule, extended release 10 meq PO DAILY Qty: 30 2RF furosemide 20 mg tablet See Rx Instructions .ROUTE .COMPLEX Qty: 30 3RF Dose Instruction: TAKE 1 TABLET BY MOUTH ONCE DAILY AT 8AM, ALTERNATE WITH 40MG Rx Instructions: TAKE 1 TABLET BY MOUTH ONCE DAILY AT 8AM, ALTERNATE WITH 40MG omeprazole 20 mg capsule,delayed release(DR/EC) 20 mg PO DAILY PRN (Reason: acid reflux) Qty: 30 1RF Discharge Orders: Discharge ED (Routine); Ordered 11/02/23 Ordered By: Honey Quintana Referrals: Calvin Sanderson MD [Primary Care Provider] - Activity Restrictions/Additional Instructions: As we discussed I feel you can follow-up with primary care for further evaluation of your rash. From there they can refer to dermatology if indicated. Coding Level of Care Code ED Clinical Nutrition Manager for Dax Min
[2023-11-02 13:16] VITALS: BP 106/58; PULSE 80; RESP 16; O2SAT 97
== END 2023-11-02 13:34 | disposition home or self-care (01) ==
PROVIDERS: Emergency Provider Physician Assistant; PCP Family Medicine Adult Medicine
DX: L81.9 Disorder of pigmentation, unspecified (principal)
CPT/HCPCS: 99281

== ENCOUNTER → 2024-01-13 12:01 | Outpatient (BNVA) | payer MEDICAID, SELFPAY | PROVIDERS: PCP Family Medicine Adult Medicine; Visit Provider Internal Medicine Cardiovascular Disease | DX: R06.02 Shortness of breath (principal) | CPT/HCPCS: 36415; 80048; 83880 ==

== ENCOUNTER → 2024-02-12 11:50 | Outpatient (BNVA) | payer MEDICAID, SELFPAY | PROVIDERS: PCP Family Medicine Adult Medicine; Visit Provider Nurse Practitioner Family | DX: K92.1 Melena (principal); I50.9 Heart failure, unspecified; I42.8 Other cardiomyopathies; Z95.810 Presence of automatic (implantable) cardiac defibrillator | CPT/HCPCS: 36415; 80053 ==

== ENCOUNTER 2024-02-16 16:18 | Outpatient (CLI) | payer MEDICAID, SELFPAY | END 2024-02-16 16:19 | disposition home or self-care (01) | LOC: LAB 16:19 | PROVIDERS: PCP Family Medicine Adult Medicine; Visit Provider Nurse Practitioner Family | DX: K92.1 Melena (principal) | CPT/HCPCS: 82274 ==

== ENCOUNTER 2024-04-26 06:13 | Outpatient (CLI) | payer MEDICAID, SELFPAY ==
--- NOTE | 2024-04-26 06:15 | USCV_ITS ---
Eunice Miranda Age: 48 Gender: F : 1975 Exam Date: 04/26/2024 06:33 Ordering Phys: Ron Graham MD ([email or web address]) Technologist: Exam Location: [facility] [place] Indication: dialated cardiomyopathy BP: 120 / 70 HR: 86 Rhythm: Sinus Technical Quality: Adequate MEASUREMENTS (Male / Female) Normal Values 2D ECHO LV Diastolic Diameter PLAX 6.4 cm 4.2 - 5.9 / 3.9 - 5.3 cm IVS Diastolic Thickness 1.1 cm 0.6 - 1.0 / 0.6 - 0.9 cm IVS Systolic Thickness 1.1 cm LVPW Diastolic Thickness 1.1 cm 0.6 - 1.0 / 0.6 - 0.9 cm LVPW Systolic Thickness 1.7 cm LVOT Diameter 2.0 cm LV Ejection Fraction 2D Teich 19.9 % LV Ejection Fraction MOD 4C 15.7 % LV Ejection Fraction MOD 2C 35.4 % LV Ejection Fraction 2C AL 35.8 % LA Diameter 2.6 cm RA Systolic Volume 4C AL 23.5 ml RA Systolic Volume 4C MOD 23.5 ml Aorta at Sinotubular Diameter 2.1 cm IVC Diameter 2.1 cm M-MODE LA Ao Ratio MM 1.5 AV Cusp Separation MM 1.7 cm DOPPLER AV Peak Velocity 127.0 cm/s LVOT Peak Velocity 91.0 cm/s AV Area Cont Eq vti 2.5 cm squared AV Area Cont Eq pk 2.3 cm squared MV Peak Velocity 118.0 cm/s MV Area PHT 7.4 cm squared Mitral E to A Ratio 0.8 TR Peak Velocity 211.0 cm/s TR Peak Gradient 17.8 mmHg TV Peak E Velocity 90.0 cm/s PV Peak Velocity 101.0 cm/s FINDINGS Left Ventricle Left ventricle is severely dilated. LV systolic function is severely reduced with EF of 15-20%. Severe global hypokinesis. Right Ventricle Grossly normal. Pacemaker lead is seen Right Atrium Normal in size Left Atrium Normal in size Mitral Valve Structurally normal mitral valve. Mild mitral regurgitation. Aortic Valve Structurally normal aortic valve. No significant stenosis. Tricuspid Valve Insufficient TR jet to evaluate RVSP. Pulmonic Valve Not well-visualized. Pericardium Normal Aorta Normal in size IVC Appears to be normal CONCLUSIONS Left ventricle is severely dilated. LV systolic function is severely reduced with EF of 15 to 20%. Mild mitral regurgitation. Compared to prior echocardiogram from 2023, no significant changes are seen Jamin Vazquez MD (Electronically Signed) Final Date: 01 May 2024 12:58 S
== END 2024-04-26 06:14 | disposition home or self-care (01) ==
PROVIDERS: PCP Family Medicine Adult Medicine; Visit Provider Internal Medicine Cardiovascular Disease
DX: R06.09 Other forms of dyspnea (principal); I51.7 Cardiomegaly; I34.0 Nonrheumatic mitral (valve) insufficiency; R93.1 Abnormal findings on diagnostic imaging of heart and coronary circulation
CPT/HCPCS: 93306

== ENCOUNTER → 2024-08-17 11:40 | Outpatient (BNVA) | payer MEDICAID, SELFPAY | PROVIDERS: PCP Family Medicine Adult Medicine; Visit Provider Internal Medicine Cardiovascular Disease | DX: R06.02 Shortness of breath (principal); Z45.02 Encounter for adjustment and management of automatic implantable cardiac defibrillator | CPT/HCPCS: 36415; 80048; 83880 ==

== ENCOUNTER 2024-11-28 15:02 | Emergency (ER) | payer MEDICAID, SELFPAY ==
--- OUTSIDE RECORDS SUMMARY | 2024-11-28 15:10 | XMS_ITS | Clinical Summary ---
Author Organization 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
--- OUTSIDE RECORDS SUMMARY | 2024-11-28 15:10 | XMS_ITS | Encounter Summary ---
Author Organization [email or web address] [facility] Address [address] [place] [address] Care Team Providers Care Practice Physician Name Role Phone Unavailable Primary Care Provider Unavailabl e Encounter Details Date Type Department Care Team (Latest Contact Info) Description 12/18/1999 Outpatient Historical [facility] Zack Reilly MD [address] [place] [address] Lowr limb vessel anomaly (Primary Dx) Social History Tobacco Use Types Packs/Day Years Used Date Smoking Tobacco: Never Assessed Comments Unknown Sex and Gender Information Value Date Recorded Sex Assigned at Not on file 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
--- OUTSIDE RECORDS SUMMARY | 2024-11-28 15:10 | XMS_ITS | Encounter Summary ---
Author Organization [facility] Address [address] [place] [address] Care Team Providers Care Saloon Keeper Name Role Phone Unavailable Primary Care Provider Unavailabl e Encounter Details Date Type Department Care Team (Latest Contact Info) Description 07/16/2004 Outpatient Historical [facility] Oral and Maxillo Surgery- [place] [address] [place] [id number] Yared Painter, PhD NO ADDRESS ON FILE SURGERY FOLLOWUP, UNSPEC (Primary Dx) Social History Tobacco Use Types Packs/Day Years Used Date Smoking Tobacco: Never Assessed Comments Unknown Sex and Gender Information Value Date Recorded Sex Assigned at Not on file 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
--- OUTSIDE RECORDS SUMMARY | 2024-11-28 15:10 | XMS_ITS | Encounter Summary ---
Author Organization [employer] [facility] Address [address] [place] [address] Care Team Providers Care Report Clerk Name Role Phone Unavailable Primary Care Provider Unavailabl e Encounter Details Date Type Department Care Team (Latest Contact Info) Description 02/05/2000 Outpatient Historical [facility] Zack Reilly MD [address] [place] [address] Follow-up examination following surgery (Primary Dx) Social History Tobacco Use Types Packs/Day Years Used Date Smoking Tobacco: Never Assessed Comments Unknown Sex and Gender Information Value Date Recorded Sex Assigned at Not on file Legal Sex Female 2:53 AM 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
--- OUTSIDE RECORDS SUMMARY | 2024-11-28 15:10 | XMS_ITS | Encounter Summary ---
Author Organization [facility] Address [address] [place] [address] Care Team Providers Care Dental Resident Name Role Phone Unavailable Primary Care Provider Unavailabl e Encounter Details Date Type Department Care Team (Latest Contact Info) Description 12/26/[address] [facility] Ear, Nose and Throat 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
--- OUTSIDE RECORDS SUMMARY | 2024-11-28 15:10 | XMS_ITS | Encounter Summary ---
Author Organization [employer] [facility] Address [address] [place] [address] Care Team Providers Care Long Wall Shear Operator Name Role Phone Unavailable Primary Care Provider Unavailabl e Encounter Details Date Type Department Care Team (Latest Contact Info) Description 01/22/2000 Outpatient Historical [facility] Zack Reilly MD [address] [place] [address] Follow-up examination following surgery (Primary Dx) Social History Tobacco Use Types Packs/Day Years Used Date Smoking Tobacco: Never Assessed Comments Unknown Sex and Gender Information Value Date Recorded Sex Assigned at Not on file 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
--- OUTSIDE RECORDS SUMMARY | 2024-11-28 15:10 | XMS_ITS | Encounter Summary ---
Author Organization [employer] [facility] Address [address] [place] [address] Care Team Providers Care Burlap Bag Sewer Name Role Phone Unavailable Primary Care Provider Unavailabl e Encounter Details Date Type Department Care Team (Latest Contact Info) Description 08/19/2000 Outpatient Historical [facility] Zack Reilly MD 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
--- OUTSIDE RECORDS SUMMARY | 2024-11-28 15:10 | XMS_ITS | Encounter Summary ---
Author Organization [employer] [facility] Address [address] [place] [address] Care Team Providers Care Instrument Repair Supervisor Name Role Phone Unavailable Primary Care Provider Unavailabl e Encounter Details Date Type Department Care Team (Latest Contact Info) Description 01/01/2000 Outpatient Historical [facility] Zack Reilly MD [address] [place] [address] Asymptomatic varicose veins (Primary Dx) Social History Tobacco Use Types Packs/Day Years Used Date Smoking Tobacco: Never Assessed Comments Unknown Sex and Gender Information Value Date Recorded Sex Assigned at Not on file 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
--- OUTSIDE RECORDS SUMMARY | 2024-11-28 15:10 | XMS_ITS | Clinical Summary ---
Author Organization [facility] Address [address] [place] [address] Care Team Providers Care Furrier Apprentice Name Role Phone Unavailable Primary Care Provider Unavailabl e Social History Tobacco Use Types Packs/Day Years Used Date Smoking Tobacco: Never Assessed Comments Unknown Sex and Gender Information Value Date Recorded Sex Assigned at Not on file Legal Sex Female 2:03 PM GAMING FLOOR SUPERVISOR Gender Identity Not on file Sexual Orientation [...]
--- OUTSIDE RECORDS SUMMARY | 2024-11-28 15:10 | XMS_ITS | Encounter Summary ---
Author Organization [facility] Address [address] [place] [address] Care Team Providers Care Foundry Metallurgist Name Role Phone Unavailable Primary Care Provider Unavailabl e Encounter Details Date Type Department Care Team (Late st Contact Info) Description 11/23/2006 Emergency [facility] Emergency Department [address] 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 INR 1.0 INTERFACE SYSTEM Comment: Expected Values for INR: DVT/PE Goal INR 2.5; range 2.0 - 3.0 Valve Replacement Tissue Goal INR 2.5; range 2.0 - 3.0 Mechanical Goal INR 3.0; range 2.5 - 3.5 POST-MN Goal INR 2.5; range 2.0 - 3.0 or Goal 3.0; range 2.5 - 3.5 Atrial Fibrillation Goal INR 2.5; range 2.0 - 3.0 Ischemic Stroke Goal INR 2.5; range 2.0 - 3.0 For additional information see Guidelines for Anticoagulation available from the pharmacy Jean Claude Mai PTT 27.7 21.6 - 35.6 Secs INTERFACE SYSTEM Comment: Therapeutic Range: Hi-level PE/DVT heparin protocol 80.1 -95.0 sec Lo-level PE/DVT heparin protocol 67.1 - 80.0 sec Cardiac Heparin Protocol 67.1 - 85.0 sec Neuro Heparin Protocol 67.1 - 80.0 sec As of 03/05/2006 note change in APTT Normal Range. 11/23/2006 2:05 AM CDT Benjamín Gee MD HEMATOLOGY ORDERABLES Alfonso josiah Performing Organization Address City/[facility] Co de Phone Number INTERFACE SYSTEM Refer to clinic/hospital department * BASIC METABOLIC PANEL (11/23/2006 2:05 AM CDT) GLUCOSE 101 70 - 110 mg/dL INTERFACE SYSTEM BUN 12 7 - 17 mg/dL INTERFACE SYSTEM CREATININE 0.7 0.7 - 1.2 mg/dL INTERFACE SYSTEM SODIUM 141 136 - 145 mEq/L INTERFACE SYSTEM POTASSIUM 3.7 3.5 - 5.0 mEq/L INTERFACE SYSTEM CHLORIDE 110 95 - 110 mEq/L INTERFACE SYSTEM CO2 22 22 - 32 mmol/l INTERFACE SYSTEM CALCIUM 9.9 8.4 - 10.5 mg/dL INTERFACE SYSTEM ANION GAP 13 9 - 20 mEq/L INTERFACE SYSTEM OSMOLALITY, CALCULATED 289 275 - 295 mOsm/Kg INTERFACE SYSTEM 11/23/2006 2:05 AM CDT Benjamín Gee MD CHEMISTRY ORDERABLES Edit ed INTERFACE SYSTEM Refer to clinic/hospital department * (ABNORMAL) CBC WITH DIFFERENTIAL (11/23/2006 2:05 AM CDT) WBC 8.8 4.5 - 11.0 K/ul INTERFACE SYSTEM RBC 4.49 4.20 - 5.40 Mil/ul INTERFACE SYSTEM HEMOGLOBIN 14.2 12.0 - 16.0 g/dL INTERFACE SYSTEM HEMATOCRIT 39.3 36.0 - 46.0 % INTERFACE SYSTEM MCV 87.5 84.0 - 103.0 Fl INTERFACE SYSTEM MCH 31.6 27.0 - 34.0 pg INTERFACE SYSTEM MCHC 36.1(H) 30.0 - 35.0 g/dL INTERFACE SYSTEM RDW 12.7 11.0 - 14.5 % INTERFACE SYSTEM PLATELETS 239 140 - 440 K/ul INTERFACE SYSTEM MPV 9.2 8.9 - 12.8 Fl INTERFACE SYSTEM NEUTROPHILS 65.7 42.2 - 75.2 % INTERFACE SYSTEM LYMPHOCYTES 24.8 24.0 - 44.0 % INTERFACE SYSTEM MONOCYTES 9.3 2.0 - 10.0 % INTERFACE SYSTEM EOSINOPHILS 0.1 0.0 - 7.0 % INTERFACE SYSTEM BASOPHILS 0.1 0.0 - 1.0 % INTERFACE SYSTEM NEUTROPHIL ABSOLUTE 5.8 2.0 - 8.0 K/ul INTERFACE SYSTEM LYMPHOCYTE ABSOLUTE 2.2 1.2 - 4.0 K/ul INTERFACE SYSTEM MONOCYTE ABSOLUTE 0.8(H) 0.1 - 0.6 K/ul INTERFACE SYSTEM EOSINOPHIL ABSOLUTE 0.0 0.0 - 0.7 K/ul INTERFACE SYSTEM BASOPHILS ABSOLUTE 0.0 0.0 - 0.2 K/ul INTERFACE SYSTEM 11/23/2006 2:05 AM CDT us Benjamín Gee MD HEMATOLOGY ORDERABLES Alfonso josiah INTERFACE SYSTEM Refer to clinic/hospital department * XR HAND 3+ VW LEFT (11/23/2006 12:59 AM CDT) Anatomical Region Laterality Modality Wrist / Hand Other 11/23/2006 12:5 9 AM CDT Narrative 11/23/2006 12:59 AM CDT Exam: Hand - LeftDate/Time of Exam: Nov 23, 2006 1:59:52 AMHistory: Injury. Findings: There appears to be some mild soft tissue swelling. There may be some bandage over the firstdigit. I see no acute bony abnormality. - Dictated By: Esperanza Gao M.D. Electronically Signed By: Esperanza Gao M.D. Date Signed: 11/24/06 Procedure Note 02/18/2009 Exam: Hand - LeftDate/Time of Exam: Nov 23, 2006 1:59:52 AMHistory: Injury. Findings: There appears to be some mild soft tissue swelling. There may be somebandage over the firstdigit. I see no acute bony abnormality. - Dictated By: Esperanza Gao M.D. Electronically Signed By: Esperanza Gao M.D. Date Signed: 11/24/06 Benjamín Gee MD DIAGNOSTIC IMAGING ORDERA BLES Final Result documented in this encounter Visit Diagnoses Diagnosis Open wound of hand except finger(s) alone, without mention of complication- Primary documented in this encounter
--- OUTSIDE RECORDS SUMMARY | 2024-11-28 15:10 | XMS_ITS | Encounter Summary ---
Author Organization [facility] Address [address] [place] [address] Care Team Providers Care Sandal Parts Assembler Name Role Phone Unavailable Primary Care Provider Unavailabl e Encounter Details Date Type Department Care Team (Late st Contact Info) Description 07/08/2004 Outpatient Historical [facility] Oral and Maxillo Surgery- [address] [place] [address] Social History Tobacco Use Types Packs/Day Years Used Date Smoking Tobacco: Never Assessed Comments Unknown Sex and Gender Information Value Date Recorded Sex Assigned at Not on file Legal Sex Female 2:53 AM PRIMARY THERAPIST Gender Identity Not on file Sexual Orientation Not on file documented as of this encounter Plan of Treatment Not on file documented as of this encounter Visit Diagnoses Not on filedocumented in this encounter
--- OUTSIDE RECORDS SUMMARY | 2024-11-28 15:10 | XMS_ITS | Patient Health Record ---
Author Organization [facility] Address [address] [place], [place] [address] Care Team Providers Care Tube Dispatcher Name Role Phone Dayo CORBIN, Gillian Primary Care Provider Unavailab gloria Salvador MD, Regan Unavailable [phone] Talha CORBIN, Fahad Unavailable Unavailable Allergies Allergen (clinical drug ingredient) Drug/Non Drug Allergy documented on EMR Reaction Allergy Type Onset Date Status penicillin hives Drug Allergy Active Reason For Referral No Information Medications Medication SIG (Take, Route, Fr equency, Duration) Notes Start Date End Date Status aspirin 81 mg 1 tab(s) orally once a day; Duration: 30 day(s) Active dimenhyDRINATE 50 mg 1 tab(s) orally PRN ; Duration: 5 day(s) Active Tylenol 500 mg 2 tab(s) orally Prn; Duration: 5 day(s) Active PriLOSEC OTC 20 mg 1 cap(s) orally candy y; Duration: 30 day(s) Active Fish Oil 2000 mg as directed Active Lorcet 10/650 1 tab(s) PO orally Q 6H prn pain; Duration: 30 day(s) Active Plan Of Treatment No Information Medical (General) History Medical History History ICD Code Neck pain Right shoulder pain Carpal tunnel syndrome-bilateral Cubital tunnel syndrome-bilateral Shoulder impingement-right Hospitalization History Reason Date(Month/Year) D&C 1992
[2024-11-28 15:13] VITALS: BP 120/68; PULSE 72; RESP 16; TEMP 36.7; O2SAT 96; BMI 19.5
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
--- NOTE | 2024-11-28 15:16 | XRR_ITS ---
PROCEDURE INFORMATION: Exam: XR Chest Exam date and time: 11/28/2024 3:23 PM Age: 49 years old Clinical indication: Dyspnea; Prior surgery; Surgery date: 6+ months; Surgery type: Pacemaker; Additional info: SOB TECHNIQUE: Imaging protocol: Radiologic exam of the chest. Views: 1 view. COMPARISON: CR (CHEST, ) 02/26/2023 9:06 PM FINDINGS: Tubes, catheters and devices: AICD projects in satisfactory location. Lungs: Unremarkable. No consolidation. Pleural spaces: Unremarkable. No pleural effusion. No pneumothorax. Heart/Mediastinum: Unremarkable. No cardiomegaly. Bones/joints: Unremarkable. XR/XR chest 1V portable [id number] IMPRESSION: No acute cardiopulmonary process.
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
== END 2024-11-28 16:17 | disposition home or self-care (01) ==
PROVIDERS: Emergency Provider Emergency Medicine; PCP Family Medicine Adult Medicine
DX: R51.9 Headache, unspecified (principal); M54.6 Pain in thoracic spine; Z79.82 Long term (current) use of aspirin; Z72.0 Tobacco use; E78.5 Hyperlipidemia, unspecified; I13.0 Hypertensive heart and chronic kidney disease with heart failure and stage 1 through stage 4 chronic kidney disease, or unspecified chronic kidney disease; N18.2 Chronic kidney disease, stage 2 (mild); I50.9 Heart failure, unspecified
CPT/HCPCS: 70450; 71045; 72072; 99284

== ENCOUNTER → 2025-02-15 11:41 | Outpatient (BNVA) | payer MEDICAID, SELFPAY | PROVIDERS: PCP Family Medicine Adult Medicine; Visit Provider Internal Medicine Cardiovascular Disease | DX: Z45.02 Encounter for adjustment and management of automatic implantable cardiac defibrillator (principal) | CPT/HCPCS: 93296 ==

== ENCOUNTER 2025-02-24 12:41 | Inpatient (IN) | payer OTHER, MEDICAID, SELFPAY ==
--- OUTSIDE RECORDS SUMMARY | 2025-02-24 12:46 | XMS_ITS | Encounter Summary ---
Author Organization [facility] Address [address] [place] [address] Care Team Providers Care Inclusion Special Educator Name Role Phone Unavailable Primary Care Provider Unavailabl e Encounter Details Date Type Department Care Team (Late st Contact Info) Description 07/08/2004 Outpatient Historical [facility] Oral and Maxillo Surgery- [address] [place] [address] Social History Tobacco Use Types Packs/Day Years Used Date Smoking Tobacco: Never Assessed Comments Unknown Sex and Gender Information Value Date Recorded Sex Assigned at Not on file Legal Sex Female 2:53 AM 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
--- OUTSIDE RECORDS SUMMARY | 2025-02-24 12:46 | XMS_ITS | Encounter Summary ---
Author Organization [facility] Address [address] [place] [address] Care Team Providers Care Behavioral Sciences Instructor Name Role Phone Unavailable Primary Care Provider Unavailabl e Encounter Details Date Type Department Care Team (Latest Contact Info) Description 07/16/2004 Outpatient Historical [facility] Oral and Maxillo Surgery- [place] [address] [place] [address] Yared Painter, PhD NO ADDRESS ON FILE SURGERY FOLLOWUP, UNSPEC (Primary Dx) Social History Tobacco Use Types Packs/Day Years Used Date Smoking Tobacco: Never Assessed Comments Unknown Sex and Gender Information Value Date Recorded Sex Assigned at Not on file Legal Sex Female 2:53 AM 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
--- OUTSIDE RECORDS SUMMARY | 2025-02-24 12:46 | XMS_ITS | Clinical Summary ---
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
--- OUTSIDE RECORDS SUMMARY | 2025-02-24 12:46 | XMS_ITS | Encounter Summary ---
Author Organization [employer] [facility] Address [address] [place] [address] Care Team Providers Care Special Education Administrator Name Role Phone Unavailable Primary Care Provider Unavailabl e Encounter Details Date Type Department Care Team (Latest Contact Info) Description 08/19/2000 Outpatient Historical [facility] Zack Reilly MD [address] [place] [address] Asymptomatic varicose veins (Primary Dx) Social History Tobacco Use Types Packs/Day Years Used Date Smoking Tobacco: Never Assessed Comments Unknown Sex and Gender Information Value Date Recorded Sex Assigned at Not on file 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
--- OUTSIDE RECORDS SUMMARY | 2025-02-24 12:46 | XMS_ITS | Encounter Summary ---
Author Organization [employer] [facility] Address [address] [place] [address] Care Team Providers Care Project Manager Industrial Name Role Phone Unavailable Primary Care Provider Unavailabl e Encounter Details Date Type Department Care Team (Latest Contact Info) Description 12/18/1999 Outpatient Historical [facility] Zack Reilly MD [address] [place] [address] Lowr limb vessel anomaly (Primary Dx) Social History Tobacco Use Types Packs/Day Years Used Date Smoking Tobacco: Never Assessed Comments Unknown Sex and Gender Information Value Date Recorded Sex Assigned at Not on file Legal Sex Female 2:53 AM CLINICAL REVIEW SPECIALIST Gender Identity Not on file Sexual Orientation Not on file documented as of this encounter Plan of Treatment Not on file documented as of this encounter Visit Diagnoses Diagnosis 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
--- OUTSIDE RECORDS SUMMARY | 2025-02-24 12:46 | XMS_ITS | Encounter Summary ---
Author Organization [employer] [facility] Address [address] [place] [address] Care Team Providers Care Legal Officer Name Role Phone Unavailable Primary Care Provider Unavailabl e Encounter Details Date Type Department Care Team (Latest Contact Info) Description 01/01/2000 Outpatient Historical [facility] Zack Reilly MD [address] [place] [address] Asymptomatic varicose veins (Primary Dx) Social History Tobacco Use Types Packs/Day Years Used Date Smoking Tobacco: Never Assessed Comments Unknown Sex and Gender Information Value Date Recorded Sex Assigned at Not on file 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
--- OUTSIDE RECORDS SUMMARY | 2025-02-24 12:46 | XMS_ITS | Clinical Summary ---
Author Organization [facility] Address [address] [place] [address] Care Team Providers Care Patient Financial Representative Name Role Phone Unavailable Primary Care Provider Unavailabl e Social History Tobacco Use Types Packs/Day Years Used Date Smoking Tobacco: Never Assessed Comments Unknown Sex and Gender Information Value Date Recorded Sex Assigned at Not on file Legal Sex Female 2:03 PM STATISTICAL DEVELOPER Gender Identity Not on file Sexual Orientation [...]
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
--- OUTSIDE RECORDS SUMMARY | 2025-02-24 12:46 | XMS_ITS | Encounter Summary ---
Author Organization [employer] [facility] Address [address] [place] [address] Care Team Providers Care Director Of Casino Marketing Name Role Phone Unavailable Primary Care Provider Unavailabl e Encounter Details Date Type Department Care Team (Latest Contact Info) Description 01/22/2000 Outpatient Historical [facility] Zack Reilly MD [address] [place] [address] Follow-up examination following surgery (Primary Dx) Social History Tobacco Use Types Packs/Day Years Used Date Smoking Tobacco: Never Assessed Comments Unknown Sex and Gender Information Value Date Recorded Sex Assigned at Not on file Legal Sex Female 2:53 AM TEST SPECIALIST Gender Identity Not on file Sexual Orientation Not on file documented as of this encounter Plan of Treatment Not on file documented as of this encounter Visit Diagnoses Diagnosis Follow-up examination following surgery- Primary documented in this encounter
--- OUTSIDE RECORDS SUMMARY | 2025-02-24 12:46 | XMS_ITS | Encounter Summary ---
Author Organization [facility] Address [address] [place] [address] Care Team Providers Care Cso Name Role Phone Unavailable Primary Care Provider Unavailabl e Encounter Details Date Type Department Care Team (Latest Contact Info) Description 12/26/1999 Outpatient Historical [facility] Ear, Nose and Throat 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
--- OUTSIDE RECORDS SUMMARY | 2025-02-24 12:46 | XMS_ITS | Encounter Summary ---
Author Organization [employer] [facility] Address [address] [place] [address] Care Team Providers Care Coal Cutting Machine Operator Name Role Phone Unavailable Primary Care Provider Unavailabl e Encounter Details Date Type Department Care Team (Latest Contact Info) Description 02/05/2000 Outpatient Historical [facility] Zack Reilly MD [address] [place] [address] Follow-up examination following surgery (Primary Dx) Social History Tobacco Use Types Packs/Day Years Used Date Smoking Tobacco: Never Assessed Comments Unknown Sex and Gender Information Value Date Recorded Sex Assigned at Not on file Legal Sex Female 2:53 AM BEAUTY SHOP MANAGER Gender Identity Not on file Sexual Orientation Not on file documented as of this encounter Plan of Treatment Not on file documented as of this encounter Visit Diagnoses Diagnosis Follow-up examination following surgery- Primary documented in this encounter
[2025-02-24 12:48] VITALS: BP 118/60; PULSE 87; RESP 16; TEMP 36.9; O2SAT 96; BMI 19.5
--- NOTE | 2025-02-24 12:54 | PC.NURSE ---
ELSA TEAM NOTIFIED @ 9255.
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
[2025-02-24 15:41] VITALS: BP 108/66; PULSE 69; RESP 20; TEMP 37.2; O2SAT 99
[2025-02-24 15:48] LABS: Hematocrit 44.0 % (36-47); Hemoglobin 14.60 g/dL (11.27-16.99); Mean Corpuscular HGB Conc 33.2 g/dL (30-55); Mean Corpuscular Hemoglobin 30.4 pg (27-33); Mean Corpuscular Volume 91.7 fl (85-98); Nucleated Red Blood Cells % 0 %; Platelet Count 288 10^3/cmm (157-399); Red Blood Count 4.80 10^6/uL (3.85-5.65); White Blood Count 5.47 10^3/uL (3.29-11.43)
--- NOTE | 2025-02-24 15:57 | PC.NURSE ---
96 hr rights reviewed with pt @[id number] with assistance of [facility] officer [facility] Mauricio. Pt verbalized understanding to 96 hr rights. Copy of rights was provided to pt.
[2025-02-24 15:58] LABS: Alanine Aminotransferase 17 U/L (0-33); Albumin Level 4.5 g/dL (3.5-5.2); Alkaline Phosphatase 89 U/L (35-105); Anion Gap 12.7 (5-19); Aspartate Amino Transferase 20 U/L (0-32); Blood Urea Nitrogen 11 mg/dL (6-20); Calcium 9.3 mg/dL (8.5-10.5); Carbon Dioxide 27 mmol/L (22-29); Chloride 102 mmol/L (98-107); Globulin 2.9 g/dL (1.3-4.6); Glucose 100 mg/dL (65-115); Osmolality Calculated 285 mOsm/kg (285-295); Potassium 3.7 mmol/L (3.5-5.1); Sodium 138 mmol/L (136-145); Total Protein 7.4 g/dL (6.6-8.7)
[2025-02-24 16:01] LABS: Acetaminophen < 5.0 ug/mL (10-30); Alcohol Level < 10 mg/dL (0-10); Salicylate < 0.3 mg/dL (3-10)
[2025-02-24 16:32] VITALS: BP 108/66; PULSE 69; RESP 20; TEMP 37.2; O2SAT 99
[2025-02-24 16:35] VITALS: BP 108/66; PULSE 69; RESP 20; TEMP 37.2; O2SAT 99
--- NOTE | 2025-02-24 16:41 | ECG_ITS ---
[facility] Date: 2025-02-24 Pat Name: Eunice Miranda Department: Room: 170 Gender: Female [place]: : 1975 Requested By: Honey Quintana Order Number: [id number] Valentine MD: Otis Ramos M.D. Measurements Intervals [place] Rate: 73 P: 76 [place]: 172 QRS: -48 QRSD: 148 T: 106 QT: 438 QTc: 485 Interpretive Statements ELECTRONIC VENTRICULAR PACEMAKER SINUS RHYTHM WITH VENTRICULAR PACING ABNORMAL RHYTHM ECG Compared to ECG 02/26/2023 22:39:03 VENTRICULAR PACING NOW EVIDENT Electronically Signed On 02-25-2025 17:36:42 EVENT LIGHTING SPECIALIST by Otis Ramos M.D. [email or web address]
[2025-02-24 16:52] LABS: PCP Screen Urine Negative (Negative)
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
[2025-02-24 21:11] VITALS: BP 97/61; PULSE 92; RESP 17; TEMP 36.8; O2SAT 100
[2025-02-25 06:00] VITALS: BP 108/51; PULSE 102; RESP 18; TEMP 36.8; O2SAT 96
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
--- NOTE | 2025-02-25 09:06 | PC.NURSE ---
PRN PROTONIX 40 MG GIVEN PO PER PT C/O ACID REFLUX
[2025-02-25 14:00] VITALS: BP 94/61; PULSE 113; RESP 16; TEMP 37.1; O2SAT 97
[2025-02-25] MEDS: DAPAGLIFLOZIN 5 MG TABLET PO (17:50)
[2025-02-25 20:48] VITALS: BP 104/68; PULSE 81; RESP 19; TEMP 36.8; O2SAT 93
[2025-02-26 05:21] VITALS: BMI 19.3
[2025-02-26 06:00] VITALS: BP 98/62; PULSE 80; RESP 17; TEMP 36.9; O2SAT 96
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
[2025-02-26] MEDS: DAPAGLIFLOZIN 5 MG TABLET PO (09:52)
[2025-02-26 14:00] VITALS: BP 93/46; PULSE 69; RESP 18; TEMP 36.8; O2SAT 99
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
[2025-02-26 20:30] VITALS: BP 92/57; PULSE 60; RESP 16; TEMP 37; O2SAT 98
[2025-02-27 06:00] VITALS: BP 117/78; PULSE 66; RESP 16; O2SAT 96
[2025-02-27] MEDS: DAPAGLIFLOZIN 5 MG TABLET PO (08:13)
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
[2025-02-27 13:55] VITALS: BP 117/74; PULSE 66; RESP 16; TEMP 37; O2SAT 98
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
--- NOTE | 2025-02-27 20:48 | PC.NURSE ---
Pt. potentially needs a med consult for hypotension.
[2025-02-27 20:49] VITALS: BP 83/49; PULSE 77; RESP 17; TEMP 36.6; O2SAT 98
[2025-02-28 06:00] VITALS: BP 92/61; PULSE 86; RESP 17; TEMP 36.4; O2SAT 97
--- NOTE | 2025-02-28 06:23 | PC.NURSE ---
While getting her vitals taken at the nurses station pt. states that she fell in her room when she was going to the bathroom. She further states that she didn't hit her head and that she thought she was fine so she didn't bother telling anybody and finished going to the restroom and then returned to her bed.
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
[2025-02-28] MEDS: DAPAGLIFLOZIN 5 MG TABLET PO (09:04)
[2025-02-28 14:00] VITALS: BP 87/51; PULSE 68; RESP 17; TEMP 36.3; O2SAT 98
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
[2025-02-28 20:23] VITALS: BP 90/52; PULSE 60; RESP 16; TEMP 36.9; O2SAT 97
[2025-03-01 06:00] VITALS: BP 98/61; PULSE 88; RESP 17; TEMP 36.3; O2SAT 96
[2025-03-01] MEDS: DAPAGLIFLOZIN 5 MG TABLET PO (10:10)
--- NOTE | 2025-03-01 11:08 | PC.NURSE ---
HISTORIC INTERPRETER was in pt. room and found 2 nicotine lozenges that had not been in the pt.'s mouth yet. Pt. objected when HISTORIC INTERPRETER removed them. [employer] Counselor informed. Pt. has nicotine patch one, and it is agreed to educate pt. that is not appropriate and now pt. is only to get a lozenge Q 4 hrs.
[2025-03-01 14:00] VITALS: BP 70/42; PULSE 71; RESP 18; TEMP 36.6; O2SAT 97
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
[2025-03-01 20:06] VITALS: BP 89/52; PULSE 74; RESP 16; TEMP 36.4; O2SAT 95
--- NOTE | 2025-03-01 20:47 | PC.NURSE ---
Nicotine patch removed at 2044.
[2025-03-02 05:07] VITALS: BP 97/59; PULSE 86; RESP 16; TEMP 36.5; O2SAT 98
[2025-03-02] MEDS: paliperidone ER 6 mg Tablet PO (08:41)
[2025-03-02] MEDS: DAPAGLIFLOZIN 5 MG TABLET PO (08:41)
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
[2025-03-02 14:00] VITALS: BP 96/52; PULSE 73; RESP 16; O2SAT 98
[2025-03-02 20:40] VITALS: BP 99/60; PULSE 61; RESP 16; TEMP 37; O2SAT 97
[2025-03-03 06:00] VITALS: BP 100/61; PULSE 68; RESP 17; TEMP 36.6; O2SAT 99
[2025-03-03] MEDS: paliperidone ER 6 mg Tablet PO (09:19)
[2025-03-03] MEDS: DAPAGLIFLOZIN 5 MG TABLET PO (09:19)
[2025-03-03 09:24] VITALS: BP 94/70; BP 96/63
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
[2025-03-03 14:00] VITALS: BP 103/66; PULSE 82; RESP 18; TEMP 37; O2SAT 99
[2025-03-03 20:29] VITALS: BP 93/52; PULSE 77; RESP 17; TEMP 36.6; O2SAT 95
[2025-03-04 04:40] VITALS: BP 95/50; PULSE 84; RESP 17; TEMP 36.3; O2SAT 100
[2025-03-04] MEDS: paliperidone ER 6 mg Tablet PO (10:31)
[2025-03-04] MEDS: DAPAGLIFLOZIN 5 MG TABLET PO (10:31)
[2025-03-04 10:43] VITALS: BP 90/44; PULSE 96
--- NOTE | 2025-03-04 12:33 | P.CONIM_ITS ---
Providers/Reason For Consult 2 Consulting Physician/Specialty*: Hospitalist Reason for Consult*: Medical management for hypotension Attending Physician: Rasheed Sin MD Primary Care Provider: Calvin Sanderson MD History of Present Illness History of Present Illness Eunice Miranda is a 49 year old female with a history of CHF, pacemaker, hypertension, polysubstance abuse, admitted to psych unit for psychosis. Hospitalist team consulted for medical management with hypotensive episodes. Patient states that her blood pressure is typically low, that she has had episodes of passing out previously, but is currently asymptomatic. Patient denies current headache, hallucinations, nausea, vomiting, diarrhea, abdominal pain, syncope, dark or tarry stools, illness, or visual disturbances. Review of Systems 2 General: Reports: 10 or more systems reviewed and unremarkable except in HPI and below Medications/Allergies Home Medications ?Medication ?Instructions ?Recorded ?Confirmed ?Last Taken ?Type aspirin 81 mg tablet,delayed 81 mg PO DAILY 04/14/23 1 04/26/24 Unknown History release empagliflozin 10 mg tablet See Rx Instructions .Route 03/03/24 02/24/25 Unknown Rx (Jardiance) .COMPLEX #90 tabs spironolactone 25 mg tablet See Rx Instructions .Route 03/03/24 02/24/25 Unknown Rx .COMPLEX #90 tabs potassium chloride 10 mEq 10 meq PO DAILY #30 caps 02/24/25 Unknown Rx capsule,extended release omeprazole 20 mg capsule,delayed 20 mg PO DAILY PRN ac id reflux #90 08/09/24 02/24/25 Unknown Rx release caps sacubitril 97 mg-valsartan 103 mg 1 tab PO BID #60 tab s 09/12/24 02/24/25 Unknown Rx tablet (Entresto) metoclopramide HCl 10 mg tablet See Rx Instructions .R oute 10/12/24 02/24/25 Unknown Rx .COMPLEX #120 tabs furosemide 20 mg tablet 20 mg PO DAILY #30 tabs 08/2 02/24/25 Unknown Rx metoprolol tartrate 100 mg tablet 100 mg PO BID #180 t abs 12/21/24 02/24/25 Unknown Rx Allergies Allergy/AdvReac Type Severity Reaction Status Date / Time Penicillins Allergy Unresponsiv Verified 08/17/24 10:41 e Current Medications Generic Name Dose Route Start Last Admin Trade Name Freq PRN Reason Stop Dose Admin Acetaminophen 650 mg 02/24/25 16:35 03/03/25 20:51 Acetaminophen 325 Mg Tablet PO 650 mg Q4H PRN Administration MILD PAIN Aspirin 81 mg 02/26/25 09:00 03/04/25 10:31 Aspirin 81 Mg Ec Tablet PO 81 mg DAILY CHANNING Administration Furosemide 20 mg 02/25/25 09:00 03/04/25 12:06 Furosemide 20 Mg Tablet PO Not Given DAILY CHANNING Hydroxyzine Pamoate 50 mg 02/24/25 15:41 03/04/25 04:32 Hydroxyzine 25 Mg Capsule PO 50 mg Q6H PRN Administration ANXIETY Ibuprofen 600 mg 02/24/25 16:35 03/04/25 04:32 Ibuprofen 600 Mg Tablet PO 600 mg Q6H PRN Administration MODERATE PAIN Metoprolol Tartrate 100 mg 02/25/25 18:00 03/04/25 12:06 Metoprolol Tartrate 50 Mg Tablet PO Not Given BID CHANNING Nicotine 1 patch 02/24/25 15:41 03/03/25 10:24 Nicotine 21 Mg Patch TRANSDERMA 1 patch DAILY PRN Administration NICOTINE WITHDRAWAL Nicotine Polacrilex 2 mg 02/24/25 16:35 03/01/25 14:05 Nicotine 2 Mg Gum BUCCAL 2 mg Q2H PRN Administration NICOTINE WITHDRAWAL Nicotine Polacrilex 4 mg 02/24/25 16:38 03/04/25 04:33 Nicotine 4 Mg Lozenge MUCOUS MEM 4 mg Q2H PRN Administration NICOTINE CRAVINGS Paliperidone 6 mg 03/02/25 09:00 03/04/25 10:31 Paliperidone Er 6 Mg Tablet PO 6 mg DAILY CHANNING Administration Pantoprazole Sodium 40 mg 02/25/25 05:38 03/03/25 18:[address] 40 Mg Tablet PO 40 mg DAILY PRN Administration acid reflux Potassium Chloride 10 meq 02/25/25 09:00 03/04/25 10:32 Potassium Chloride Er 10 Meq Tablet PO 10 meq DAILY CHANNING Administration Sacubitril/Valsartan 1 each 02/25/25 09:00 03/04/25 12:06 Sacubitril/Valsartan 97-103 Mg PO Not Given BID CHANNING Spironolactone 25 mg 02/25/25 17:30 03/04/25 12:06 Spironolactone 25 Mg Tablet PO Not Given DAILY CHANNING Trazodone HCl 50 mg 02/24/25 16:35 03/03/25 20:51 Trazodone 50 Mg Tablet PO 50 mg BEDTIME PRN Administration SLEEP PFSH Acute 2 PFSH: Medical History (Updated 02/25/25 @ 16:30 by Rasheed Sin MD) Cardiac resynchronization therapy defibrillator (SATURATION EQUIPMENT OPERATOR-D) in place CKD (chronic kidney disease), stage II Congestive heart failure York Heart Association class III, [facility] Dyslipidemia (high LDL; low HDL) Hypertension Varicose veins of both lower extremities Smoker GERD (gastroesophageal reflux disease) Family History Father Suicide Mother No problems noted. Grandmother Heart attack Social History Smoking and tobacco/nicotine status: current every day tobacco/nicotine user Alcohol intake: former Substance/Drug Use: current Substance/Drug use frequency: few times a week Vitals/I&O/Wt Last Vital Signs Temp 97.4 F L 03/04/25 04:40 Pulse 96 03/04/25 10:43 Resp 17 03/04/25 04:40 BP 90/44 03/04/25 10:43 Pulse Ox 100 03/04/25 04:40 O2 Del Method Room Air 03/04/25 04:40 03/03/25 03/04/25 03/04/25 22:59 06:59 14:59 Intake Total 360 / 360 Balance 360 / 360 Physical Exam 2 Const: COMMON NORMALS: no acute distress, patient oriented x3, alert and well nourished GENERAL APPEARANCE: cooperative and comfortable HENMT: COMMON NORMALS: normocephalic, Normal external nose present and moist oral mucous membranes HEAD & SCALP: normocephalic NOSE: Normal external nose present Eye: COMMON NORMALS: Equal, round and reactive pupils present PUPIL: Yes Equal, round and reactive pupils present Neck/C-Spine: COMMON NORMALS: no JVD Resp: COMMON NORMALS: normal respiratory effort, No retractions and clear to auscultation bilaterally AUSCULTATION: clear to auscultation bilaterally Cardio: COMMON NORMALS: no JVD, S1 normal heart sound present and S2 normal heart sound present HEART SOUNDS: S1 normal heart sound present and S2 normal heart sound present GI: COMMON NORMALS: Normal to inspection, nondistended, normoactive bowel sounds present Extremity: COMMON NORMALS: normal to inspection, full ROM and no pedal edema Neuro: COMMON NORMALS: patient oriented x3 SENSORIUM/ORIENTATION: Yes alert Data 02/24/25 15:15 02/24/25 15:15 A&P Assessment and plan 1. Low blood pressure readin. Congestive heart failure: 3. Dyslipidemia (high LDL; low HDL): 4. Hypertension: Plan: Hypotension Congestive heart failure, chronic - Blood pressure 90/44 - Asymptomatic - Hold Lasix, metoprolol, Entresto, spironolactone - May begin to resume home medications if blood pressure sustains SBP greater than 110 Dyslipidemia Left bundle branch block - Holding blood pressure medications in the setting of hypotension - Status post pacemaker - Continue cardio protective medications History of hypertension - Hypotensive currently, holding home medications Hospitalist team appreciates the opportunity to consult in the medical management of this patient, we will continue to monitor blood pressures and coordinate with nursing staff on timing of resuming home medications. PDMP PDMP Reviewed: Not Reviewed Coding Level of Care Code 92706 Diagnoses Low blood pressure reading R03.1 Congestive heart failure I50.9 Dyslipidemia (high LDL; low HDL) E78.5 Hypertension I10
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
[2025-03-04 14:00] VITALS: BP 85/45; PULSE 87; RESP 16; TEMP 36.6; O2SAT 95
[2025-03-04 14:21] VITALS: BP 105/65
[2025-03-04 22:00] VITALS: BP 105/54; PULSE 109; RESP 16; TEMP 36.9; O2SAT 97
[2025-03-05 06:00] VITALS: BP 109/56; PULSE 91; RESP 14; TEMP 36.4; O2SAT 99; BMI 21.1
--- NOTE | 2025-03-05 07:51 | P.PN_ITS ---
Subjective 2 Subjective: Patient is a very pleasant 49-year-old female seen and examined at bedside on hospital consultation rounds this morning. Patient laying in bed, denies any chest pain or shortness of breath, dizziness, or weakness. Patient's blood pressure has been stable. Continue holding antihypertensives in the setting of low to normal blood pressure. Will advise to resume diuretics if patient begins to have any type of swelling. Given the patient's stability, hospitalist team will sign off, but we are available in the event the patient has further medical needs. Vitals/I&O/Wt Last Vital Signs Temp 97.6 F 03/05/25 06:00 Pulse 91 03/05/25 06:00 Resp 14 03/05/25 06:00 BP 109/56 03/05/25 06:00 Pulse Ox 99 03/05/25 06:00 O2 Del Method Room Air 03/04/25 14:00 03/04/25 03/05/25 03/05/25 22:59 06:59 14:59 Intake Total 480 / 840 Balance 480 / 840 Weight last 48 hrs Weight 54.034 kg Physical Exam 2 Const: COMMON NORMALS: no acute distress, patient oriented x3, alert and well nourished GENERAL APPEARANCE: cooperative and comfortable HENMT: COMMON NORMALS: normocephalic, Normal external nose present and moist oral mucous membranes HEAD & SCALP: normocephalic NOSE: Normal external nose present Eye: COMMON NORMALS: Equal, round and reactive pupils present PUPIL: Yes Equal, round and reactive pupils present Neck/C-Spine: COMMON NORMALS: no JVD Resp: COMMON NORMALS: normal respiratory effort, No retractions and clear to auscultation bilaterally AUSCULTATION: clear to auscultation bilaterally Cardio: COMMON NORMALS: no JVD, S1 normal heart sound present and S2 normal heart sound present HEART SOUNDS: S1 normal heart sound present and S2 normal heart sound present GI: COMMON NORMALS: Normal to inspection, nondistended, normoactive bowel sounds present Extremity: COMMON NORMALS: normal to inspection, full ROM and no pedal edema Neuro: COMMON NORMALS: patient oriented x3 SENSORIUM/ORIENTATION: Yes alert Data 02/24/25 15:15 02/24/25 15:15 A&P Assessment and plan 1. Low blood pressure readin. Congestive heart failure: 3. Dyslipidemia (high LDL; low HDL): 4. Hypertension: Plan: Hypotension, now resolved Congestive heart failure, chronic - Blood pressure 109/56 - Asymptomatic - Hold Lasix, metoprolol, Entresto, spironolactone - if patient's blood pressure elevates may resume entresto and if she has edema may resume lasix but for now will continue to hold - May begin to resume home medications if blood pressure sustains SBP greater than 110 Dyslipidemia Left bundle branch block - Holding blood pressure medications in the setting of hypotension - Status post pacemaker - Continue cardio-protective medications History of hypertension - Continue holding home medications - Hx of methamphetamine abuse, this may have been driving her blood pressure and now that she is no longer taking she is experiencing hypotension Hospitalist team appreciates the opportunity to consult in the medical management of this patient we will sign off for now but are available should this patient have further medical needs. PDMP PDMP Reviewed: Not Reviewed Attestations 2 Medical Necessity Statement*: Per attending Coding Level of Care Code 26248 Diagnoses Low blood pressure reading R03.1 Congestive heart failure I50.9 Dyslipidemia (high LDL; low HDL) E78.5 Hypertension I10
[2025-03-05] MEDS: paliperidone ER 6 mg Tablet PO (08:23)
[2025-03-05] MEDS: DAPAGLIFLOZIN 5 MG TABLET PO (08:23)
[2025-03-05 13:39] VITALS: BP 120/74; PULSE 97; RESP 15; TEMP 36.4; O2SAT 99
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
[2025-03-05 20:53] VITALS: BP 113/59; PULSE 91; RESP 16; TEMP 36.8; O2SAT 99
[2025-03-06 06:00] VITALS: BP 119/70; PULSE 102; RESP 17; TEMP 36.7; O2SAT 97
[2025-03-06] MEDS: paliperidone ER 6 mg Tablet PO (07:49)
[2025-03-06] MEDS: DAPAGLIFLOZIN 5 MG TABLET PO (07:49)
--- NOTE | 2025-03-06 10:50 | P.PN_ITS ---
Subjective 2 Subjective: Patient is a very pleasant 49 year old female seen and examined at bedside today. Patient is sitting up in her bed stating that her leg swelling has improved, she had experienced leg swelling last night and lasix was resumed. Patient had elevated heart rate >100 this morning, resuming metoprolol at lower dosing while continuing to monitor blood pressures. Blood pressure currently stable. Will continue to monitor blood pressures and carefully resume home medications, adjusting dosing based on ability to maintain appropriate blood pressure. All questions and concerns addressed with patient at bedside today. Vitals/I&O/Wt Last Vital Signs Temp 98.1 F 03/06/25 06:00 Pulse 102 H 03/06/25 06:00 Resp 17 03/06/25 06:00 BP 119/70 03/06/25 06:00 Pulse Ox 97 03/06/25 06:00 O2 Del Method Room Air 03/06/25 06:00 03/05/25 03/06/25 03/06/25 22:59 06:59 14:59 Intake Total 480 / 480 Balance 480 / 480 Weight last 48 hrs Weight 54.034 kg Physical Exam 2 Const: COMMON NORMALS: no acute distress, patient oriented x3, alert and well nourished GENERAL APPEARANCE: cooperative and comfortable HENMT: COMMON NORMALS: normocephalic, Normal external nose present and moist oral mucous membranes HEAD & SCALP: normocephalic NOSE: Normal external nose present Eye: COMMON NORMALS: Equal, round and reactive pupils present PUPIL: Yes Equal, round and reactive pupils present Neck/C-Spine: COMMON NORMALS: no JVD Resp: COMMON NORMALS: normal respiratory effort, No retractions and clear to auscultation bilaterally AUSCULTATION: clear to auscultation bilaterally Cardio: COMMON NORMALS: no JVD, S1 normal heart sound present and S2 normal heart sound present HEART SOUNDS: S1 normal heart sound present and S2 normal heart sound present GI: COMMON NORMALS: Normal to inspection, nondistended, normoactive bowel sounds present Extremity: COMMON NORMALS: normal to inspection and full ROM NARRATIVE EXTREMITY EXAM: Trace dependent edema noted Neuro: COMMON NORMALS: patient oriented x3 SENSORIUM/ORIENTATION: Yes alert Data 02/24/25 15:15 02/24/25 15:15 A&P Assessment and plan 1. Low blood pressure readin. Congestive heart failure: 3. Dyslipidemia (high LDL; low HDL): 4. Hypertension: Plan: Hypotension, now resolved Congestive heart failure, chronic - Blood pressure 119/70 - Asymptomatic - Carefully resume lasix and reduced dosing metoprolol 50mg PO BID instead of 100mg and monitor - Auto substitute nonformulary Jardiance with formulary Farxiga Dyslipidemia Left bundle branch block - Status post pacemaker - Continue cardio-protective medications History of hypertension - Carefully resume home medications and adjust dosing - Hx of methamphetamine abuse, this may have been driving her blood pressure and now that she is no longer taking she is experiencing hypotension with her normal dosing of antihypertensives Hospitalist team appreciates the opportunity to consult in the medical management of this patient. PDMP PDMP Reviewed: Not Reviewed Attestations 2 Medical Necessity Statement*: Per attending Coding Level of Care Code 40114 Diagnoses Low blood pressure reading R03.1 Congestive heart failure I50.9 Dyslipidemia (high LDL; low HDL) E78.5 Hypertension I10
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
--- NOTE | 2025-03-06 15:56 | PC.NURSE ---
pt court pt went to court at approx [id number]
[2025-03-06 17:32] VITALS: BP 125/68; PULSE 96; RESP 17; O2SAT 100
[2025-03-06 20:56] VITALS: BP 120/61; PULSE 74; RESP 16; TEMP 36.6; O2SAT 99
[2025-03-07 05:40] VITALS: BP 125/77; PULSE 74; RESP 20; TEMP 36.3; O2SAT 97
[2025-03-07] MEDS: paliperidone ER 6 mg Tablet PO (08:37)
[2025-03-07] MEDS: DAPAGLIFLOZIN 5 MG TABLET PO (08:37)
--- NOTE | 2025-03-07 11:34 | P.PN_ITS ---
Subjective 2 Subjective: Patient seen and examined on hospital rounds today. Patient's blood pressure is much better controlled, no hypotensive episodes in the last 24 hours. Patient states mild headache, but no new concerns or complaints. Will resume Entresto today and asked that the unit continue to monitor this patient. As per the hospitalist team we will sign off at this time, but are available should the needs arise. Vitals/I&O/Wt Last Vital Signs Temp 97.4 F L 03/07/25 05:40 Pulse 74 03/07/25 05:40 Resp 20 H 03/07/25 05:40 BP 125/77 03/07/25 05:40 Pulse Ox 97 03/07/25 05:40 O2 Del Method Room Air 03/07/25 05:40 Physical Exam 2 Const: COMMON NORMALS: no acute distress, patient oriented x3, alert and well nourished GENERAL APPEARANCE: cooperative and comfortable HENMT: COMMON NORMALS: normocephalic, Normal external nose present and moist oral mucous membranes HEAD & SCALP: normocephalic NOSE: Normal external nose present Eye: COMMON NORMALS: Equal, round and reactive pupils present PUPIL: Yes Equal, round and reactive pupils present Neck/C-Spine: COMMON NORMALS: no JVD Resp: COMMON NORMALS: normal respiratory effort, No retractions and clear to auscultation bilaterally AUSCULTATION: clear to auscultation bilaterally Cardio: COMMON NORMALS: no JVD, S1 normal heart sound present and S2 normal heart sound present HEART SOUNDS: S1 normal heart sound present and S2 normal heart sound present GI: COMMON NORMALS: Normal to inspection, nondistended, normoactive bowel sounds present Extremity: COMMON NORMALS: normal to inspection and full ROM NARRATIVE EXTREMITY EXAM: Trace dependent edema noted Neuro: COMMON NORMALS: patient oriented x3 SENSORIUM/ORIENTATION: Yes alert Data 02/24/25 15:15 02/24/25 15:15 A&P Assessment and plan 1. Low blood pressure readin. Congestive heart failure: 3. Dyslipidemia (high LDL; low HDL): 4. Hypertension: Plan: Hypotension, now resolved Congestive heart failure, chronic - Blood pressure 125/77 - Asymptomatic - Carefully resume lasix and reduced dosing metoprolol 50mg PO BID instead of 100mg and monitor, resume Entresto - Auto substitute nonformulary Jardiance with formulary Farxiga Dyslipidemia Left bundle branch block - Status post pacemaker - Continue cardio-protective medications History of hypertension - Carefully resume home medications and adjust dosing - Hx of methamphetamine abuse, this may have been driving her blood pressure and now that she is no longer taking she is experiencing hypotension with her normal dosing of antihypertensives Hospitalist team appreciates the opportunity to consult in the medical management of this patient. We will sign off at this time. PDMP PDMP Reviewed: Not Reviewed Attestations 2 Medical Necessity Statement*: Per attending Coding Level of Care Code 57140 Diagnoses Low blood pressure reading R03.1 Congestive heart failure I50.9 Dyslipidemia (high LDL; low HDL) E78.5 Hypertension I10
[2025-03-07 14:00] VITALS: BP 106/53; PULSE 81; RESP 15; TEMP 36.8; O2SAT 96
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
[2025-03-07 19:45] VITALS: BP 97/52; PULSE 76; RESP 16; TEMP 36.7; O2SAT 99
[2025-03-08 06:00] VITALS: BP 111/55; PULSE 81; RESP 18; TEMP 36.6; O2SAT 95
[2025-03-08] MEDS: paliperidone ER 6 mg Tablet PO (07:55)
[2025-03-08] MEDS: DAPAGLIFLOZIN 5 MG TABLET PO (07:56)
[2025-03-08 14:00] VITALS: BP 120/74; PULSE 77; RESP 17; TEMP 36.4; O2SAT 98
[2025-03-08] MEDS: paliperidone palmitate 234 mg Syringe IM (15:15)
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
[2025-03-08 20:23] VITALS: BP 124/67; PULSE 67; RESP 15; O2SAT 99
--- NOTE | 2025-03-09 06:33 | PC.NURSE ---
vs not collected pt resting in bed charge notified resp 16
[2025-03-09] MEDS: paliperidone ER 6 mg Tablet PO (07:59)
[2025-03-09] MEDS: DAPAGLIFLOZIN 5 MG TABLET PO (07:59)
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
[2025-03-09 14:00] VITALS: BP 118/65; PULSE 86; RESP 16; TEMP 36.4; O2SAT 100
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
[2025-03-09 21:06] VITALS: BP 130/73; PULSE 98; RESP 17; TEMP 36.3; O2SAT 97
[2025-03-10 06:00] VITALS: RESP 16
--- NOTE | 2025-03-10 06:38 | PC.NURSE ---
pt asleep, vitals not done, nurse aware, resp 16
[2025-03-10] MEDS: DAPAGLIFLOZIN 5 MG TABLET PO (08:31)
[2025-03-10] MEDS: paliperidone ER 6 mg Tablet PO (08:31)
[2025-03-10 13:58] VITALS: BP 105/59; PULSE 105; RESP 16; TEMP 36.6; O2SAT 96
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
--- NOTE | 2025-03-10 19:19 | PC.NURSE ---
Pt complained of right ear pain. This nurse checked and could not see any fluid, drainage, object or build up of dirt or wax. Teaching on a possible deeper ear infection included reporting continual or worsening pain.
[2025-03-10 21:09] VITALS: BP 116/60; PULSE 101; RESP 18; TEMP 36.7; O2SAT 97
[2025-03-11 06:00] VITALS: RESP 16
--- NOTE | 2025-03-11 06:32 | PC.NURSE ---
vitals not done, nurse aware, pt asleep, resp 16
[2025-03-11] MEDS: DAPAGLIFLOZIN 5 MG TABLET PO (08:12)
[2025-03-11] MEDS: paliperidone ER 6 mg Tablet PO (08:12)
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
[2025-03-11 14:00] VITALS: BP 98/51; PULSE 122; RESP 17; TEMP 36.6; O2SAT 95
[2025-03-11 20:15] VITALS: BP 106/57; PULSE 97; RESP 18; TEMP 36.6; O2SAT 96
[2025-03-12 06:00] VITALS: BP 105/58; PULSE 113; RESP 18; TEMP 36.3; O2SAT 96
[2025-03-12] MEDS: paliperidone ER 6 mg Tablet PO (07:53)
[2025-03-12] MEDS: DAPAGLIFLOZIN 5 MG TABLET PO (07:54)
[2025-03-12 14:00] VITALS: BP 117/60; PULSE 107; RESP 18; TEMP 36.6; O2SAT 95
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
--- NOTE | 2025-03-12 16:08 | PC.NURSE ---
Dr. Luo gave verbal order for Invega 156mg IM for tomorrow am.
[2025-03-12 20:56] VITALS: BP 101/61; PULSE 98; RESP 18; TEMP 36.8; O2SAT 97
[2025-03-13 06:00] VITALS: RESP 14
--- NOTE | 2025-03-13 06:33 | PC.NURSE ---
vitals not done, nurse aware, pt asleep, resp 14
[2025-03-13] MEDS: DAPAGLIFLOZIN 5 MG TABLET PO (08:02)
[2025-03-13 09:04] VITALS: BP 101/61; PULSE 98; RESP 18; TEMP 36.8; O2SAT 97
[2025-03-13] MEDS: paliperidone palmitate 156 mg Syringe IM (09:38)
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
== END 2025-03-13 10:00 | disposition home or self-care (01) | DRG 885 ==
LOC: ER 15:49 → NP 16:04
PROVIDERS: Emergency Medicine; Admitting Provider Psychiatry & Neurology Psychiatry; Emergency Provider Physician Assistant; PCP Family Medicine Adult Medicine; Visit Provider Psychiatry & Neurology Psychiatry
DX: F29 Unspecified psychosis not due to a substance or known physiological condition (principal); F15.20 Other stimulant dependence, uncomplicated; I13.0 Hypertensive heart and chronic kidney disease with heart failure and stage 1 through stage 4 chronic kidney disease, or unspecified chronic kidney disease; F12.20 Cannabis dependence, uncomplicated; I95.9 Hypotension, unspecified; I44.7 Left bundle-branch block, unspecified; R63.6 Underweight; Z68.22 Body mass index [BMI] 22.0-22.9, adult; F17.200 Nicotine dependence, unspecified, uncomplicated; N18.2 Chronic kidney disease, stage 2 (mild); I50.9 Heart failure, unspecified; K21.9 Gastro-esophageal reflux disease without esophagitis; E78.5 Hyperlipidemia, unspecified; Z79.82 Long term (current) use of aspirin; Z88.0 Allergy status to penicillin
CPT/HCPCS: 80053; 80306; 80307; 85025; 93005; 96372; 97150; 97165; 99285; J9999; Q0162